=== PATIENT | male | born 1940 | race Caucasian/White ===

== ENCOUNTER 2020-10-05 08:20 | Outpatient (REF) | payer MEDICARE, SELFPAY ==
--- NOTE | 2020-10-05 | US_ITS ---
EXAMINATION: COLOR-FLOW DUPLEX IMAGING OF THE BILATERAL LOWER EXTREMITY ARTERIAL SYSTEM. VELOCITY MEASUREMENTS THROUGHOUT THE FEMORAL ARTERIES WITH ANKLE-BRACHIAL PERIPHERAL ARTERIAL TESTING. Interventional Radiologist: Matt Ferrell M.D., F.S.I.R., F.A.C.R. CLINICAL INFORMATION: This is an 79-year-old male with peripheral arterial disease. RIGHT FEMORAL RUNOFF VELOCITIES: The right common femoral artery measures 37 cm/s and monophasic. The right profunda femoral artery is 88 cm/s and is monophasic. Right proximal superficial femoral artery measures 11 cm/s and monophasic. Mid superficial femoral artery is occluded. Distal right superficial femoral artery is occluded. Right popliteal velocity is occluded. The posterior tibial artery velocity measures 23 cm/s and was monophasic. The right ankle-brachial index is 0.67. LEFT FEMORAL RUNOFF VELOCITIES: The left common femoral artery measures 90 cm/s and monophasic. The left profunda femoral artery is 34 cm/s and is monophasic. Left proximal superficial femoral artery measures 121 cm/s and monophasic. Mid superficial femoral artery is 42 cm/s and biphasic. Distal left superficial femoral artery is occluded. Left popliteal velocity is occluded. The posterior tibial artery velocity measures 16 cm/s and was monophasic. The left ankle-brachial index is 0.65 Atherosclerotic plaque is seen throughout the arteries bilaterally. US/US FAMILIA complete IMPRESSION: 1. Abnormal severe peripheral arterial testing with abnormal bilateral ankle-brachial index and velocity measurements. 2. There are likely bilateral superficial femoral artery occlusions.
--- NOTE | 2020-10-05 | US_ITS ---
EXAMINATION: COLOR-FLOW DUPLEX IMAGING OF THE BILATERAL LOWER EXTREMITY ARTERIAL SYSTEM. VELOCITY MEASUREMENTS THROUGHOUT THE FEMORAL ARTERIES WITH ANKLE-BRACHIAL PERIPHERAL ARTERIAL TESTING. Interventional Radiologist: Matt Ferrell M.D., F.S.I.R., F.A.C.R. CLINICAL INFORMATION: This is an 79-year-old male with peripheral arterial disease. RIGHT FEMORAL RUNOFF VELOCITIES: The right common femoral artery measures 37 cm/s and monophasic. The right profunda femoral artery is 88 cm/s and is monophasic. Right proximal superficial femoral artery measures 11 cm/s and monophasic. Mid superficial femoral artery is occluded. Distal right superficial femoral artery is occluded. Right popliteal velocity is occluded. The posterior tibial artery velocity measures 23 cm/s and was monophasic. The right ankle-brachial index is 0.67. LEFT FEMORAL RUNOFF VELOCITIES: The left common femoral artery measures 90 cm/s and monophasic. The left profunda femoral artery is 34 cm/s and is monophasic. Left proximal superficial femoral artery measures 121 cm/s and monophasic. Mid superficial femoral artery is 42 cm/s and biphasic. Distal left superficial femoral artery is occluded. Left popliteal velocity is occluded. The posterior tibial artery velocity measures 16 cm/s and was monophasic. The left ankle-brachial index is 0.65 Atherosclerotic plaque is seen throughout the arteries bilaterally. US/US arterial duplex LE BI IMPRESSION: 1. Abnormal severe peripheral arterial testing with abnormal bilateral ankle-brachial index and velocity measurements. 2. There are likely bilateral superficial femoral artery occlusions.
== END 2020-10-05 08:21 | disposition home or self-care (01) ==
LOC: HO.US 08:20
PROVIDERS: PCP Internal Medicine; Visit Provider Surgery Vascular Surgery
DX: I73.9 Peripheral vascular disease, unspecified (principal)
CPT/HCPCS: 93923; 93925

== ENCOUNTER → 2020-10-29 09:25 | Outpatient (REF) | payer MEDICARE, SELFPAY ==
--- NOTE | 2020-10-29 | CA_ITS ---
Transthoracic Echocardiogram Patient (Last, First, Middle): Javier Salguero P Gender: Male Date of : 1940 Age: 79 Procedure Date: 10/29/2020 Procedure Type: Transthoracic Echocardiogram Location: OP Height: 170.18 cm Weight: 77.11 kg BSA: 1.89 m2 Heart Rate: bpm BP: 146 / 78 mmHg Tail End Rider: BERNICE Referring MD: Silas Campos MD Pension Consultant: Silas Campos MD Symptoms: ATHEROSCLERTIC HEART DISEASE. Study Quality: Good ECG Rhythm: Sinus Conclusions: - 1. Normal LV systolic function with mild LVH with impaired relaxation filling pattern and elevated filling pressures 2. Moderately dilated left atrium 3. Moderate aortic stenosis 4. [id number] mitral regurgitation 5. Normal RV systolic pressure 6. No pericardial effusion Findings Left Ventricle Normal left ventricular size and systolic function. There is mildly increased left ventricular wall thickness. The visually estimated ejection fraction is between 60-65%. Spectral Doppler is indicative of an impaired relaxation filling pattern. Elevated filling pressures. Right Ventricle Normal right ventricular cavity size and systolic function. Atria The left atrium is moderately dilated. There is no evidence of interatrial shunt. The right atrium is likely dilated. Aortic Valve There is mild calcification of the aortic valve. There is moderate thickening of the aortic valve with reduced excursion. There is moderate aortic valve stenosis. The mean gradient is 24 mmHg. There is no aortic valve regurgitation. There is discrepancy between the calculated valve area and gradients. Dimensionless index is 0.3, this is more suggestive of moderate aortic valve stenosis. Mitral Valve There is mild anterior and posterior mitral leaflet thickening. There is mild mitral annular calcification. There is mild to moderate mitral valve regurgitation. There is no mitral valve stenosis. Pulmonic Valve The pulmonic valve was not well visualized. Tricuspid Valve Normal tricuspid valve structure. There is mild tricuspid valve regurgitation. The right ventricular systolic pressure is normal. The right ventricular systolic pressure is 27 mmHg. Normal right atrial pressure. There is no evidence of pulmonary hypertension. Great Vessels All visible segments of the aorta are normal in size. The pulmonary artery was not well visualized. Venous The inferior vena cava is normal in size and collapses greater than 50% with inspiration. Pericardium/Pleural There is no evidence of pericardial effusion. Prior Study Comparison Changes noted compared to prior study dated: 10/16/2019. aortic stenosis is worse Measurements 2D Linear Measurements IVSd: 1.50 0.6-0.9/0.6-1.0 cm LVIDd: 4.95 3.9-5.3/4.2-5.9 cm LVIDd Index: 2.62 2.4-3.2/2.2-3.1 cm/m2 LVIDs: 3.38 2.0-3.6 cm LVPWd: 1.09 0.7-1.1 cm Ao Root: 3.30 2.1-3.5 cm LA Diam: 4.30 2.7-3.8/3.0-4.0 cm LAIDs Index: 2.28 1.5-2.3 cm/m2 LV Mass: 319.67 67-162/88-224 g LV Mass Index: 169.14 43-95/49-115 g/m2 LVOT Diam: 2.10 3.0+(-)1.3 cm 2D Systolic Function EF 4C: 62.00 >55% EF 2C: 62.00 >55% Mitral Valve MV Pk E: 0.91 MV PK A: 1.05 MV Decel Time: 135.00 E/A: 0.90 E'Lateral: 6.38 E'Medial: 5.51 E/E' Med: 16.50 E/E' Lat: 14.20 PHT: 39.00 MVA PHT: 5.64 Decel [place]: 6.73 Aortic Valve AoV Pk Oscar: 3.33 AoV Mn Oscar: 2.23 AoV VTI: 91.20 AoV Pk Grad: 44.00 Aov Mn Grad: 24.00 IZZY Cont.VTI: 1.10 LVOT LVOT Pk Oscar: 0.99 LVOT Mn Oscar: 0.65 LVOT VTI: 0.23 LVOT Pk Grad: 4.00 LVOT Mn Grad: 2.00 LVOT Diam: 2.10 LVOT Area: 3.46 Diastolic Function MV Pk E: 0.91 MV Pk A: 1.05 E/A: 0.90 E'Medial: 5.51 E/E' Med: 16.50 E' Laterial: 6.38 E/E' Lat: 14.20 Tricuspid Valve TR Pk Oscar: 2.47 TR Pk Grad: 24.00 RA Press: 3.00 RVSP: 27.00 Great Vessels Aorta Ao Root-2D: 3.30 2.0-3.7 cm Ao Asc: 3.70 2.1-3.4 cm Updated in Other Vendor System with Status of Final Silas Campos MD electronically signed on 10/30/2020 2:59:57 PM with status of Final
== END ==
LOC: HO.CARD 09:25
PROVIDERS: PCP Internal Medicine; Visit Provider Internal Medicine Cardiovascular Disease
DX: I25.10 Atherosclerotic heart disease of native coronary artery without angina pectoris (principal); I35.0 Nonrheumatic aortic (valve) stenosis; Z95.1 Presence of aortocoronary bypass graft
CPT/HCPCS: 93306

== ENCOUNTER → 2020-11-05 09:06 | Outpatient (BNVA) | payer MEDICARE, SELFPAY | PROVIDERS: PCP Internal Medicine; Referring Provider Internal Medicine; Visit Provider Internal Medicine Cardiovascular Disease | DX: I73.9 Peripheral vascular disease, unspecified (principal); I65.23 Occlusion and stenosis of bilateral carotid arteries; I25.10 Atherosclerotic heart disease of native coronary artery without angina pectoris; I35.0 Nonrheumatic aortic (valve) stenosis; Z79.899 Other long term (current) drug therapy | CPT/HCPCS: 93005; 99212; Q3014 ==

== ENCOUNTER → 2021-05-10 09:41 | Outpatient (BNVA) | payer MEDICARE, SELFPAY | PROVIDERS: PCP Internal Medicine; Referring Provider Internal Medicine; Visit Provider Internal Medicine Cardiovascular Disease | DX: I25.10 Atherosclerotic heart disease of native coronary artery without angina pectoris (principal); I35.0 Nonrheumatic aortic (valve) stenosis | CPT/HCPCS: 99212 ==

== ENCOUNTER → 2021-10-29 08:10 | Outpatient (REF) | payer MEDICARE, SELFPAY ==
--- NOTE | 2021-10-29 08:13 | CA_ITS ---
Transthoracic Echocardiogram Patient (Last, First, Middle): Javier Salguero P Gender: Male Date of : 1940 Age: 80 Procedure Date: 10/29/2021 Procedure Type: Transthoracic Echocardiogram Location: OP Height: 170.18 cm Weight: 77.57 kg BSA: 1.89 m2 Heart Rate: bpm BP: 140 / 80 mmHg Cleater: DEMETRIO Referring MD: Silas Campos MD Symptoms: I35.0 - Nonrheumatic aortic (valve) stenosis Study Quality: Good ECG Rhythm: Sinus Conclusions: - The left ventricular systolic function is normal. The visually estimated ejection fraction is between 55-60%. - E/E prime ratio is >15, consistent with elevated filling pressures. - There is moderate aortic valve stenosis. - There is mild mitral annular calcification. There is mild mitral valve regurgitation. - Mild pulmonary hypertension is present. Findings Left Ventricle Normal left ventricular cavity size. The left ventricular systolic function is normal. The visually estimated ejection fraction is between 55-60%. There is no evidence of regional wall motion abnormalities. E/E prime ratio is >15, consistent with elevated filling pressures. Evidence suggests grade I (mild) diastolic dysfunction. There is moderate septal and moderate basal asymmetric hypertrophy. Right Ventricle Normal right ventricular cavity size and systolic function. Atria The left atrium is mildly dilated. The right atrium is normal in size. Aortic Valve There is severe calcification of the aortic valve. There is moderate aortic valve stenosis. The peak aortic velocity is 3.47 m/s with a calculated peak gradient of 48 mmHg. The mean gradient is 30 mmHg. The aortic valve area is 1.00 cm2. There is mild aortic valve regurgitation. Dimensionless index 0.3. Stroke volume index 46cc. Mitral Valve There is mild mitral annular calcification. There is mild mitral valve regurgitation. There is no mitral valve stenosis. Pulmonic Valve The pulmonic valve was not well visualized. Tricuspid Valve Normal tricuspid valve structure. There is mild tricuspid valve regurgitation. The right ventricular systolic pressure is 41 mmHg. Mild pulmonary hypertension is present. Great Vessels The aortic annulus, sinuses of valsalva, and asc aorta are normal in size. Venous The inferior vena cava is mildly dilated and collapses greater than 50% with inspiration. Pericardium/Pleural There is no evidence of pericardial effusion. Prior Study Comparison Changes noted compared to prior study dated: 10/29/2020. Slight increase in aortic gradients, pulmonary artery pressure. Measurements 2D Linear Measurements IVSd: 1.27 0.6-0.9/0.6-1.0 cm LVIDd: 4.28 3.9-5.3/4.2-5.9 cm LVIDd Index: 2.26 2.4-3.2/2.2-3.1 cm/m2 LVIDs: 3.08 2.0-3.6 cm LVPWd: 1.27 0.7-1.1 cm Ao Root: 3.60 2.1-3.5 cm LA Diam: 4.30 2.7-3.8/3.0-4.0 cm LAIDs Index: 2.28 1.5-2.3 cm/m2 LV Mass: 248.36 67-162/88-224 g LV Mass Index: 131.41 43-95/49-115 g/m2 LVOT Diam: 2.10 3.0+(-)1.3 cm 2D Systolic Function EF 4C: 55.80 >55% EF 2C: 55.20 >55% EF BiP: 54.80 >55% Mitral Valve MV Pk E: 0.93 MV PK A: 1.18 MV Decel Time: 218.00 E/A: 0.80 E'Lateral: 6.42 E'Medial: 5.00 E/E' Med: 18.50 E/E' Lat: 14.40 PHT: 64.00 MVA PHT: 3.44 Decel [place]: 4.26 Aortic Valve AoV Pk Oscar: 3.47 AoV Mn Oscar: 2.62 AoV VTI: 0.87 AoV Pk Grad: 48.00 Aov Mn Grad: 30.00 IZZY Cont.VTI: 1.00 LVOT LVOT Pk Oscar: 1.05 LVOT Mn Oscar: 0.65 LVOT VTI: 0.25 LVOT Pk Grad: 4.00 LVOT Mn Grad: 2.00 LVOT Diam: 2.10 LVOT Area: 3.46 Diastolic Function MV Pk E: 0.93 MV Pk A: 1.18 E/A: 0.80 E'Medial: 5.00 E/E' Med: 18.50 E' Laterial: 6.42 E/E' Lat: 14.40 Right Ventricle TAPSE (mm): 1.75 TVS' Oscar: 9.14 Tricuspid Valve TR Pk Oscar: 2.88 TR Pk Grad: 33.00 RA Press: 8.00 RVSP: 41.00 Great Vessels Aorta Ao Root-2D: 3.60 2.0-3.7 cm Ao Asc: 3.60 2.1-3.4 cm Ao Arch: 3.20 Updated in Other Vendor System with Status of Final Corby Crouch MD electronically signed on 10/30/2021 12:11:43 PM with status of Final
== END ==
LOC: HO.CARD 08:10
PROVIDERS: PCP Internal Medicine; Visit Provider Internal Medicine Cardiovascular Disease
DX: I35.0 Nonrheumatic aortic (valve) stenosis (principal)
CPT/HCPCS: 93306

== ENCOUNTER → 2021-11-03 08:27 | Outpatient (BNVA) | payer MEDICARE, SELFPAY | PROVIDERS: PCP Internal Medicine; Referring Provider Internal Medicine; Visit Provider Internal Medicine Cardiovascular Disease | DX: I25.10 Atherosclerotic heart disease of native coronary artery without angina pectoris (principal); I35.0 Nonrheumatic aortic (valve) stenosis | CPT/HCPCS: 93005; 99212 ==

== ENCOUNTER 2021-11-04 06:54 | Outpatient (REF) | payer MEDICARE, SELFPAY ==
[2021-11-04 07:30] LABS: Cholesterol 136 mg/dL; HDL Cholesterol 40 mg/dL; LDL Cholesterol Calculated 70 mg/dl; Triglycerides 131 mg/dL
== END 2021-11-04 06:55 | disposition home or self-care (01) ==
LOC: HO.LAB 06:54
PROVIDERS: Visit Provider Internal Medicine Cardiovascular Disease
DX: I25.10 Atherosclerotic heart disease of native coronary artery without angina pectoris (principal)
CPT/HCPCS: 36415; 80061

== ENCOUNTER 2021-11-29 13:11 | Outpatient (REF) | payer MEDICARE, SELFPAY ==
--- NOTE | ~2021-11-29 | US_ITS ---
EXAMINATION: US ARTERIAL DOPPLER LOWER EXTREMITY, BILATERAL US FAMILIA COMPLETE CLINICAL INFORMATION: Peripheral vascular disease. COMPARISON: 10/05/2020 and 03/19/2020. TECHNIQUE: Ankle pressure measurements, ankle-brachial indices and PVR tracings were obtained of the lower extremity arterial system bilaterally. In addition, duplex Doppler techniques with waveform analysis and measurement of velocities in the common femoral, profunda femoral, superficial femoral, popliteal and tibial arteries was performed. The study was performed only at rest. FINDINGS: NONINVASIVE ASSESSMENT OF THE ARTERIES OF BOTH LOWER EXTREMITIES WITH ABIs: Right Leg: Right ankle-brachial index: 0.63 PVR (ankle): Dampened Left Leg: Ankle-brachial index: 0.59 PVR (ankle): Dampened BILATERAL LOWER EXTREMITY DUPLEX ULTRASOUND: Right Leg: Common femoral artery: 22.9 cm/s. Diastolic flow reversal: No Profunda femoris artery: 86.4 cm/s. Diastolic flow reversal: No Superficial femoral artery (proximal): 10.2 cm/s. Diastolic flow reversal: No Superficial femoral artery (mid): Occluded Superficial femoral artery (distal): Occluded Popliteal artery (distal): 8.1 cm/s. Diastolic flow reversal: No (the proximal popliteal artery is occluded) Posterior tibial artery: 46.3 cm/s. Diastolic flow reversal: No Peroneal artery: 19.8 cm/s. Diastolic flow reversal: No Multiple arterial collaterals are present throughout the leg. Left Leg: Common femoral artery: 61.3 cm/s. Diastolic flow reversal: No Profunda femoris artery: 94.3 cm/s. Diastolic flow reversal: No Superficial femoral artery (proximal): 24.5 cm/s. Diastolic flow reversal: No Superficial femoral artery (mid): Occluded Superficial femoral artery (distal): 10.6 cm/s. Diastolic flow reversal: No Popliteal artery (distal): 27.6 cm/s. Diastolic flow reversal: No Posterior tibial artery: 26.4 cm/s. Diastolic flow reversal: No Multiple arterial collaterals are present throughout the leg. US/US arterial duplex LE BI IMPRESSION: RIGHT LEG: FAMILIA 0.63. There is persistent occlusion of the mid and distal SFA as well as occlusion of the proximal popliteal artery, similar to the comparison examination. Decreased velocity and monophasic waveform within the common femoral artery suggests inflow stenosis. LEFT LEG: FAMILIA 0.59. There is focal occlusion of the mid SFA. Mildly decreased velocity and monophasic waveform within the common femoral artery suggests inflow stenosis. FAMILIA Reference: - >0.97-1.25 = normal - no significant arterial disease - 0.75-0.96 = mild peripheral arterial disease - 0.5-0.74 = moderate peripheral arterial disease - <0.50 = severe peripheral arterial disease
--- NOTE | ~2021-11-29 | US_ITS ---
EXAMINATION: US EXTRACRANIAL CAROTID DUPLEX, BILATERAL CLINICAL INFORMATION: History of carotid artery stenosis. COMPARISON: March 19, 2020 and March 19, 2019 TECHNIQUE: Real-time ultrasound and Doppler techniques (integrating B-mode 2-D vascular images, Doppler spectral analysis and color-flow Doppler imaging) were utilized to interrogate the extracranial carotid arteries, the vertebral arteries and proximal subclavian arteries bilaterally. The degree of stenosis is determined by criteria similar to NASCET. FINDINGS: Right Side: 1. There is mild atherosclerotic plaque seen in the bifurcation/proximal ICA region. 2. The common carotid artery PSV proximally is 96.2 cm/s and distally 85.6 cm/s. 3. The proximal internal carotid artery velocities are 86.2 cm/s systolic and 25.2 cm/s diastolic. 4. The proximal external carotid artery PSV is 85 cm/s. 5. The vertebral artery shows antegrade flow. 6. The subclavian artery waveforms are normal. Left Side: 1. There is moderate atherosclerotic plaque seen in the bifurcation/proximal ICA region. 2. The common carotid artery PSV proximally is 83.8 cm/s and distally 56.2 cm/s. 3. The proximal internal carotid artery velocities are 183 cm/s systolic and 34 cm/s diastolic. 4. The proximal external carotid artery PSV is 142 cm/s. 5. The vertebral artery shows antegrade flow. 6. The subclavian artery waveforms are normal. US/US carotid duplex BI IMPRESSION: 1. RIGHT: Minimal, non-hemodynamically significant stenosis of the proximal right internal carotid artery corresponding to a 0-49% stenosis by velocity criteria. 2. LEFT: Moderate, hemodynamically significant stenosis of the proximal left internal carotid artery corresponding to a 50-79% stenosis by velocity criteria. 3. There is no change in the category severity of disease when compared to the previous study dated March 19, 2020..
== END 2021-11-29 13:12 | disposition home or self-care (01) ==
LOC: HO.US 13:11
PROVIDERS: Visit Provider Surgery Vascular Surgery
DX: I73.9 Peripheral vascular disease, unspecified (principal); I65.23 Occlusion and stenosis of bilateral carotid arteries
CPT/HCPCS: 93880; 93923; 93925

== ENCOUNTER → 2021-12-07 10:47 | Outpatient (BNVA) | payer MEDICARE, SELFPAY | PROVIDERS: PCP Internal Medicine; Visit Provider Surgery Vascular Surgery | DX: I73.9 Peripheral vascular disease, unspecified (principal); I65.23 Occlusion and stenosis of bilateral carotid arteries | CPT/HCPCS: 99212 ==

== ENCOUNTER → 2022-05-12 08:31 | Outpatient (BNVA) | payer MEDICARE, SELFPAY | PROVIDERS: PCP Internal Medicine; Referring Provider Internal Medicine; Visit Provider Internal Medicine Cardiovascular Disease | DX: I25.10 Atherosclerotic heart disease of native coronary artery without angina pectoris (principal); I35.0 Nonrheumatic aortic (valve) stenosis | CPT/HCPCS: 99212 ==

== ENCOUNTER 2022-12-13 09:48 | Outpatient (REF) | payer MEDICARE, SELFPAY ==
--- NOTE | ~2022-12-13 | US_ITS ---
EXAMINATION: US EXTRACRANIAL CAROTID DUPLEX, BILATERAL CLINICAL INFORMATION: Carotid stenosis COMPARISON: 11/29/2021 TECHNIQUE: Real-time ultrasound and Doppler techniques (integrating B-mode 2-D vascular images, Doppler spectral analysis and color-flow Doppler imaging) were utilized to interrogate the extracranial carotid arteries, the vertebral arteries and proximal subclavian arteries bilaterally. The degree of stenosis is determined by criteria similar to NASCET. FINDINGS: Right Side: 1. There is moderate atherosclerotic plaque seen in the bifurcation/proximal ICA region. 2. The common carotid artery PSV proximally is 84 cm/s and distally 79 cm/s. 3. The proximal internal carotid artery velocities are 36 cm/s systolic and 9 cm/s diastolic. 4. The proximal external carotid artery PSV is 80 cm/s. 5. The vertebral artery shows antegrade flow. 6. The subclavian artery waveforms are normal. Left Side: 1. There is moderate atherosclerotic plaque seen in the bifurcation/proximal ICA region. 2. The common carotid artery PSV proximally is 80 cm/s and distally 52 cm/s. 3. The proximal internal carotid artery velocities are 177 cm/s systolic and 56 cm/s diastolic. 4. The proximal external carotid artery PSV is 127 cm/s. 5. The vertebral artery shows antegrade flow. 6. The subclavian artery waveforms are normal. US/US carotid duplex BI IMPRESSION: 1. RIGHT: Minimal, non-hemodynamically significant stenosis of the proximal right internal carotid artery corresponding to a 0-49% stenosis by velocity criteria. 2. LEFT: Moderate, hemodynamically significant stenosis of the proximal left internal carotid artery corresponding to a 50-79% stenosis by velocity criteria. 3. There is no change in the category severity of disease when compared to the previous study dated 11/29/2021.
--- NOTE | ~2022-12-13 | US_ITS ---
EXAMINATION: NONINVASIVE ASSESSMENT OF THE ARTERIES OF BOTH LOWER EXTREMITIES INCLUDING PVR EXAM AND BILATERAL LOWER EXTREMITY DUPLEX CLINICAL INFORMATION: Peripheral vascular disease, unspecified COMPARISON: Ultrasound 11/29/2021 TECHNIQUE: Ankle pulse volume recordings, ankle pressure measurements and ankle brachial indices were obtained of the lower extremity arterial system bilaterally in addition to duplex Doppler techniques with wave form analysis and measurement of velocities in the common femoral, profunda femoral, superficial femoral, popliteal, tibial and peroneal arteries. The study was performed only at rest. FINDINGS: RIGHT LEG 1. Right Ankle-Brachial Index: 0.63 (higher of the DP/PT), unchanged from prior >0.97-1.25 = normal - no significant arterial disease 0.75-0.96 = mild peripheral arterial disease 0.5-0.74 = moderate peripheral arterial disease <0.50 = severe peripheral arterial disease <0.30 = critical arterial disease 2. Segmental Pressures (mmHg): Brachial: 140 Ankle: PT 93, DP 91 3. PVR Waveforms: Ankle: Abnormal, dampened 4. Direct Duplex: External iliac artery: 100 cm/s, monophasic Common femoral artery: 11 cm/s, monophasic Profunda femoris artery: 101 cm/s, monophasic Superficial femoral artery (proximal): 17.3 cm/s, monophasic Superficial femoral artery (mid): No demonstrable flow Superficial femoral artery (distal): 23.1 cm/s, monophasic There is a collateral vessel to the distal superficial femoral artery, peak systolic velocity 35.7 cm/s, monophasic Proximal Popliteal artery: 36.2 cm/s, monophasic Distal popliteal artery: 6.7 cm/s, monophasic Mid posterior tibial artery: 30.7 cm/s, monophasic Peroneal artery: 14.3 cm/s, monophasic LEFT LE. Left Ankle-Brachial Index: 0.58 (higher of the DP/PT), previously 0.59 >0.97-1.25 = normal - no significant arterial disease 0.75-0.96 = mild peripheral arterial disease 0.5-0.74 = moderate peripheral arterial disease <0.50 = severe peripheral arterial disease <0.30 = critical arterial disease 2. Segmental Pressures: Brachial: 147 Ankle: PT 85, DP 74 3. PVR Waveforms: Ankle: Abnormal, dampened 4. Direct Duplex: Common femoral artery: 80.9 cm/s, monophasic Profunda femoris artery: 511 cm/s, monophasic Superficial femoral artery (proximal): 53.4 cm/s, monophasic Superficial femoral artery (mid): No demonstrable flow Superficial femoral artery (distal): 12.6 cm/s, monophasic Proximal Popliteal artery: 35.8 cm/s, monophasic Mid posterior tibial artery: 34.6 cm/s, monophasic Peroneal artery: 12.9 cm/s, monophasic US/US arterial duplex LE BI IMPRESSION: 1. Right FAMILIA 0.63, unchanged from prior. There is monophasic flow throughout the right lower extremity. There is decreased velocity within the common femoral artery compared with the external iliac artery suggestive of inflow disease. There is probable segmental occlusion of the superficial femoral artery at its midportion 2. Left FAMILIA 0.58, previously 0.59. There is monophasic flow throughout the left lower extremity. There is elevated velocity at the profunda femoris origin suggesting a focal stenosis. There is occlusion at the midportion of the superficial femoral artery with reformation of flow distally.
== END 2022-12-13 09:49 | disposition home or self-care (01) ==
LOC: HO.US 09:48
PROVIDERS: PCP Internal Medicine; Visit Provider Surgery Vascular Surgery
DX: I65.23 Occlusion and stenosis of bilateral carotid arteries (principal); I73.9 Peripheral vascular disease, unspecified
CPT/HCPCS: 93880; 93923; 93925

== ENCOUNTER → 2022-12-22 13:17 | Outpatient (BNVA) | payer MEDICARE, SELFPAY | PROVIDERS: PCP Internal Medicine; Visit Provider Surgery Vascular Surgery | DX: I65.23 Occlusion and stenosis of bilateral carotid arteries (principal); I73.9 Peripheral vascular disease, unspecified | CPT/HCPCS: 99212 ==

== ENCOUNTER → 2023-04-28 08:50 | Outpatient (REF) | payer MEDICARE, SELFPAY ==
--- NOTE | 2023-04-28 08:52 | CA_ITS ---
Transthoracic Echocardiogram Patient (Last, First, Middle): Javier Salguero P Gender: Male Date of : 1940 Age: 82 Procedure Date: 04/28/2023 Procedure Type: Transthoracic Echocardiogram Location: OP Height: 170.18 cm Weight: 77.11 kg BSA: 1.89 m2 Heart Rate: 79 bpm BP: 130 / 70 mmHg Russian Language Instructor: TO Referring MD: Silas Campos MD Local Operator: Silas Campos MD Symptoms: I35.0 - Nonrheumatic aortic (valve) stenosis Study Quality: Adequate ECG Rhythm: Sinus Conclusions: - 1. Normal LV systolic function with impaired relaxation filling pattern 2. Mildly dilated left atrium 3. Severe aortic stenosis with mean gradient of 40 mmHg 4. Rbzf-ah-xfhuwnhe mitral regurgitation 5. Mildly dilated ascending aorta at 3.9 cm 6. Normal RV systolic pressure 7. No pericardial effusion Findings Left Ventricle Normal left ventricular size, thickness, and systolic function. The visually estimated ejection fraction is between 60-65%. Spectral Doppler is indicative of an impaired relaxation filling pattern. E/E prime ratio is between 8 and 15 consistent with indeterminate filling pressures. There is mild septal asymmetric hypertrophy. Right Ventricle Normal right ventricular cavity size and systolic function. Atria The left atrium is mildly dilated. There is no evidence of interatrial shunt. The right atrium is likely dilated. Aortic Valve There is mild calcification of the aortic valve. There is mild thickening of the aortic valve. There is severe aortic valve stenosis. The peak aortic gradient is 69 mmHg.The mean gradient is 40 mmHg. The aortic valve area is 0.89 cm2. There is no aortic valve regurgitation. Mitral Valve There is mild anterior and moderate posterior mitral leaflet thickening. There is moderate mitral annular calcification. There is mild to moderate mitral valve regurgitation. There is no mitral valve stenosis. Pulmonic Valve The pulmonic valve is likely normal. There is trace to mild pulmonic valve regurgitation. Tricuspid Valve Normal tricuspid valve structure. There is trace tricuspid valve regurgitation. The right ventricular systolic pressure is normal. The right ventricular systolic pressure is 24 mmHg. Normal right atrial pressure. There is no evidence of pulmonary hypertension. Great Vessels The pulmonary artery was not well visualized. There is mild dilatation of the ascending aorta measuring 3.90 cm. Venous The inferior vena cava is normal in size and collapses greater than 50% with inspiration. Pericardium/Pleural There is no evidence of pericardial effusion. Prior Study Comparison Changes noted compared to prior study dated: 10/29/2021. Aortic stenosis is severe Measurements 2D Linear Measurements IVSd: 1.43 0.6-0.9/0.6-1.0 cm LVIDd: 4.47 3.9-5.3/4.2-5.9 cm LVIDd Index: 2.37 2.4-3.2/2.2-3.1 cm/m2 LVIDs: 2.65 2.0-3.6 cm LVPWd: 1.02 0.7-1.1 cm LA Diam: 4.10 2.7-3.8/3.0-4.0 cm LAIDs Index: 2.17 1.5-2.3 cm/m2 LV Mass: 298.53 67-162/88-224 g LV Mass Index: 157.95 43-95/49-115 g/m2 LVOT Diam: 2.20 3.0+(-)1.3 cm 2D Systolic Function EF 4C: 60.10 >55% Mitral Valve MV VTI: 0.34 MV Pk Oscar: 1.39 MV Mn Oscar: 0.82 MV Pk Grad: 8.00 MV Mn Grad: 3.00 MVA Continuity: 2.44 MR Vol - PW Dopp: 19.80 MR VTI: 2.20 MR ERO: 9.00 MR Alias Oscar: 0.39 MR RAD: 0.50 Aortic Valve AoV Pk Oscar: 4.15 AoV Mn Oscar: 2.97 AoV VTI: 0.94 AoV Pk Grad: 69.00 Aov Mn Grad: 40.00 IZZY Cont.VTI: 0.89 LVOT LVOT Pk Oscar: 0.95 LVOT Mn Oscar: 0.66 LVOT VTI: 0.22 LVOT Pk Grad: 4.00 LVOT Mn Grad: 2.00 LVOT Diam: 2.20 LVOT Area: 3.80 Right Ventricle TAPSE (mm): 18.70 TVS' Oscar: 10.00 Tricuspid Valve TR Pk Oscar: 2.29 TR Pk Grad: 21.00 RA Press: 3.00 RVSP: 24.00 Great Vessels Aorta Sinus of Valsalva: 3.61 2.0-3.5 cm Ao Asc: 3.90 2.1-3.4 cm Updated in Other Vendor System with Status of Final Silas Campos MD electronically signed on 05/01/2023 9:40:21 AM with status of Final
== END ==
LOC: HO.CARD 08:50
PROVIDERS: PCP Internal Medicine; Visit Provider Internal Medicine Cardiovascular Disease
DX: I35.0 Nonrheumatic aortic (valve) stenosis (principal)
CPT/HCPCS: 93306

== ENCOUNTER → 2023-05-16 08:41 | Outpatient (BNVA) | payer MEDICARE, SELFPAY | PROVIDERS: PCP Internal Medicine; Referring Provider Internal Medicine; Visit Provider Internal Medicine Cardiovascular Disease | DX: I35.0 Nonrheumatic aortic (valve) stenosis (principal); I25.10 Atherosclerotic heart disease of native coronary artery without angina pectoris | CPT/HCPCS: 93005; 99212 ==

== ENCOUNTER 2023-08-29 16:02 | Observation (INO) | payer MEDICARE, SELFPAY ==
--- NOTE | ~2023-08-29 | US_ITS ---
EXAMINATION: US EXTRACRANIAL CAROTID DUPLEX, BILATERAL CLINICAL INFORMATION: Syncope and history of left carotid stenosis COMPARISON: 12/13/2022 TECHNIQUE: Real-time ultrasound and Doppler techniques (integrating B-mode 2-D vascular images, Doppler spectral analysis and color-flow Doppler imaging) were utilized to interrogate the extracranial carotid arteries, the vertebral arteries and proximal subclavian arteries bilaterally. The degree of stenosis is determined by criteria similar to NASCET. FINDINGS: Right Side: 1. There is mild atherosclerotic plaque seen in the bifurcation/proximal ICA region. 2. The common carotid artery PSV proximally is 83.8 cm/s and distally 114 cm/s. 3. The proximal internal carotid artery velocities are 102 cm/s systolic and 36.4 cm/s diastolic. 4. The proximal external carotid artery PSV is 82.9 cm/s. 5. The vertebral artery shows antegrade flow. 6. The subclavian artery waveforms are normal. Left Side: 1. There is moderate atherosclerotic plaque seen in the bifurcation/proximal ICA region. 2. The common carotid artery PSV proximally is 123 cm/s and distally 89.7 cm/s. 3. The proximal internal carotid artery velocities are 176 cm/s systolic and 48.4 cm/s diastolic. 4. The proximal external carotid artery PSV is 204 cm/s. 5. The vertebral artery shows antegrade flow. 6. The subclavian artery waveforms are normal. US/US carotid duplex BI IMPRESSION: 1. RIGHT: Minimal, non-hemodynamically significant stenosis of the proximal right internal carotid artery corresponding to a 0-49% stenosis by velocity criteria. 2. LEFT: Moderate, hemodynamically significant stenosis of the proximal left internal carotid artery corresponding to a 50-79% stenosis by velocity criteria. 3. There is no change in the category severity of disease when compared to the previous study dated 12/13/2022.
--- NOTE | ~2023-08-29 | XR_ITS ---
EXAMINATION: XR CHEST CLINICAL INFORMATION: TIA COMPARISON: None available. TECHNIQUE: Frontal view of the chest was obtained. FINDINGS: Median sternotomy wires. Heart size within normal limits. Aortic calcifications. No vascular congestion. Left base atelectasis. No consolidations or effusions. Bony structures are intact.. XR/XR chest 1V IMPRESSION: Left base atelectasis.
--- NOTE | ~2023-08-29 | CT_ITS ---
EXAMINATION: CT HEAD WITHOUT CONTRAST CLINICAL INFORMATION: Fall. Pain COMPARISON: Portions of previous 05/18/20 TECHNIQUE: Multidetector CT examination of the head is performed without contrast. This CT examination was performed using dose optimization techniques as appropriate, variously including the following: *Automated exposure control *Adjustment of mA and/or kV according to patient size (this includes techniques or standardized protocols for targeted exams where dose is matched to indication/reason for exam; i.e. extremities or head) *Use of iterative reconstruction technique DLP: 642 mGy-cm FINDINGS: There is no evidence of a recent intracranial hemorrhage or extra-axial collection. The midline structures are nondisplaced. The ventricles, cisterns, and sulci are within normal limits. There is no evidence of an intra-axial mass. There are no suspicious focal areas of abnormal brain attenuation. The mckeon-white interface is within normal limits. There is no evidence of acute territorial infarct. There is mild to moderate nonspecific white matter low attenuation similar to previous. This could be related to microangiopathy The paranasal sinuses and mastoids are within normal limits. I suspect a scalp hematoma. CT/CT head/brain wo IV con IMPRESSION: 1. There is no evidence of a recent intracranial hemorrhage. 2. No acute infarct. 3. Nonspecific unchanged white matter disease
[2023-08-29 16:12] VITALS: BP 166/120; PULSE 88; O2SAT 98
--- NOTE | 2023-08-29 16:19 | ECG_ITS ---
Test Reason : fall Blood Pressure : / mmHG Vent. Rate : 086 BPM Atrial Rate : 086 BPM P-R Int : 154 ms QRS Dur : 120 ms QT Int : 368 ms P-R-T Axes : 022 -02 066 degrees QTc Int : 440 ms Normal sinus rhythm Left ventricular hypertrophy with QRS widening ( [employer] , [employer] product ) Nonspecific ST and T wave abnormality Abnormal ECG When compared with ECG of 23-NOV-2011 07:10, No significant change was found Referred By: Adrianna Hanks Electronically Signed By:ADELA BURGESS
--- NOTE | 2023-08-29 16:20 | ED_ITS ---
HPI - General Adult General Chief complaint: Altered Mental Status Stated complaint: STROKE ALERT Time Seen by Provider: 08/29/23 16:18 Source: patient, family (Daughter) and EMS Mode of arrival: EMS Limitations: no limitations History of Present Illness HPI narrative: 82-year-old male history of hypertension brought in by ambulance for evaluation of possible TIA versus stroke. Started with a mechanical fall the patient sustained this morning patient was going upstairs missed a step fell backward hitting the back of his head no LOC, patient landed on the back of his head and the left elbow causing skin tear and low back pain. Then the patient after that witnessed by his daughter for about few minutes period staring at her with no respond patient was not able to express himself or move, patient was not able to remember the event or recall any loss of consciousness. On arrival patient is awake, moving 4 extremities, was able to give history of the fall but not unresponsiveness. Patient complains of no headache or blurry vision no CP no SOB no abdominal pain. Grand daughter is at the bedside requesting to transfer the patient to [facility], attempts to transfer the patient to [facility] was declined by [facility] since they close for transfer. Related Data Home Medications Medication Instructions Recorded Confirmed atorvastatin 80 mg tablet 80 mg PO DAILY 11/05/20 05/16/23 cilostazol 100 mg tablet 100 mg PO BID 11/05/20 05/16/23 famotidine 20 mg tablet 20 mg PO BID PRN gi upset 11/05/20 05/16/23 ibuprofen 800 mg tablet 800 mg PO BID PRN Pain 11/05/20 05/16/23 lisinopril 20 mg tablet 20 mg PO DAILY 11/05/20 05/16/23 metoprolol tartrate 50 mg tablet 50 mg PO BID 11/05/20 05/16/23 ascorbate calcium (vitamin C) 500 500 mg PO DAILY 05/10/21 05/16/23 mg tablet aspirin 81 mg tablet,delayed 81 mg PO .everyother day 11/03/21 05/16/23 release (Adult Low Dose Aspirin) betamethasone dipropionate 0.05 % 1 appl topical BID 08/29/23 lotion Previous Rx's Medication Instructions Recorded ezetimibe 10 mg tablet 10 mg PO DAILY #90 tabs 10/17/22 Allergies Allergy/AdvReac Type Severity Reaction Status Date / Time pollen extracts [POLLEN] Allergy Mild RUNNY NOSE Verified 08/29/23 16:30 Review of Systems 2 Review of Systems: All other systems are reviewed and are negative Constitutional: Reports as per HPI and Reports no additional constitutional complaints Eyes: Reports as per HPI and Reports no additional eye complaints Reports system reviewed and no additional complaints, except as documented Cardiovascular: Reports as per HPI and Reports no additional cardiovascular complaints Respiratory: Reports as per HPI and Reports no additional respiratory complaints Gastrointestinal: Reports as per HPI and Reports no additional gastrointestinal complaints Genitourinary: Reports no additional female genitourinary complaints Musculoskeletal: Reports no additional musculoskeletal complaints Skin/Breast: Reports system reviewed and no additional complaints, except as docu Psychiatric: Reports no additional psychiatric complaints Endocrine: Reports no additional endocrine complaints Hematologic/Lymphatic: Reports no additional hematologic/lymphatic complaints Allergic/Immunologic: Reports no additional allergic/immunologic complaints Reports system reviewed and no additional complaints, except as documented and Reports Abnormal speech present [facility] Past Medical History Medical History Aortic stenosis CAD (coronary artery disease) Hyperlipidemia HTN (hypertension) Aortic stenosis Peripheral vascular disease Bilateral carotid artery disease Postoperative atrial fibrillation Surgical History Hx of coronary artery bypass graft Family History Family History Father CVD (cardiovascular disease) Mother No problems noted. Social History Social History Advance Directives: No Advance Directives Information Provided: No Physical Exam ED Vital Signs: Vital Signs - 24 hr 08/29/23 16:26 08/29/23 16:52 Temperature 98.4 F 98.8 F Pulse Rate 88 88 Respiratory Rate 18 17 Blood Pressure 141/79 H 141/79 H Pulse Oximetry 96 Oxygen Delivery Method Room Air Room Air BMI result Body Mass Index 26.6 Vital signs have been reviewed and appear to be correct. Blood pressure elevated. Heart rate normal. Respiratory rate normal. Temperature normal. Oxygen saturation normal. Appearance: Alert. Oriented X3. No acute distress. Head: Normal external exam. Normocephalic. Atraumatic. No Mojica signs noted. No raccoon eyes noted Eyes: PERRLA. EOMI. Conjunctiva and sclera normal. Eyelids normal. ENT: TM's Normal. Pharynx normal. Uvula midline. Moist mucous membranes. No trismus noted. No drooling noted. No muffled voice noted. Neck: Normal inspection. Neck supple. FROM. No adenopathy. Thyroid Normal. No meningeal signs. No neck mass noted. CVS: Normal heart rate and rhythm. Heart sound normal. No murmurs noted. Pulses normal throughout. Respiratory: No respiratory distress. Painless inspiration. Breath sounds normal. No wheezes/rales/rhonchi noted. Chest nontender. No accessory muscle usage noted or decreased air movement noted. Abdomen: Soft and nontender. Bowel sounds normal in all 4 quadrants. No distention noted. No organomegaly noted. No visible injury noted. Back: No CVA tenderness. Full range of motion noted. Skin: Skin warm and dry. Normal skin color. Normal skin turgor. No rashes/lesions/lacerations noted. Extremities: No lower extremity edema. Extremities exhibit normal range of motion. Extremities nontender. Neuro: Oriented X 3. Cranial nerve exam: II-XII are grossly intact No motor deficit. No sensory deficit. Reflexes normal. NIH Stroke Scale Internal: Initial- Upon Arrival Level of Consciousness: Alert Level of Consciousness Questions: Answers both questions correctly Level of Consciousness Commands: Performs both tasks correctly Best Gaze: Normal Visual: No visual loss Facial Palsy: Normal Motor Arm (Right): No drift Motor Arm (Left): No drift Motor Leg (Right): No drift Motor Leg (Left): No drift Limb Ataxia: Absent Sensory: Normal Best Language: No aphasia Dysarthia: Normal Extinction and Inattention: No abnormality Score: 0 Course Course Course Narrative: 18;30 82-year-old male came in after having a short period of unresponsiveness and staring. Which could be TIA versus absence seizure. Repeat neuro exam is intact with no deficit. Medical Decision Making Differential Diagnosis Differential Diagnoses: The differential diagnosis associated with the presentation includes (TIA, seizure, intracranial bleed. Electrolyte abnormality, severe anemia.) Admission/Observation Consideration of admission/observation: Escalation of care including admission/observation considered Consult Healthcare Provider Management of the patient was discussed with: Hospitalist (Dr. Ruiz) Lab Data MDM Lab Attestation statement: I reviewed the patient's lab results. 08/29/23 17:13 08/29/23 17:13 Labs: Lab Results 08/29/23 Range/Units 17:13 WBC 9.1 (4.8-10.8) X10*3/uL RBC 3.71 L (4.60-5.80) X10*6/uL Hgb 11.8 L (14.0-18.0) g/dl Hct 33.4 L (42.0-52.0) % MCV 90.0 (80.0-98.0) fL MCH 31.8 (27.0-33.0) pg MCHC 35.3 (31.0-36.0) g/dl RDW 13.0 (11.0-16.0) % Plt Count 116 L (160-400) X10*3/uL MPV 8.7 L (9.4-12.4) fL Immature Gran % (Auto) 0.4 (0.0-0.4) % Neut % (Auto) 82.6 H (45-73) % Lymph % (Auto) 8.0 L (20-40) % Lassen % (Auto) 8.3 (2-11) % Eos % (Auto) 0.4 (0-4) % Baso % (Auto) 0.3 (0-2) % Lymph # (Auto) 0.7 L (1.2-4.9) X10*3/uL Lassen # (Auto) 0.8 (0.1-1.2) X10*3/uL Eos # (Auto) 0.0 (0.0-0.4) X10*3/uL Baso # (Auto) 0.0 (0.0-0.2) X10*3/uL Abs Immat Gran (auto) 0.04 H (0.00-0.03) X10*3/uL Absolute Neuts (auto) 7.5 (2.0-8.3) x10*3/uL Absolute Nucleated RBC 0.000 (0.0-0.012) X10*3/uL Nucleated RBC % (auto) 0.0 (0.0-0.2) /100WBC PT 11.6 (11.1-13.3) SEC INR 1.0 (0.9-1.1) APTT 31.0 (26.0-36.4) SEC Sodium 131 L (135-145) mmol/L Potassium 4.1 (3.3-5.1) mmol/L Chloride 99 (96-108) mmol/L Carbon Dioxide 25 (22-29) mmol/L Anion Gap 11 L (12-20) BUN 20 H (9-16) mg/dL Creatinine 1.33 (0.5-1.4) mg/dL Estim Creat Clear Calc 39.3 Estimated GFR 51 Random Glucose 114 (60-115) mg/dL Calcium 10.2 (8.4-10.2) mg/dL Total Bilirubin 0.8 (0.0-1.0) mg/dL Direct Bilirubin 0.3 (0.0-0.5) mg/dL AST 21 (5-37) U/L ALT 16 (0-40) U/L Alkaline Phosphatase 87 (39-117) U/L Troponin I High Sens 3.9 (<3.5-35.0) ng/L B-Natriuretic Peptide 60 (<100) pg/mL Total Protein 6.9 (6.5-8.0) g/dL Albumin 4.0 (3.5-5.0) g/dL Lipase 23 (8-78) U/L COVID-19 ([facility]) Negative (Negative) COVID-19 Clin Com See Note Independent Interpretation I performed an independent interpretation of an: EKG (Normal sinus rhythm at 86 beats per minutes, LVH, widening of QRS otherwise intervals within normal, no ST-T changes.), Plain X-Ray (Chest: No acute intrathoracic pathology.) and CT Scan (Head: No acute intracranial pathology.) Radiology Impression Discussion of test interpretation with radiology: I have reviewed the radiologist's reading. Discharge Plan Discharge Clinical Impression: Brain TIA Patient Disposition: Admitted As Inpatient
[2023-08-29 16:26] VITALS: BP 141/79; PULSE 88; RESP 18; TEMP 36.9; O2SAT 96; BMI 26.6
--- NOTE | 2023-08-29 16:30 | PC.NURSE ---
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
[2023-08-29 16:52] VITALS: BP 141/79; PULSE 88; RESP 17; TEMP 37.1
[2023-08-29 17:20] LABS: MANUAL DIFF FLAG NO
[2023-08-29 17:23] LABS: Basophils Percent Auto 0.3 % (0-2); Eosinophils Percent Auto 0.4 % (0-4); Hematocrit 33.4 % (42.0-52.0); Hemoglobin 11.8 g/dl (14.0-18.0); Imm Gran Abs Auto 0.04 X10*3/uL (0.00-0.03); Imm Gran Pct Auto 0.4 % (0.0-0.4); Lymphocytes Absolute Auto 0.7 X10*3/uL (1.2-4.9); Mean Corpuscular HGB Conc 35.3 g/dl (31.0-36.0); Mean Corpuscular Hemoglobin 31.8 pg (27.0-33.0); Mean Platelet Volume 8.7 fL (9.4-12.4); Monocytes Absolute Auto 0.8 X10*3/uL (0.1-1.2); Monocytes Percent Auto 8.3 % (2-11); Neutrophils Absolute Auto 7.5 x10*3/uL (2.0-8.3); Neutrophils Percent Auto 82.6 % (45-73); Platelet Count 116 X10*3/uL (160-400); Red Blood Count 3.71 X10*6/uL (4.60-5.80); White Blood Count 9.1 X10*3/uL (4.8-10.8)
[2023-08-29 17:33] LABS: Prothrombin Time 11.6 SEC (11.1-13.3)
[2023-08-29 17:39] LABS: Alanine Aminotransferase 16 U/L (0-40); Alkaline Phosphatase 87 U/L (39-117); Anion Gap 11 (12-20); Aspartate Amino Transferase 21 U/L (5-37); Bilirubin Direct 0.3 mg/dL (0.0-0.5); Bilirubin Total 0.8 mg/dL (0.0-1.0); Blood Urea Nitrogen 20 mg/dL (9-16); Calcium 10.2 mg/dL (8.4-10.2); Carbon Dioxide 25 mmol/L (22-29); Chloride 99 mmol/L (96-108); Creatinine Clr Calc Pharmacy 39.3; Estimated Glomerular Filt Rate 51; Glucose Random 114 mg/dL (60-115); Lipase 23 U/L (8-78); Potassium 4.1 mmol/L (3.3-5.1); Sodium 131 mmol/L (135-145); Total Protein 6.9 g/dL (6.5-8.0)
[2023-08-29 17:44] LABS: B Type Natriuretic Peptide 60 pg/mL (<100); COVID-19 Test Negative (Negative); IDNOW Serial# 08D9AD1C
[2023-08-29 17:46] LABS: Troponin-I High Sensitivity 3.9 ng/L (<3.5-35.0)
--- NOTE | 2023-08-29 18:55 | P.HPHOSP_ITS ---
History of Present Illness Date of Service: 08/29/23 Attending physician on admission: [facility] Chief Complaint: Fall, unresponsiveness Pt is an 82-year-old male with a PMH significant for?CAD s/p CABG, severe aortic stenosis, PAD, HTN, and HLD who presents to the ED for evaluation of a mechanical fall with head strike with subsequent episode of unresponsiveness several hours later. Patient states that earlier today was walking up his outside steps to enter his house when he ?was not pain paying attention? and missed the top step, falling backwards onto the sidewalk. Patient hit the back of his head, his lower back, and his elbow on the concrete denies LOC. Did experience slight headache and a ?bump? on the back of his head and his back which he said soon went away. Had some lower back pain and left elbow pain. Denies lightheadedness or dizziness preceding fall. Pt did not seek medical evaluation and reports the next few hours were uneventful. At 14:00 patient and visited his granddaughter who is a nurse at [facility] [employer]. She bandaged and wrapped his left elbow and took his vitals. She reports BP was initially elevated but subsequently came back to baseline the patient sat and talked. Patient's daughter also stopped by to visit, and patient's family reports he was communicative and seemed at his baseline for 1 hour until around 15:00 when he suddenly became unresponsive, not talking or responding to questions. He could not hold up his head or handle his secretions appear. Family reports he could track them with his eyes but did not blink. They also report a few seconds of twitching/minor convulsions, but no tonic-clonic type activity. Episode lasted approximately 10 minutes and then patient slowly came to and returned to baseline within a few minutes and he was able to walk himself without assistance to the ambulance. Patient states the only prodrome was that his vision became quite ?foggy?. Patient does not have any sense of lost time. Denies numbness or tingling in extremities. No extremity weakness. Denies chest pain/pressure, palpitations. Shortness of breath. Denies fever, chills, nausea, vomiting, abdominal pain. No loss of bladder or bowel function. Patient denies any recent history of illness/infection. In the ED patient was afebrile but slightly hypertensive up to 141/79. Labs were significant for stable H&H of 11.8/33.4, sodium 131, otherwise unremarkable. CXR showed left base atelectasis. CT?of head showed no evidence of recent intracranial hemorrhage or acute infarct. Did show nonspecific unchanged white matter disease. EKG demonstrated normal sinus rhythm with nonspecific ST and T- wave abnormalities, similar to previous. Pt will be admitted to the hospital under observation on telemetry for monitoring and further management of possible seizure in the setting of mechanical fall with head strike. Review of Systems 2 Review of Systems: Mechanical fall at home head strike 10 minutes episode of unresponsiveness Headache No LOC Denies lightheadedness, dizziness No chest pain/pressure, palpitations Denies shortness of breath Yes all other systems are reviewed and are negative [facility] Medical History Aortic stenosis CAD (coronary artery disease) Hyperlipidemia HTN (hypertension) Aortic stenosis Peripheral vascular disease Bilateral carotid artery disease Postoperative atrial fibrillation Family History Father CVD (cardiovascular disease) Mother No problems noted. Surgical History Hx of coronary artery bypass graft Social History Advance Directives: No Advance Directives Information Provided: No Meds Allergies Allergy/AdvReac Type Severity Reaction Status Date / Time pollen extracts [POLLEN] Allergy Mild RUNNY NOSE Verified 08/29/23 16:30 Home Medications Medication Instructions Recorded Confirmed Last Taken Type atorvastatin 80 mg tablet 80 mg PO DAILY 11/05/20 08/29/23 08/29/23 History cilostazol 100 mg tablet 100 mg PO BID@0900,1400 11/05/20 08/29/23 08/29/23 History famotidine 20 mg tablet 20 mg PO BID@0900,1400 gi upset 11/05/20 08/29/23 08/29/23 History ibuprofen 800 mg tablet 800 mg PO BID PRN Pain 11/05/20 08/29/23 08/29/23 History lisinopril 20 mg tablet 20 mg PO DAILY 11/05/20 08/29/23 08/29/23 History metoprolol tartrate 50 mg tablet 50 mg PO BID@0900,1400 11/05/20 08/29/23 08/29/23 History ascorbate calcium (vitamin C) 500 500 mg PO DAILY 05/10/21 08/29/23 08/29/23 History mg tablet aspirin 81 mg tablet,delayed 81 mg PO WESA@0900 11/03/21 08/29/23 08/29/23 History release (Adult Low Dose Aspirin) Physical Exam 2 Vital Signs and Narrative: Vital Signs: Last Vital Signs Temp 98.8 F 08/29/23 16:52 Pulse 88 08/29/23 16:52 Resp 17 08/29/23 16:52 BP 141/79 H 08/29/23 16:52 Pulse Ox 96 08/29/23 16:26 O2 Del Method Room Air 08/29/23 16:52 BMI result Body Mass Index 26.6 Constitutional: Alert, in no acute distress. Mental Status: Oriented to person, place and time. Eyes: Pupils are equal, round, and reactive to light. Head: Possible small hematoma on posterior occipital skull. No sign of trauma, ecchymosis. Ear, Nose, and Throat: Oropharynx clear, mucous membranes moist. Ears and nose without deformities. Trachea midline. Respiratory: Clear to auscultation bilaterally. No wheezing, rales, or rhonchi. Cardiovascular: S1, S2 regular. 3/6 murmur best in aortic position, radiating to left carotid. Gastrointestinal: Abdomen soft, non-tender, non-distended. Normal bowel sounds. Neurologic: Cranial nerves II-XII are grossly intact bilaterally. No focal neurological deficits. Moves all extremities spontaneously. Intact strength, ROM, and sensation to light touch of upper and lower extremities bilaterally. Skin: Diffuse areas of ecchymosis on upper forearms bilaterally. Musculoskeletal: No cyanosis or clubbing. Extremities: No edema. Psychiatric: Normal mood and affect. Results Labs 08/29/23 17:13 08/29/23 17:13 Labs: Laboratory Results - last 24 hr 08/29/23 17:13 MCV 90.0 MCH 31.8 MCHC 35.3 RDW 13.0 Plt Count 116 L MPV 8.7 L Immature Gran % (Auto) 0.4 Neut % (Auto) 82.6 H Lymph % (Auto) 8.0 L Jack % (Auto) 8.3 Eos % (Auto) 0.4 Baso % (Auto) 0.3 Lymph # (Auto) 0.7 L Jack # (Auto) 0.8 Eos # (Auto) 0.0 Baso # (Auto) 0.0 Abs Immat Gran (auto) 0.04 H Absolute Neuts (auto) 7.5 Absolute Nucleated RBC 0.000 Nucleated RBC % (auto) 0.0 PT 11.6 INR 1.0 APTT 31.0 Anion Gap 11 L Estim Creat Clear Calc 39.3 Estimated GFR 51 Random Glucose 114 Calcium 10.2 Total Bilirubin 0.8 Direct Bilirubin 0.3 AST 21 ALT 16 Alkaline Phosphatase 87 B-Natriuretic Peptide 60 Total Protein 6.9 Albumin 4.0 Lipase 23 COVID-19 ([facility]) Negative COVID-19 Clin Com See Note Imaging Radiologist's Impressions: Impressions Chest X-Ray 08/29/23 16:45 IMPRESSION: Left base atelectasis. Head CT 08/29/23 17:05 IMPRESSION: 1. There is no evidence of a recent intracranial hemorrhage. 2. No acute infarct. 3. Nonspecific unchanged white matter disease Assessment and Plan (1) Fall at home: Qualifiers: Encounter type: initial encounter Qualified Code(s): W19.XXXA - Unspecified fall, initial encounter; Y92.009 - Unspecified place in unspecified non-institutional (private) residence as the place of occurrence of the external cause Status: Acute (2) Unresponsive episode: Status: Acute Plan Pt is an 82-year-old male with a PMH significant for?CAD s/p CABG, severe aortic stenosis, PAD, HTN, and HLD who presents to the ED for evaluation of a mechanical fall with head strike with subsequent episode of unresponsiveness several hours later. Pt will be admitted to the hospital under observation on telemetry for monitoring and further management of possible seizure in the setting of mechanical fall with head strike. Episode of unresponsiveness in the setting of mechanical fall with headstrike Pt with mechanical fall at home with headstrike at 08:00, subsequently had a witnessed 10-minute episode of unresponsiveness at 15:00 CT negative for acute intracranial pathology; no significant electrolyte abnormality, EKG similar to previous, H&H stable Seizure versus TIA Will get EEG Neurology consult Monitor on telemetry HLD/CAD s/p CABG Continue statin, aspirin, ezetimibe Aortic stenosis Outpatient follow-up to schedule TAVR HTN Continue lisinopril, metoprolol GERD Continue famotidine Full Code Attending:?Dr. Wolf DVT Prophylaxis: Lovenox Patient will be admitted to the hospital under observation on telemetry for monitoring and further workup for possible seizure in the setting of mechanical fall at home with head strike. Time Spent With Patient Time: Total time managing care of this patient today ____ minutes. Quality Stroke Does the patient have a stroke diagnosis?: No VTE Prior VTE?: No VTE Risk Level:: Medical - moderate - high VTE Device Contraindication: Treatment Not Indicated VTE Drug Contraindication: N/A - Med Ordered
--- NOTE | 2023-08-29 18:57 | PHA.MEDREC ---
Pharmacy Consult ? Medication Reconciliation Pharmacy has completed the medication reconciliation. Patient confirmed medcations reports he takes all medications in the morning and afternoon, not medications at night. Norma Ring, YuanD
[2023-08-29] MEDS: Lactated Ringers 1,000 ML 100 ML IVCONT (19:48)
[2023-08-29] MEDS: Enoxaparin Sodium 40 MG/0.4 ML SYRINGE SUBCUT (19:49)
[2023-08-29 19:52] VITALS: BP 131/65; PULSE 98; RESP 16; TEMP 36.8; O2SAT 97
--- NOTE | 2023-08-29 19:55 | PC.NURSE ---
I assumed care of the pt at 1900. Pt is resting quietly in bed at this time, A&Ox4, GCS 15. Pt reports no pain or discomfort at this time. I placed a 20g IV in the right AC, fluids are running per JAN. Pt is on the potline monitor and pulse ox monitoring. Vital Signs Stable at this time. Pt is currently waiting for room assignment.
[2023-08-29 20:00] VITALS: BP 131/63; PULSE 109; RESP 18; TEMP 36.4; O2SAT 96
--- NOTE | 2023-08-29 20:08 | PC.NURSE ---
Attempted to call report at 20:08. US stated nurse is with a pt, I jacques texted Rachael RN to let me know when she is available.
[2023-08-29 23:53] VITALS: BP 92/62; PULSE 114; RESP 18; TEMP 37.1; O2SAT 96
[2023-08-30] VITALS (7 sets, daily range): BP systolic 98–158; BP diastolic 52–80; PULSE 78–110; RESP 14–20; TEMP 36.1–36.8; O2SAT 95–97; BMI 27.9
[2023-08-30 06:26] LABS: Anion Gap 11 (12-20); Blood Urea Nitrogen 23 mg/dL (9-16); Calcium 9.4 mg/dL (8.4-10.2); Carbon Dioxide 20 mmol/L (22-29); Chloride 103 mmol/L (96-108); Creatinine Clr Calc Pharmacy 45.9; Estimated Glomerular Filt Rate 56; Glucose Random 102 mg/dL (60-115); Potassium 4.2 mmol/L (3.3-5.1); Sodium 130 mmol/L (135-145)
[2023-08-30 06:52] LABS: Hematocrit 29.7 % (42.0-52.0); Hemoglobin 10.5 g/dl (14.0-18.0); Mean Corpuscular HGB Conc 35.4 g/dl (31.0-36.0); Mean Corpuscular Hemoglobin 31.9 pg (27.0-33.0); Mean Corpuscular Volume 90.3 fL (80.0-98.0); Mean Platelet Volume 10.6 fL (9.4-12.4); Platelet Count 134 X10*3/uL (160-400); Red Blood Count 3.29 X10*6/uL (4.60-5.80); Red Cell Distribution Width 12.9 % (11.0-16.0); White Blood Count 6.6 X10*3/uL (4.8-10.8)
[2023-08-30] MEDS: Famotidine 20 MG TABLET PO ×2 (09:13→13:52)
[2023-08-30] MEDS: Ascorbic Acid 500 MG TABLET PO (09:13)
[2023-08-30] MEDS: Aspirin Enteric Coated 81 MG TABLET.DR PO (09:13)
[2023-08-30] MEDS: Ezetimibe 10 MG TABLET PO (09:13)
[2023-08-30] MEDS: lisinopriL 20 MG TABLET PO (09:13)
[2023-08-30] MEDS: cilostazoL 100 MG TABLET PO ×2 (09:14→13:52)
[2023-08-30] MEDS: 0.9 % Sodium Chloride Flush 3 ML SYRINGE IVFLUSH ×3 (09:14→19:47)
[2023-08-30] MEDS: Atorvastatin Calcium 80 MG TABLET PO (09:14)
[2023-08-30] MEDS: Metoprolol Tartrate 50 MG TABLET PO ×2 (09:14→13:52)
--- NOTE | 2023-08-30 10:27 | P.CONCA_ITS ---
History of Present Illness History of Present Illness Date of Service: 08/30/23 Chief complaint: Mechanical fall w/headstrike, ?Absence seizure Narrative: This cardiology consultation regarding aortic stenosis and question of syncope. Discussed with daughter at the bedside. Patient follows up with Dr. Campos in the clinic. Last appointment was few months back. Per that note, he had not had any symptoms like exertional chest pain or shortness of breath or lightheadedness. Any case, because of echocardiographic findings, he was referred to Dr. Griggs at [facility] for TAVR consultation. The appointment was supposed to be later part of this month according to family. The current admission is because of a fall. Apparently, he was trying to walk up steps to enter his house and at that time, he missed a step and fell backwards. Apparently hit his head. He did not seek any medical attention at that time. However, few hours later he was with his family. He was actually doing anything but it seems that patient could not communicate for few minutes and was almost unresponsive. He could not handle his secretions extra. He could not blink. Report of few seconds of twitching/manic convulsions but no tonic-clonic type activity. Patient denies any complaints like chest pain or shortness of breath. Following all of this, he was been admitted for further care. Currently, he states he feels absolutely fine. No cardiac symptoms whatsoever. Review of Systems 2 Review of Systems: Yes all other systems are reviewed and are negative Constitutional: Constitutional: Reports as per HPI and Reports no additional constitutional complaints Eyes: Eyes: Reports as per HPI and Denies no additional eye complaints ENT: Denies system reviewed and no additional complaints, except as documented and Reports as per HPI Cardiovascular: Cardiovascular: Reports as per HPI, Reports no additional cardiovascular complaints, Denies acrocyanosis, Denies cool extremities, Denies chest pain, Denies leg edema, Denies lightheadedness, Denies palpitations and Denies dyspnea Respiratory: Respiratory: Reports as per HPI, Denies no additional respiratory complaints and Denies dyspnea Gastrointestinal: Gastrointestinal: Reports as per HPI and Denies no additional gastrointestinal complaints Genitourinary: Genitourinary: Reports no additional male genitourinary complaints and Reports as per HPI Musculoskeletal: Musculoskeletal: Reports no additional musculoskeletal complaints and Reports as per HPI Integumentary/Breasts: Skin/Breast: Reports system reviewed and no additional complaints, except as docu Neurologic: Reports system reviewed and no additional complaints, except as documented and Reports as per HPI Psychiatric: Psychiatric: Reports no additional psychiatric complaints and Reports as per HPI Endocrine: Endocrine: Reports no additional endocrine complaints, Reports as per HPI and Denies palpitations Hematologic/Lymphatic: Hematologic/Lymphatic: Reports no additional hematologic/lymphatic complaints and Reports as per HPI Allergic/Immunologic: Allergic/Immunologic: Reports no additional allergic/immunologic complaints and Reports as per HPI COUNTS INCLUDE 234 BEDS AT THE [facility] Past Medical History Medical History Aortic stenosis CAD (coronary artery disease) Hyperlipidemia HTN (hypertension) Aortic stenosis Peripheral vascular disease Bilateral carotid artery disease Postoperative atrial fibrillation Family History Family History Father CVD (cardiovascular disease) Mother No problems noted. Surgical History Surgical History Hx of coronary artery bypass graft Social History Social History Household Members: None Housing: Condominium Do you presently have visiting nurse or other home services: No Patient Tobacco Use Status: Never used Tobacco Smoked in Last 30 Days: No Use of substances other than those prescribed or required for medical reasons: No Currently Displaying Signs/Symptoms of Drug Intoxication Withdrawal: No Have you been hit, kicked, punched, or otherwise hurt by someone within the past year? If so, by whom?: No Do you feel safe in your current relationship?: No Current Relationship Is there a partner from a previous relationship who is making you feel unsafe now?: No Are you made to feel afraid or neglected: No Spiritual Healthcare Practices: [facility] Practices: none specified Advance Directives: No Advance Directives Information Provided: No Do you have thoughts of harming others: None Do you have a plan to hurt others: No Plan Recently lost weight without trying: No Eating poorly because of decreased appetite: No Nutrition Risks: No Nutritional Risk Poor oral hygiene: No Meds Allergies Allergy/AdvReac Type Severity Reaction Status Date / Time pollen extracts [POLLEN] Allergy Mild RUNNY NOSE Verified 08/29/23 16:30 Active Medications: Current Medications Acetaminophen (Acetaminophen 325 Mg Tablet) 650 mg PO Q6H PRN PRN Reason: Pain, Mild (Pain Scale 1-3) Ascorbic Acid (Ascorbic Acid 500 Mg Tablet) 500 mg PO DAILY [facility] Last Admin: 08/30/23 09:13 Dose: 500 mg Aspirin (Aspirin Enteric Coated 81 Mg Tablet.Dr) 81 mg PO WESA@0900 [facility] Last Admin: 08/30/23 09:13 Dose: 81 mg Atorvastatin Calcium (Atorvastatin Calcium 80 Mg Tablet) 80 mg PO DAILY [facility] Last Admin: 08/30/23 09:14 Dose: 80 mg Cilostazol (Cilostazol 100 Mg Tablet) 100 mg PO BID@0900,1400 [facility] Last Admin: 08/30/23 09:14 Dose: 100 mg Docusate Sodium (Docusate Sodium 100 Mg Capsule) 100 mg PO DAILY PRN PRN Reason: Constipation Ezetimibe (Ezetimibe 10 Mg Tablet) 10 mg PO DAILY [facility] Last Admin: 08/30/23 09:13 Dose: 10 mg Enoxaparin Sodium (Enoxaparin Sodium 40 Mg/0.4 Ml Syringe) 40 mg SUBCUT Q24H [facility] Last Admin: 08/29/23 19:49 Dose: 40 mg Famotidine (Famotidine 20 Mg Tablet) 20 mg PO BID@0900,1400 [facility] Last Admin: 08/30/23 09:13 Dose: 20 mg Ibuprofen (Ibuprofen 800 Mg Tablet) 800 mg PO BID PRN PRN Reason: Pain, Mild (Pain Scale 1-3) Lisinopril (Lisinopril 20 Mg Tablet) 20 mg PO DAILY [facility]; Protocol Last Admin: 08/30/23 09:13 Dose: 20 mg Metoprolol Tartrate (Metoprolol Tartrate 50 Mg Tablet) 50 mg PO BID@0900,1400 [facility]; Protocol Last Admin: 08/30/23 09:14 Dose: 50 mg Ondansetron HCl (Ondansetron Hcl 4 Mg/2 Ml Vial) 4 mg IVPUSH Q8H PRN PRN Reason: Nausea and Vomiting Sodium Chloride (0.9 % Sodium Chloride Flush 3 Ml Syringe) 3 ml IVFLUSH QSHIFT [facility] Last Admin: 08/30/23 09:14 Dose: 3 ml Home Medications Medication Instructions Recorded Confirmed Last Taken Type atorvastatin 80 mg tablet 80 mg PO DAILY 11/05/20 08/29/23 08/29/23 History cilostazol 100 mg tablet 100 mg PO BID@0900,1400 11/05/20 08/29/23 08/29/23 History famotidine 20 mg tablet 20 mg PO BID@0900,1400 gi upset 11/05/20 08/29/23 08/29/23 History ibuprofen 800 mg tablet 800 mg PO BID PRN Pain 11/05/20 08/29/23 08/29/23 History lisinopril 20 mg tablet 20 mg PO DAILY 11/05/20 08/29/23 08/29/23 History metoprolol tartrate 50 mg tablet 50 mg PO BID@0900,1400 11/05/20 08/29/23 08/29/23 History ascorbate calcium (vitamin C) 500 500 mg PO DAILY 05/10/21 08/29/23 08/29/23 History mg tablet aspirin 81 mg tablet,delayed 81 mg PO WESA@0900 11/03/21 08/29/23 08/29/23 History release (Adult Low Dose Aspirin) Physical Exam 2 Vital Signs: Vital Signs: Last Vital Signs Temp 98.0 F 08/30/23 08:00 Pulse 110 H 08/30/23 08:00 Resp 20 08/30/23 08:00 BP 158/80 H 08/30/23 08:00 Pulse Ox 96 08/30/23 08:00 O2 Del Method Room Air 08/30/23 08:00 BMI result Body Mass Index 27.9 Const: General: comfortable and no acute distress O rientation/consciousness: patient oriented x3 HEENT: Other: Unremarkable Head: Yes normal to inspection Neck: Neck: Yes normal visual inspection Chest: Chest palpation & inspection: normal inspection of the chest Resp: Auscultation: clear to auscultation bilaterally Cardio: Palpation: normal PMI Heart sounds: S1 normal heart sound present, S2 normal heart sound present, no gallops, Murmur heart sound present systolic III/ and at the right sternal border and no rubs GI: Palpation (GI): Soft to palpation Back/Spine/Pelvis: Other: unremarkable Skin: General skin exam: no rashes or lesions noted Neuro: General: patient oriented x3 Extrem: General: Yes normal to inspection Psych: Mental Status: mental status grossly normal Objective Labs and Meds 08/30/23 05:48 08/30/23 05:48 Lab results: Laboratory Results - last 24 hr 08/29/23 08/30/23 17:13 05:48 WBC 9.1 6.6 RBC 3.71 L 3.29 L Hgb 11.8 L 10.5 L Hct 33.4 L 29.7 L MCV 90.0 90.3 MCH 31.8 31.9 MCHC 35.3 35.4 RDW 13.0 12.9 Plt Count 116 L 134 L MPV 8.7 L 10.6 Immature Gran % (Auto) 0.4 Neut % (Auto) 82.6 H Lymph % (Auto) 8.0 L [place] % (Auto) 8.3 Eos % (Auto) 0.4 Baso % (Auto) 0.3 Lymph # (Auto) 0.7 L [place] # (Auto) 0.8 Eos # (Auto) 0.0 Baso # (Auto) 0.0 Abs Immat Gran (auto) 0.04 H Absolute Neuts (auto) 7.5 Absolute Nucleated RBC 0.000 0.000 Nucleated RBC % (auto) 0.0 0.0 PT 11.6 INR 1.0 APTT 31.0 Sodium 131 L 130 L Potassium 4.1 4.2 Chloride 99 103 Carbon Dioxide 25 20 L Anion Gap 11 L 11 L BUN 20 H 23 H Creatinine 1.33 1.24 Estim Creat Clear Calc 39.3 45.9 Estimated GFR 51 56 Random Glucose 114 102 Calcium 10.2 9.4 D Total Bilirubin 0.8 Direct Bilirubin 0.3 AST 21 ALT 16 Alkaline Phosphatase 87 Troponin I High Sens 3.9 B-Natriuretic Peptide 60 Total Protein 6.9 Albumin 4.0 Lipase 23 COVID-19 ([facility]) Negative COVID-19 Clin Com See Note ECG Interpretation: EKG with sinus rhythm at 86/Min; left ventricular hypertrophy type pattern and nonspecific ST-T changes. Normal GA and corrected QT. Imaging Radiologist's impression: Impressions Chest X-Ray 08/29/23 16:45 IMPRESSION: Left base atelectasis. Head CT 08/29/23 17:05 IMPRESSION: 1. There is no evidence of a recent intracranial hemorrhage. 2. No acute infarct. 3. Nonspecific unchanged white matter disease Assessment and Plan (1) Unresponsive episode: Status: Acute (2) Aortic stenosis: Qualifiers: Cardiac valve disease etiology: nonrheumatic Qualified Code(s): I35.0 - Nonrheumatic aortic (valve) stenosis Status: Acute Plan EKG shows normal sinus rhythm. On telemetry, he has sinus tachycardia. Troponin within normal limits. Cardiac BNP is within normal limits. Echocardiogram with LVEF of 60-65%. Mean gradient across aortic valve of 40 mm Hg with a peak of 69 mm Hg. Aortic valve area of 0.89 sq cm. No aortic valve regurgitation. The unresponsive event itself is nonexertional and hence likely not from the aortic stenosis. Also the initial fall was mechanical in nature by losing balance and again not exertional syncope type presentation. Overall, doubt aortic valve stenosis to be the primary etiology for the current presentation. Discussed with daughter at the bedside. Await neuro input as well. Then we can decide further care. Discussed with , hospitalist service. Time Spent With Patient Time: Total time managing care of this patient today ____ minutes. Procedures Date of Service Date of Service: 08/30/23
--- NOTE | 2023-08-30 11:26 | MHC.CM.PN ---
[facility]ABETH DELIVERED PT LIVES ALONE. INDEPENDENT AT BASELINE. +COVID [facility] NO HCP BUT WILLING TO COMPLETE ONE. PCP DR. IRIZARRY. DP: HOME, NO SERVICES ANTICIPATED. FAMILY WILL TRANSPORT HOME. CM WILL CONTINUE TO FOLLOW FOR ANY CHANGE IN DC NEEDS/PLAN.
--- NOTE | 2023-08-30 11:45 | HO.PM.IMPN ---
Subjective Subjective Date of Service: 08/30/23 Interval History: Sitting comfortably eating breakfast denies headache, no dizziness, denies chest pain, no palpitations, no nausea, no vomiting, no recent bout diarrhea, denies urinary symptoms of urgency, no frequency No recent weight loss. Review of Systems All other system reviewed and negative Physical Exam Vital Signs: Vital Signs: Last Vital Signs Temp 97.5 F 08/30/23 11:02 Pulse 91 08/30/23 11:02 Resp 20 08/30/23 11:02 BP 122/71 08/30/23 11:02 Pulse Ox 97 08/30/23 11:02 O2 Del Method Room Air 08/30/23 11:02 BMI result Body Mass Index 27.9 Const: Other: General awake alert x3, sitting comfortably, in no acute distress. Neck no JVD. CVS regular rate rhythm, Respiratory lungs clear to auscultation, no respiratory distress, no wheeze, no rhonchi. Gastrointestinal abdomen soft, non tender, bowel sounds audible Extremities no edema. Neuro nonfocal ,moving all 4 extremity speech clear. Skin ecchymosis right upper extremity, no scalp hematoma noted. Left elbow dressing in place no drainage noted Objective Data Active Medications Acetaminophen (Acetaminophen 325 Mg Tablet) 650 mg PO Q6H PRN PRN Reason: Pain, Mild (Pain Scale 1-3) Ascorbic Acid (Ascorbic Acid 500 Mg Tablet) 500 mg PO DAILY [facility] Last Admin: 08/30/23 09:13 Dose: 500 mg Documented By: ASHOK Aspirin (Aspirin Enteric Coated 81 Mg Tablet.) 81 mg PO WESA@0900 [facility] Last Admin: 08/30/23 09:13 Dose: 81 mg Documented By: ASHOK Atorvastatin Calcium (Atorvastatin Calcium 80 Mg Tablet) 80 mg PO DAILY [facility] Last Admin: 08/30/23 09:14 Dose: 80 mg Documented By: ASHOK Cilostazol (Cilostazol 100 Mg Tablet) 100 mg PO BID@0900,1400 [facility] Last Admin: 08/30/23 09:14 Dose: 100 mg Documented By: ASHOK Docusate Sodium (Docusate Sodium 100 Mg Capsule) 100 mg PO DAILY PRN PRN Reason: Constipation Ezetimibe (Ezetimibe 10 Mg Tablet) 10 mg PO DAILY [facility] Last Admin: 08/30/23 09:13 Dose: 10 mg Documented By: ASHOK Enoxaparin Sodium (Enoxaparin Sodium 40 Mg/0.4 Ml Syringe) 40 mg SUBCUT Q24H [facility] Last Admin: 08/29/23 19:49 Dose: 40 mg Documented By: AYO Famotidine (Famotidine 20 Mg Tablet) 20 mg PO BID@0900,1400 [facility] Last Admin: 08/30/23 09:13 Dose: 20 mg Documented By: ASHOK Ibuprofen (Ibuprofen 800 Mg Tablet) 800 mg PO BID PRN PRN Reason: Pain, Mild (Pain Scale 1-3) Lisinopril (Lisinopril 20 Mg Tablet) 20 mg PO DAILY [facility]; Protocol Last Admin: 08/30/23 09:13 Dose: 20 mg Documented By: ASHOK Metoprolol Tartrate (Metoprolol Tartrate 50 Mg Tablet) 50 mg PO BID@0900,1400 [facility]; Protocol Last Admin: 08/30/23 09:14 Dose: 50 mg Documented By: ASHOK Ondansetron HCl (Ondansetron Hcl 4 Mg/2 Ml Vial) 4 mg IVPUSH Q8H PRN PRN Reason: Nausea and Vomiting Sodium Chloride (0.9 % Sodium Chloride Flush 3 Ml Syringe) 3 ml IVFLUSH QSHIFT [facility] Last Admin: 08/30/23 09:14 Dose: 3 ml Documented By: ASHOK Labs 08/30/23 05:48 08/30/23 05:48 Labs: Laboratory Results - last 24 hr 08/29/23 08/30/23 17:13 05:48 MCV 90.0 90.3 MCH 31.8 31.9 MCHC 35.3 35.4 RDW 13.0 12.9 Plt Count 116 L 134 L MPV 8.7 L 10.6 Immature Gran % (Auto) 0.4 Neut % (Auto) 82.6 H Lymph % (Auto) 8.0 L [place] % (Auto) 8.3 Eos % (Auto) 0.4 Baso % (Auto) 0.3 Lymph # (Auto) 0.7 L [place] # (Auto) 0.8 Eos # (Auto) 0.0 Baso # (Auto) 0.0 Abs Immat Gran (auto) 0.04 H Absolute Neuts (auto) 7.5 Absolute Nucleated RBC 0.000 0.000 Nucleated RBC % (auto) 0.0 0.0 PT 11.6 INR 1.0 APTT 31.0 Anion Gap 11 L 11 L Estim Creat Clear Calc 39.3 45.9 Estimated GFR 51 56 Random Glucose 114 102 Calcium 10.2 9.4 D Total Bilirubin 0.8 Direct Bilirubin 0.3 AST 21 ALT 16 Alkaline Phosphatase 87 B-Natriuretic Peptide 60 Total Protein 6.9 Albumin 4.0 Lipase 23 COVID-19 ([facility]) Negative COVID-19 Clin Com See Note Assessment and Plan (1) Carotid stenosis, bilateral: Status: Acute (2) Aortic stenosis: Status: Acute (3) Hyperlipidemia: Status: Acute (4) HTN (hypertension): Status: Acute (5) Unresponsive episode: Status: Acute Plan 82-year-old male with a PMH significant for?CAD s/p CABG, severe aortic stenosis, PAD, HTN, and HLD who presents to the ED for evaluation of a mechanical fall with head strike with subsequent episode of unresponsiveness several hours later. Pt will be admitted to the hospital under observation on telemetry for monitoring and further management of possible seizure in the setting of mechanical fall with head strike. Syncope: Episode of unresponsiveness in the setting of mechanical fall with headstrike Pt .with mechanical fall at home with headstrike at 08:00, subsequently had a witnessed 10-minute episode of unresponsiveness at 15:00 CT negative for acute intracranial pathology, showed possible scalp hematoma, no significant electrolyte abnormality, EKG similar to previous, H&H stable Normal blood sugars, no leukocytosis, stable chest x-ray, and blood pressure, ddx Seizure versus severe aortic stenosis/hx of left carotid artery stenosis Consult cardiology, case discussed with Dr. Crouch since event happened while sitting, he feels less likely aortic stenosis causing syncope Check orthostatic blood pressures, Check EEG, obtain carotid ultrasound Await Neurology input, rule out arrhythmia currently sinus tachycardia continue metoprolol. Monitor on telemetry HLD/CAD s/p CABG Continue statin, aspirin, ezetimibe Aortic stenosis Seen by Cardiology as scheduled Outpatient follow-up to schedule TAVR HTN stable blood pressure, Continue lisinopril, metoprolol GERD Continue famotidine Full Code , DVT Prophylaxis: Lovenox Patient need continued inpatient hospitalization for episode of syncope requiring tele monitoring and further workup to rule out seizure disorder and expert opinion Time Spent With Patient Time: Total time managing care of this patient today ____ minutes. Quality Stroke Does the patient have a stroke diagnosis?: No VTE Prior VTE?: No VTE Risk Level:: Medical - moderate - high VTE Device Contraindication: Treatment Not Indicated VTE Drug Contraindication: N/A - Med Ordered
--- NOTE | 2023-08-30 12:01 | P.CNNE_ITS ---
History of Present Illness Data of Consult Service Date: 08/30/23 Primary Care Provider: Unknown Physician HPI Reason for consult: Seizure 82-year-old male with a PMH significant for?CAD s/p CABG, severe aortic stenosis, PAD, HTN, and HLD who presents to the ED for evaluation of a mechanical fall followed few hours after by a seizure. Apparently he stumbled upon something or missed a step and fell down. He said that he did not pass out but did hit his head. There was no seizure at that time. Few hours later he was at his granddaughter's place and she was attending him and checked his blood pressure is. His blood pressure at 1 point was 140 systolic and other time 01:06 over 60. At 1 point he became unresponsive stared in space and had some minor seizure-like or convulsion type activity. She was unable to wake him up or talk to him for at least few minutes, she stated maybe 10 minutes. After that he slowly recovered. He had no recollection of what had happened. Something like this has never happened before. Review of Systems 2 Review of Systems: No recent cold or flu-like illness or exposure to any new medicine [facility] Past Medical History Medical History Aortic stenosis CAD (coronary artery disease) Hyperlipidemia HTN (hypertension) Aortic stenosis Peripheral vascular disease Bilateral carotid artery disease Postoperative atrial fibrillation Family History Family History Father CVD (cardiovascular disease) Mother No problems noted. Surgical History Surgical History Hx of coronary artery bypass graft Social History Social History Household Members: None Housing: Condominium Do you presently have visiting nurse or other home services: No Patient Tobacco Use Status: Never used Tobacco Smoked in Last 30 Days: No Use of substances other than those prescribed or required for medical reasons: No Currently Displaying Signs/Symptoms of Drug Intoxication Withdrawal: No Have you been hit, kicked, punched, or otherwise hurt by someone within the past year? If so, by whom?: No Do you feel safe in your current relationship?: No Current Relationship Is there a partner from a previous relationship who is making you feel unsafe now?: No Are you made to feel afraid or neglected: No Spiritual Healthcare Practices: hindu [facility] Healthcare Practices: none specified Advance Directives: No Advance Directives Information Provided: No Do you have thoughts of harming others: None Do you have a plan to hurt others: No Plan Recently lost weight without trying: No Eating poorly because of decreased appetite: No Nutrition Risks: No Nutritional Risk Poor oral hygiene: No service: No Meds Allergies Allergy/AdvReac Type Severity Reaction Status Date / Time pollen extracts [POLLEN] Allergy Mild RUNNY NOSE Verified 08/29/23 16:30 Active Medications: Current Medications Acetaminophen (Acetaminophen 325 Mg Tablet) 650 mg PO Q6H PRN PRN Reason: Pain, Mild (Pain Scale 1-3) Ascorbic Acid (Ascorbic Acid 500 Mg Tablet) 500 mg PO DAILY [facility] Last Admin: 08/30/23 09:13 Dose: 500 mg Aspirin (Aspirin Enteric Coated 81 Mg Tablet.Dr) 81 mg PO WESA@0900 [facility] Last Admin: 08/30/23 09:13 Dose: 81 mg Atorvastatin Calcium (Atorvastatin Calcium 80 Mg Tablet) 80 mg PO DAILY [facility] Last Admin: 08/30/23 09:14 Dose: 80 mg Cilostazol (Cilostazol 100 Mg Tablet) 100 mg PO BID@0900,1400 [facility] Last Admin: 08/30/23 09:14 Dose: 100 mg Docusate Sodium (Docusate Sodium 100 Mg Capsule) 100 mg PO DAILY PRN PRN Reason: Constipation Ezetimibe (Ezetimibe 10 Mg Tablet) 10 mg PO DAILY [facility] Last Admin: 08/30/23 09:13 Dose: 10 mg Enoxaparin Sodium (Enoxaparin Sodium 40 Mg/0.4 Ml Syringe) 40 mg SUBCUT Q24H [facility] Last Admin: 08/29/23 19:49 Dose: 40 mg Famotidine (Famotidine 20 Mg Tablet) 20 mg PO BID@0900,1400 [facility] Last Admin: 08/30/23 09:13 Dose: 20 mg Ibuprofen (Ibuprofen 800 Mg Tablet) 800 mg PO BID PRN PRN Reason: Pain, Mild (Pain Scale 1-3) Lisinopril (Lisinopril 20 Mg Tablet) 20 mg PO DAILY [facility]; Protocol Last Admin: 08/30/23 09:13 Dose: 20 mg Metoprolol Tartrate (Metoprolol Tartrate 50 Mg Tablet) 50 mg PO BID@0900,1400 [facility]; Protocol Last Admin: 08/30/23 09:14 Dose: 50 mg Ondansetron HCl (Ondansetron Hcl 4 Mg/2 Ml Vial) 4 mg IVPUSH Q8H PRN PRN Reason: Nausea and Vomiting Sodium Chloride (0.9 % Sodium Chloride Flush 3 Ml Syringe) 3 ml IVFLUSH QSHIFT [facility] Last Admin: 08/30/23 09:14 Dose: 3 ml Home Medications Medication Instructions Recorded Confirmed Last Taken Type atorvastatin 80 mg tablet 80 mg PO DAILY 11/05/20 08/29/23 08/29/23 History cilostazol 100 mg tablet 100 mg PO BID@0900,1400 11/05/20 08/29/23 08/29/23 History famotidine 20 mg tablet 20 mg PO BID@0900,1400 gi upset 11/05/20 08/29/23 08/29/23 History ibuprofen 800 mg tablet 800 mg PO BID PRN Pain 11/05/20 08/29/23 08/29/23 History lisinopril 20 mg tablet 20 mg PO DAILY 11/05/20 08/29/23 08/29/23 History metoprolol tartrate 50 mg tablet 50 mg PO BID@0900,1400 11/05/20 08/29/23 08/29/23 History ascorbate calcium (vitamin C) 500 500 mg PO DAILY 05/10/21 08/29/23 08/29/23 History mg tablet aspirin 81 mg tablet,delayed 81 mg PO WESA@0900 11/03/21 08/29/23 08/29/23 History release (Adult Low Dose Aspirin) Physical Exam 2 Vital Signs: Vital Signs: Last Vital Signs Temp 97.5 F 08/30/23 11:02 Pulse 91 08/30/23 11:02 Resp 20 08/30/23 11:02 BP 122/71 08/30/23 11:02 Pulse Ox 97 08/30/23 11:02 O2 Del Method Room Air 08/30/23 11:02 BMI result Body Mass Index 27.9 Neuro: Other: He is alert and awake with normal spontaneity of speech fluency comprehension and affect. He has not in any distress. Face is symmetrical. There is no obvious focal weakness. Visual tejeda are intact. Results Labs 08/30/23 05:48 08/30/23 05:48 Labs: Short CBC 08/29/23 08/30/23 Range/Units 17:13 05:48 WBC 9.1 6.6 (4.8-10.8) X10*3/uL Hgb 11.8 L 10.5 L (14.0-18.0) g/dl Hct 33.4 L 29.7 L (42.0-52.0) % Plt Count 116 L 134 L (160-400) X10*3/uL BMP 08/29/23 08/30/23 17:13 05:48 Sodium 131 L 130 L Potassium 4.1 4.2 Chloride 99 103 Carbon Dioxide 25 20 L BUN 20 H 23 H Creatinine 1.33 1.24 Calcium 10.2 9.4 D Liver Function 08/29/23 Range/Units 17:13 Total Bilirubin 0.8 (0.0-1.0) mg/dL Direct Bilirubin 0.3 (0.0-0.5) mg/dL AST 21 (5-37) U/L ALT 16 (0-40) U/L Alkaline Phosphatase 87 (39-117) U/L Albumin 4.0 (3.5-5.0) g/dL 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 Assessment and Plan (1) Seizure: Status: Acute 82 years old man who sustained a relatively benign head injury followed after few hours by an episode suggestive of complex partial seizure. He is advised to be careful and not drive at this time. I recommend obtaining an EEG and starting him on levetiracetam 250 mg twice a day per Time Spent With Patient Time: Total time managing care of this patient today ____ minutes. Procedures Date of Service Date of Service: 08/30/23
[2023-08-30] MEDS: Enoxaparin Sodium 40 MG/0.4 ML SYRINGE SUBCUT (19:46)
[2023-08-30] MEDS: levETIRAcetam 250 MG TABLET PO (20:27)
[2023-08-31] VITALS (7 sets, daily range): BP systolic 90–126; BP diastolic 53–69; PULSE 82–123; RESP 18–20; TEMP 36.2–37.1; O2SAT 95–98
[2023-08-31] MEDS: Ezetimibe 10 MG TABLET PO (07:29)
[2023-08-31] MEDS: Ascorbic Acid 500 MG TABLET PO (07:31)
[2023-08-31] MEDS: Famotidine 20 MG TABLET PO ×2 (07:31→13:57)
[2023-08-31] MEDS: levETIRAcetam 250 MG TABLET PO (07:32)
[2023-08-31] MEDS: Metoprolol Tartrate 50 MG TABLET PO ×2 (07:32→13:57)
[2023-08-31] MEDS: lisinopriL 20 MG TABLET PO (07:34)
[2023-08-31] MEDS: Atorvastatin Calcium 80 MG TABLET PO (07:34)
[2023-08-31] MEDS: cilostazoL 100 MG TABLET PO ×2 (07:34→14:02)
[2023-08-31] MEDS: 0.9 % Sodium Chloride Flush 3 ML SYRINGE IVFLUSH (07:36)
--- NOTE | 2023-08-31 10:20 | PM.PNCARD ---
Subjective Subjective Date of Service: 08/31/23 Interval history: He states he is doing fine. Absolutely no cardiac complaints. Review of Systems Review of Systems Yes all other systems are reviewed and are negative Constitutional: Reports as per HPI and Reports no additional constitutional complaints Eyes: Reports as per HPI and Denies no additional eye complaints Denies system reviewed and no additional complaints, except as documented and Reports as per HPI Cardiovascular: Reports as per HPI, Reports no additional cardiovascular complaints, Denies acrocyanosis, Denies cool extremities, Denies chest pain, Denies leg edema, Denies lightheadedness, Denies palpitations and Denies dyspnea Respiratory: Reports as per HPI, Denies no additional respiratory complaints and Denies dyspnea Gastrointestinal: Reports as per HPI and Denies no additional gastrointestinal complaints Genitourinary: Reports no additional male genitourinary complaints and Reports as per HPI Musculoskeletal: Reports no additional musculoskeletal complaints and Reports as per HPI Skin/Breast: Reports system reviewed and no additional complaints, except as docu Reports system reviewed and no additional complaints, except as documented and Reports as per HPI Psychiatric: Reports no additional psychiatric complaints and Reports as per HPI Endocrine: Reports no additional endocrine complaints, Reports as per HPI and Denies palpitations Hematologic/Lymphatic: Reports no additional hematologic/lymphatic complaints and Reports as per HPI Allergic/Immunologic: Reports no additional allergic/immunologic complaints and Reports as per HPI Physical Exam Vital Signs: Last Vital Signs Temp 98.8 F 08/31/23 07:15 Pulse 123 H 08/31/23 07:46 Resp 20 08/31/23 07:15 BP 114/58 L 08/31/23 07:46 Pulse Ox 97 08/31/23 07:15 O2 Del Method Room Air 08/31/23 07:15 BMI result Body Mass Index 27.9 Const General: comfortable and no acute distress Orientation/consciousness: patient oriented x3 HEENT Other: Unremarkable Head: Yes normal to inspection Neck Neck: Yes normal visual inspection Chest Chest palpation & inspection: normal inspection of the chest Resp Auscultation: clear to auscultation bilaterally Cardio Palpation: normal PMI Heart sounds: S1 normal heart sound present, S2 normal heart sound present, no gallops, Murmur heart sound present systolic III/ and at the right sternal border and no rubs GI Palpation (GI): Soft to palpation Back/Spine/Pelvis Other: unremarkable Skin General skin exam: no rashes or lesions noted Neuro General: patient oriented x3 Extrem General: Yes normal to inspection Psych Mental Status: mental status grossly normal Objective Labs and Meds 08/30/23 05:48 08/30/23 05:48 Imaging Radiologist's impression: Impressions Carotid Doppler Study 08/30/23 13:30 IMPRESSION: 1. RIGHT: Minimal, non-hemodynamically significant stenosis of the proximal right internal carotid artery corresponding to a 0-49% stenosis by velocity criteria. 2. LEFT: Moderate, hemodynamically significant stenosis of the proximal left internal carotid artery corresponding to a 50-79% stenosis by velocity criteria. 3. There is no change in the category severity of disease when compared to the previous study dated 12/13/2022. Progress Note: A&P Assessment and plan (1) Unresponsive episode: Status: Acute (2) Aortic stenosis: Status: Acute Plan EKG shows normal sinus rhythm. Telemetry also shows normal sinus rhythm. Troponin within normal limits. Cardiac BNP is within normal limits. Echocardiogram with LVEF of 60-65%. Mean gradient across aortic valve of 40 mm Hg with a peak of 69 mm Hg. Aortic valve area of 0.89 sq cm. No aortic valve regurgitation. Based on presentation, highly unlikely that the events are related to aortic stenosis. Initial fall is mechanical and the 2nd unresponsive went is likely related to the initial fall/concussion. Neurology notes reviewed. He does not need any acute cardiac care. He already has an appointment to discussed TAVR and that is coming up in a couple of weeks. May keep that appointment. Discharge planning. Discussed with , hospitalist service. Time Spent With Patient Time: Total time managing care of this patient today 45 minutes. This includes time spent in review of chart, laboratory data, imaging studies, review of telemetry, counseling patient, discussion with hospitalist, RN, documentation, coordination of care. Progress Note: Quality Stroke Does the patient have a stroke diagnosis?: No Procedures Date of Service Date of Service: 08/31/23
--- NOTE | 2023-08-31 14:57 | PM.DS ---
DS: Providers Provider Date of Service: 08/31/23 Date of admission: 08/29/23 19:10 Primary care physician: Unknown Physician Consults: 08/29/23 19:22 Consult to Neurology Routine Consulting Provider: [facility] Reason for consultation: [facility] fall w/headstrike, then 10-minute seizure-like episode hours later 08/30/23 07:41 Consult to Cardiology Routine Consulting Provider: Corby Crouch Reason for consultation: syncope / severe Has provider been notified: No DS: Diagnosis Discharge Diagnosis (1) Unresponsive episode: Status: Acute (2) Aortic stenosis: Status: Acute DS: Summary Hospital Course Hospital Course: History of presenting illness: Date of Service: 08/29/23 Attending physician on admission: [facility] Chief Complaint: Fall, unresponsiveness Pt is an 82-year-old male with a PMH significant for?CAD s/p CABG, severe aortic stenosis, PAD, HTN, and HLD who presents to the ED for evaluation of a mechanical fall with head strike with subsequent episode of unresponsiveness several hours later. Patient states that earlier today was walking up his outside steps to enter his house when he ?was not pain paying attention? and missed the top step, falling backwards onto the sidewalk. Patient hit the back of his head, his lower back, and his elbow on the concrete denies LOC. Did experience slight headache and a ?bump? on the back of his head and his back which he said soon went away. Had some lower back pain and left elbow pain. Denies lightheadedness or dizziness preceding fall. Pt did not seek medical evaluation and reports the next few hours were uneventful. At 14:00 patient and visited his granddaughter who is a nurse at [employer]. She bandaged and wrapped his left elbow and took his vitals. She reports BP was initially elevated but subsequently came back to baseline the patient sat and talked. Patient's daughter also stopped by to visit, and patient's family reports he was communicative and seemed at his baseline for 1 hour until around 15:00 when he suddenly became unresponsive, not talking or responding to questions. He could not hold up his head or handle his secretions appear. Family reports he could track them with his eyes but did not blink. They also report a few seconds of twitching/minor convulsions, but no tonic-clonic type activity. Episode lasted approximately 10 minutes and then patient slowly came to and returned to baseline within a few minutes and he was able to walk himself without assistance to the ambulance. Patient states the only prodrome was that his vision became quite ?foggy?. Patient does not have any sense of lost time. Denies numbness or tingling in extremities. No extremity weakness. Denies chest pain/pressure, palpitations. Shortness of breath. Denies fever, chills, nausea, vomiting, abdominal pain. No loss of bladder or bowel function. Patient denies any recent history of illness/infection. In the ED patient was afebrile but slightly hypertensive up to 141/79. Labs were significant for stable H&H of 11.8/33.4, sodium 131, otherwise unremarkable. CXR showed left base atelectasis. CT?of head showed no evidence of recent intracranial hemorrhage or acute infarct. Did show nonspecific unchanged white matter disease. EKG demonstrated normal sinus rhythm with nonspecific ST and T-wave abnormalities, similar to previous. Pt will be admitted to the hospital under observation on telemetry for monitoring and further management of possible seizure in the setting of mechanical fall with head strike. Hospital course: 82-year-old male with a PMH significant for?CAD s/p CABG, severe aortic stenosis, PAD, HTN, and HLD who presents to the ED for evaluation of a mechanical fall with head strike with subsequent episode of unresponsiveness several hours later, patient admitted to hospital with diagnosis of syncope, possible related to seizure in the setting of mechanical fall with head strike, CT head negative for acute intracranial pathology common showed possible scalp hematoma EKG showed no acute abnormality patient had normal blood sugars, stable chest x-ray patient seen by double cutter Dr. Crouch since event happened while sitting it was felt this episode was not related to aortic stenosis, patient had an EEG that this Mildly abnormal suggestive of underlying tendency for partial seizure, patient seen by Dr. Gonzalez he recommended Keppra 250 mg b.i.d., carotid ultrasound unchanged from prior study, patient noted to have soft blood pressures therefore lisinopril discontinued patient treated with 500 mL of IV fluid blood pressure now is stable patient is be a lighting with no lightheadedness or dizziness therefore being discharged home with recommendations to avoid driving, operating machinery or taking tub bath he is recommended to follow up with Cardiology for his severe aortic stenosis, as well as with Neurology for new diagnosis of seizure. In regard to hyperlipidemia, coronary artery disease s/p CABG recommend to continue statin, aspirin and Zetia. Aortic stenosis Seen by Cardiology has scheduled Outpatient follow-up to schedule TAVR. HTN soft blood pressure continue metoprolol, lisinopril discontinued. GERD Continue famotidine Time Spent with Patient Time attestation: Total time managing care of this patient today ____ minutes. Discharge coordination time: Greater than 30 minutes Quality: Safe Use of Opioids Does Pt have an Active Cancer Diagnosis on the Problem List?: No Quality: Stroke Does the patient have a stroke diagnosis?: No Physical Exam Vital Signs: Vital Signs: Last Vital Signs Temp 97.5 F 08/31/23 10:59 Pulse 105 H 08/31/23 14:47 Resp 20 08/31/23 10:59 BP 126/68 08/31/23 14:47 Pulse Ox 95 08/31/23 14:47 O2 Del Method Room Air 08/31/23 14:47 BMI result Body Mass Index 27.9 Const: Other: General awake alert x3, sitting comfortably, in no acute distress. Neck no JVD. CVS regular rate rhythm, Respiratory lungs clear to auscultation, no respiratory distress, no wheeze, no rhonchi. Gastrointestinal abdomen soft, non tender, bowel sounds audible Extremities no edema. Neuro nonfocal ,moving all 4 extremity speech clear. Skin ecchymosis right upper extremity, no scalp hematoma noted. Left elbow dressing in place no drainage noted Discharge Plan Discharge Anticipated Discharge Date/Time: 08/31/23 14:06 Patient Disposition: Home, Self-Care Discharge Diagnosis: Syncope Seizure Referrals: Physician,Unknown J [Primary Care Provider] - 1 Week Discharge Medications: New levetiracetam 250 mg Tablet 250 mg PO BID Qty: 60 0RF Continued ezetimibe 10 mg tablet 10 mg PO DAILY Qty: 90 3RF ascorbate calcium (vitamin C) 500 mg tablet 500 mg PO DAILY aspirin [Adult Low Dose Aspirin] 81 mg tablet,delayed release (DR/EC) 81 mg PO WESA@0900 ibuprofen 800 mg tablet 800 mg PO BID PRN (Reason: Pain) atorvastatin 80 mg tablet 80 mg PO DAILY famotidine 20 mg tablet 20 mg PO BID@0900,1400 metoprolol tartrate 50 mg tablet 50 mg PO BID@0900,1400 cilostazol 100 mg tablet 100 mg PO BID@0900,1400 Discontinued lisinopril 20 mg tablet 20 mg PO DAILY Discharge Orders: Discharge Order (Routine); Ordered 08/31/23 Ordered By: Ganesh Nagy Diet: Advance to usual diet Activity on Discharge: As tolerated Stand Alone Forms: Patient Portal Discharge page Care Plan Goals: Syncope likely due to seizure take Keppra 250 mg 1 tablet twice daily do not drive car, or operate machinery, no tub bath Eeg showed underlying tendency for partial seizure disorder Low blood pressures discontinue lisinopril Continue all other medications as before Health Concerns: Aortic stenosis follow-up with Cardiac surgery as outpatient Plan of Treatment: Follow-up with primary care physician and Neurology Dr. Gonzalez call for appointment 4-6 weeks Assessment: As above
--- NOTE | 2023-08-31 15:01 | MHC.CM.PN ---
DP: PT HAS BEEN MEDICALLY CLEARED FOR DC HOME ,NO SERVICES. DAUGHTER WILL TRANSPORT HOME.
== END 2023-08-31 16:07 | disposition home or self-care (01) ==
LOC: HO.ED 18:24 → HO.EDOVER 19:37 → HO.IMC 20:01
PROVIDERS: Admitting Provider Student in an Organized Health Care Education/Training Program; Emergency Provider Emergency Medicine; Visit Provider Hospitalist
DX: R55 Syncope and collapse (principal); I35.0 Nonrheumatic aortic (valve) stenosis; R51.9 Headache, unspecified; S09.90XA Unspecified injury of head, initial encounter; W19.XXXA Unspecified fall, initial encounter; Y92.009 Unspecified place in unspecified non-institutional (private) residence as the place of occurrence of the external cause; J98.11 Atelectasis; I25.10 Atherosclerotic heart disease of native coronary artery without angina pectoris; I10 Essential (primary) hypertension; E78.5 Hyperlipidemia, unspecified; K21.9 Gastro-esophageal reflux disease without esophagitis; Z11.52 Encounter for screening for COVID-19
CPT/HCPCS: 36415; 70450; 71045; 80048; 80076; 83690; 83880; 84484; 85025; 85027; 85610; 85730; 87635; 93005; 93880; 95816; 96360; 96361; 96372; 97161; 99222; 99285; J1650

== ENCOUNTER → 2023-08-29 19:10 | Outpatient (BNV) | payer MEDICARE, SELFPAY | PROVIDERS: Admitting Provider Student in an Organized Health Care Education/Training Program; Emergency Provider Emergency Medicine; Visit Provider Internal Medicine | DX: R40.4 Transient alteration of awareness (principal); I35.0 Nonrheumatic aortic (valve) stenosis | CPT/HCPCS: 99223; 99233 ==

== ENCOUNTER → 2023-08-29 19:10 | Outpatient (BNV) | payer MEDICARE, SELFPAY | PROVIDERS: Admitting Provider Student in an Organized Health Care Education/Training Program; Emergency Provider Emergency Medicine; Visit Provider Hospitalist | DX: I35.0 Nonrheumatic aortic (valve) stenosis (principal); R40.4 Transient alteration of awareness | CPT/HCPCS: 99222; 99233; 99239 ==

== ENCOUNTER 2023-10-07 09:28 | Outpatient (REF) | payer MEDICARE, SELFPAY ==
[2023-10-07 10:07] LABS: Anion Gap 12 (12-20); Blood Urea Nitrogen 16 mg/dL (9-16); Calcium 9.8 mg/dL (8.4-10.2); Carbon Dioxide 29 mmol/L (22-29); Chloride 98 mmol/L (96-108); Estimated Glomerular Filt Rate > 60; Glucose Random 101 mg/dL (60-115); Potassium 4.1 mmol/L (3.3-5.1); Sodium 135 mmol/L (135-145)
[2023-10-07 10:14] LABS: Hematocrit 38.1 % (42.0-52.0); Hemoglobin 12.7 g/dl (14.0-18.0); Mean Corpuscular HGB Conc 33.3 g/dl (31.0-36.0); Mean Corpuscular Hemoglobin 31.2 pg (27.0-33.0); Mean Corpuscular Volume 93.6 fL (80.0-98.0); Mean Platelet Volume 9.5 fL (9.4-12.4); Platelet Count 150 X10*3/uL (160-400); Red Blood Count 4.07 X10*6/uL (4.60-5.80); Red Cell Distribution Width 13.1 % (11.0-16.0); White Blood Count 8.7 X10*3/uL (4.8-10.8)
[2023-10-07 10:40] LABS: INTERNATIONAL NORM RATIO 0.9 (0.9-1.1)
== END 2023-10-07 09:29 | disposition home or self-care (01) ==
LOC: HO.LAB 09:28
PROVIDERS: PCP Internal Medicine; Visit Provider Internal Medicine Cardiovascular Disease
DX: I35.0 Nonrheumatic aortic (valve) stenosis (principal)
CPT/HCPCS: 36415; 80048; 85027; 85610

== ENCOUNTER → 2023-10-24 23:59 | Outpatient (BNV) | payer MEDICARE, SELFPAY | PROVIDERS: PCP Internal Medicine; Visit Provider Internal Medicine Cardiovascular Disease | DX: R93.1 Abnormal findings on diagnostic imaging of heart and coronary circulation (principal); I35.9 Nonrheumatic aortic valve disorder, unspecified | CPT/HCPCS: 93457; 99152 ==

== ENCOUNTER 2023-11-09 08:34 | Outpatient (AMB) | payer MEDICARE, SELFPAY ==
[2023-11-09 08:40] VITALS: BP 136/70; PULSE 78; BMI 27.1
--- NOTE | 2023-11-09 08:40 | A.OFFVIS_ITS ---
Intake Vital Signs 11/09/23 08:40 Height 5 ft 7 in Weight 172 lb 13.478 oz BMI 27.1 BP 136/70 Blood Pressure Location Lt brachial Position Sitting Pulse 78 Pulse Source Pulse Oximeter Intake Visit Reasons: 6 mth f/up- Post cardiac cath Intake Note: 6 mnth f/up pt it fine no symptoms Lemon Grower Required: No Accompanied by: Self / Same As Patient Allergies pollen extracts [POLLEN] Allergy (Mild, Verified 08/29/23 16:30) RUNNY NOSE Medication List - Last Reconciled 11/09/23 by Silas Campos MD ascorbate calcium (vitamin C) 500 mg PO DAILY aspirin (Adult Low Dose Aspirin) 81 mg PO WESA@0900 atorvastatin 80 mg PO DAILY cilostazol 100 mg PO BID@0900,1400 ezetimibe 10 mg PO DAILY famotidine 20 mg PO BID@0900,1400 ibuprofen 800 mg PO BID PRN levetiracetam 250 mg PO BID metoprolol tartrate 50 mg PO BID@0900,1400 HPI HPI Comments History of Present Illness Details Javier comes for follow-up. He is undergoing TAVR evaluation. They should currently is access site. He has significant peripheral vascular disease and poor femoral access. Evaluation for transcarotid approach. He has upcoming appointment. He is somewhat frustrated with the whole process as he has to undergo through a lot of testing. He does have shortness of breath when he over exerts but does not get shortness of breath with routine activity. Denies any exertional chest pain or lightheadedness. No syncopal episodes. No recurrent seizure episodes. No orthopnea, PND, leg edema. Takes all his medications. [facility] Medical History Carotid stenosis, bilateral Aortic stenosis CAD (coronary artery disease) Hyperlipidemia HTN (hypertension) Aortic stenosis Peripheral vascular disease Bilateral carotid artery disease Postoperative atrial fibrillation Surgical History Hx of coronary artery bypass graft Family History Father CVD (cardiovascular disease) Mother No problems noted. Social History Household Members: None Housing: Condominium Do you presently have visiting nurse or other home services: No Patient Tobacco Use Status: Never used Tobacco service: No Review of Systems Const Reports chills, Reports fatigue, Reports fever(s), Reports frequent falls, Reports weakness, Reports weight gain and Reports weight loss ENT Reports dizziness Card Reports chest pain, Reports leg edema, Reports lightheadedness, Reports palpitations, Reports dyspnea and Reports dyspnea on exertion Resp Reports cough, Reports dyspnea and Reports dyspnea on exertion GI Reports hematochezia Musc Reports abnormal gait, Reports muscle weakness, Reports numbness, Reports radiating pain into limb and Reports tingling Neuro Reports abnormal gait, Reports dizziness, Reports frequent falls, Reports nu mbness, Reports tingling and Reports weakness Endo Reports fatigue and Reports palpitations Physical Exam Vital Signs: Last Vital Signs Pulse 78 11/09/23 08:40 BP 136/70 11/09/23 08:40 BMI result Body Mass Index 27.1 Const General: cooperative, comfortable, no acute distress, alert and awake Nutritional Appearance: average body habitus Orientation/consciousness: patient oriented x3 Limitations: no limitations Neck Neck: Yes trachea midline, Yes supple and Yes no JVD Resp Effort & Inspection: normal respiratory effort Auscultation: clear to auscultation bilaterally and diminished lung sounds Cardio Jugular venous distension: no JVD Palpation: normal PMI Rate: regular rate Rhythm: regular rhythm Heart sounds: S1 normal heart sound present, Murmur heart sound present systolic late, decrescendo and crescendo and Other heart sounds present (Soft S2) GI Auscultation: normal bowel sounds Skin General skin exam: no rashes or lesions noted and ecchymosis Neuro General: patient oriented x3 and no focal motor deficits Extrem General: Yes no clubbing, cyanosis or edema Psych Appearance: grossly normal Assessment & Plan Assessment & Plan (1) Aortic stenosis: Code(s): I35.0 - Nonrheumatic aortic (valve) stenosis Plan: Aortic stenosis which is severe by both clinical exam by echocardiogram with symptoms of shortness of breath when he pushes himself. He is being evaluated by transcatheter valve [facility] at [facility]. Access is an issue. Considering transcarotid access for him. He is undergoing the process for evaluation. He is somewhat frustrated with it. Although I discussed with him that this procedure is necessary to improve his quality of life and reduce long-term cardiovascular event rate and improve his longevity. This was discussed with him. Meanwhile continue aggressive medical therapy. Advised to call me with worsening symptoms. Will follow-up after transcatheter valve replacement after echocardiogram. (2) CAD (coronary artery disease): Code(s): I25.10 - Atherosclerotic heart disease of [place] coronary artery without angina pectoris Plan: CAD with prior coronary artery bypass grafting in diffuse vascular disease including bilateral peripheral vascular disease as well as carotid disease. Patient is currently on low-dose aspirin therapy as well as high-intensity statin therapy. Target goal LDL less than 60 mg/dL. Blood pressure is currently well optimized on current therapy. Continue ezetimibe therapy as well. He had recent cardiac catheterization which showed patent grafts with moderate disease in the RCA. No symptoms of angina at current time. No other interventions required. Will follow up in the clinic in 2-3 months time, sooner p.r.n.. Thank you for allowing me to partake in his care Coding Level of Care Code Est Pt Level 4 (70532) Diagnoses Aortic stenosis I35.0 CAD (coronary artery disease) I25.10
== END 2023-11-09 09:01 | disposition home or self-care (01) ==
PROVIDERS: PCP Internal Medicine; Visit Provider Internal Medicine Cardiovascular Disease
DX: I35.0 Nonrheumatic aortic (valve) stenosis (principal); I25.10 Atherosclerotic heart disease of native coronary artery without angina pectoris
CPT/HCPCS: 99214

== ENCOUNTER → 2023-11-09 08:34 | Outpatient (BNVA) | payer MEDICARE, SELFPAY | PROVIDERS: PCP Internal Medicine; Visit Provider Internal Medicine Cardiovascular Disease | DX: I35.0 Nonrheumatic aortic (valve) stenosis (principal); I25.10 Atherosclerotic heart disease of native coronary artery without angina pectoris | CPT/HCPCS: 99212 ==

== ENCOUNTER 2023-11-16 23:59 | Outpatient (BNV) | payer MEDICARE, SELFPAY | END 2023-11-17 23:59 | PROVIDERS: PCP Internal Medicine; Visit Provider Internal Medicine | DX: R77.8 Other specified abnormalities of plasma proteins (principal); I35.0 Nonrheumatic aortic (valve) stenosis; Z95.1 Presence of aortocoronary bypass graft; I10 Essential (primary) hypertension | CPT/HCPCS: 99223 ==

== ENCOUNTER 2023-12-19 09:32 | Outpatient (AMB) | payer MEDICARE, SELFPAY ==
--- NOTE | 2023-12-19 09:59 | A.OFFVIS_ITS ---
Intake Vital Signs 12/19/23 10:00 Height 5 ft 7 in Weight 169 lb 5.04 oz BMI 26.5 BP 130/72 Blood Pressure Location Rt brachial Position Sitting Pulse 80 Pulse Source Pulse Oximeter Intake Visit Reasons: [facility] discharge f/u [employer] Required: No Allergies pollen extracts [POLLEN] Allergy (Mild, Verified 12/19/23 10:02) RUNNY NOSE Medication List - Last Reconciled 12/19/23 by CARI Kendall ascorbate calcium (vitamin C) 500 mg PO DAILY aspirin (Adult Low Dose Aspirin) 81 mg PO WESA@0900 atorvastatin 80 mg PO DAILY cilostazol 100 mg PO BID@0900,1400 ezetimibe 10 mg PO DAILY famotidine 20 mg PO BID@0900,1400 ibuprofen 800 mg PO BID PRN levetiracetam 250 mg PO BID lisinopril 10 mg PO DAILY metoprolol tartrate 50 mg PO BID@0900,1400 HPI [facility] discharge f/u HPI Details Javier is an 83-year-old male with past medical history of hyperlipidemia, peripheral vascular disease, CAD, Coronary artery bypass grafting x2, aortic stenosis, abdominal aortic aneurysm status post recent abdominal aortic aneurism endovascular repair who presents for follow-up. Today he reports that he underwent his aneurysm repair at [facility] with Dr. Dominguez. He reports feeling recovered from that procedure. His groin sites were checked at his last visit with Dr. Dominguez. He has not having any abdominal discomfort. He has known severe aortic stenosis and is waiting for TAVR procedure. He does have shortness of breath with exertional activities. He denies any symptoms with normal ADLs. No chest discomfort at rest or with activity. No lightheadedness, presyncope, syncope, falls. No shortness of breath at rest, palpitations, PND, orthopnea or edema. He is taking all meds as directed. [facility] Medical History (Updated 12/19/23 @ 11:47 by CARI Kendall) Carotid stenosis, bilateral Aortic stenosis CAD (coronary artery disease) Hyperlipidemia HTN (hypertension) Aortic stenosis Peripheral vascular disease Bilateral carotid artery disease Postoperative atrial fibrillation Surgical History (Updated 12/19/23 @ 14:18 by MEETA KendallC) Hx of coronary artery bypass graft Family History Father CVD (cardiovascular disease) Mother No problems noted. Social History Household Members: None Housing: Condominium Do you presently have visiting nurse or other home services: No Patient Tobacco Use Status: Never used Tobacco service: No Review of Systems Const All systems reviewed & are unremarkable except as noted in HPI and below ENT Denies dizziness Card Denies chest pain, Denies chest pain at rest, Denies chest pain with activity, Denies rapid heart rate, Denies pedal edema, Denies edema, Denies leg edema, Denies lightheadedness, Denies palpitations, Denies dyspnea, Reports dyspnea on exertion and Denies orthopnea Resp Denies cough, Denies dyspnea and Reports dyspnea on exertion GI Denies hematochezia and Denies change in stool character Musc Denies abnormal gait, Denies limited range of motion, Denies muscle cramps, Denies muscle weakness, Denies numbness, Denies radiating pain into limb, Denies stiffness and Denies tingling Neuro Denies abnormal gait, Denies dizziness, Denies numbness and Denies tingling Endo Denies palpitations Physical Exam Vital Signs: Last Vital Signs Pulse 80 12/19/23 10:00 BP 130/72 12/19/23 10:00 BMI result Body Mass Index 26.5 Const General: cooperative, healthy appearing, comfortable and no acute distress Orientation/consciousness: patient oriented x3 Neck Neck: Yes normal visual inspection Resp Effort & Inspection: normal respiratory effort Auscultation: clear to auscultation bilaterally, no crackles, no rales, no rhonchi and no wheezes Cardio Jugular venous distension: no JVD Rate: regular rate Rhythm: regular rhythm Heart sounds: S1 normal heart sound present, S2 normal heart sound present, no murmurs and no rubs Neuro General: patient oriented x3 Extrem General: Yes normal to inspection and No no pedal edema Psych Appearance: grossly normal Mental Status: mental status grossly normal Speech and movement: Normal speech and movement present Assessment & Plan Assessment & Plan (1) Abdominal aortic aneurysm: Code(s): I71.40 - Abdominal aortic aneurysm, without rupture, unspecified Plan: Patient has known severe aortic stenosis. While undergoing TAVR workup he was found to have a large abdominal aortic aneurysm. He underwent endovascular repair on 11/16/[address] Dominguez. He has done well since that time. He reports full recovery. He denies having symptoms of abdominal discomfort prior to finding the aneurysm. Continue aspirin, Plavix, atorvastatin. He will continue to follow with Dr. Dominguez. (2) H/O aortic aneurysm repair: Comment: Abdominal aortic aneurysm repair 11/16/2023 Code(s): Z98.890 - Other specified postprocedural states; Z86.79 - Personal history of other diseases of the circulatory system (3) Aortic stenosis: Code(s): I35.0 - Nonrheumatic aortic (valve) stenosis Plan: Known severe aortic stenosis. Symptom of shortness of breath with exertion activity. Cardiac catheterization 10/24/2023 showed patent grafts, proximal RCA 50% stenosis. He was referred to Dr. Griggs for TAVR. Testing done as part of TAVR workup identified the large abdominal aortic aneurysm has been surgically repaired as above. He now is awaiting a date for his TAVR procedure. No new or concerning symptoms. He has been doing only light physical activity. Blood pressure is well controlled. Reviewed cardinal signs of severe . Emergency care if needed for symptoms. Cardiology follow-up in 3 months which showed be post TAVR. (4) CAD (coronary artery disease): Code(s): I25.10 - Atherosclerotic heart disease of [place] coronary artery without angina pectoris Plan: History of CAD with prior 2 vessel Coronary artery bypass grafting. Recent catheterization showing patent grafts, 50% RCA stenosis. No reports of anginal sounding symptoms. Continue aspirin indefinitely. Continue high-dose atorvastatin, Zetia, continue metoprolol, lisinopril. Bernice LDL goal less than 70. Last cholesterol in our system 11/04/2021 had shown LDL 70. Will enter orders for updated lipid profile and remind patient. Signs and symptoms of angina reviewed. (5) Hx of coronary artery bypass graft: Comment: CABG times 3. RODRIGUEZ to LAD and SVG graft to D1 and OM, January 2012 Code(s): Z95.1 - Presence of aortocoronary bypass graft Plan: As above (6) S/P cardiac catheterization: Comment: 10/24/2023 severe distal left main stenosis, patent RODRIGUEZ to the LAD and vein graft to the diagonal, left circumflex occluded ostial with patent vein graft to OM, proximal RCA 50% stenosis Code(s): Z98.890 - Other specified postprocedural states Plan: As above Plan Time spent on chart review, documentation, interview assess Orders: Orders Lipid Panel Today I25.10 - Atherosclerotic heart disease of [place] coronary artery without angina pectoris Coding Level of Care Code Est Pt Level 4 (85601) Diagnoses Abdominal aortic aneurysm I71.40 H/O aortic aneurysm repair Z98.890; Z86.79 Aortic stenosis I35.0 CAD (coronary artery disease) I25.10 Hx of coronary artery bypass graft Z95.1 S/P cardiac catheterization Z98.890 Time Spent (min) 28
[2023-12-19 10:00] VITALS: BP 130/72; PULSE 80; BMI 26.5
== END 2023-12-19 10:34 | disposition home or self-care (01) ==
PROVIDERS: PCP Internal Medicine; Visit Provider Nurse Practitioner Family
DX: I71.40 Abdominal aortic aneurysm, without rupture, unspecified (principal); Z98.890 Other specified postprocedural states; Z86.79 Personal history of other diseases of the circulatory system; I35.0 Nonrheumatic aortic (valve) stenosis; I25.10 Atherosclerotic heart disease of native coronary artery without angina pectoris; Z95.1 Presence of aortocoronary bypass graft
CPT/HCPCS: 99214

== ENCOUNTER → 2023-12-19 09:32 | Outpatient (BNVA) | payer MEDICARE, SELFPAY | PROVIDERS: PCP Internal Medicine; Visit Provider Nurse Practitioner Family | DX: I71.40 Abdominal aortic aneurysm, without rupture, unspecified (principal); I35.0 Nonrheumatic aortic (valve) stenosis; I25.10 Atherosclerotic heart disease of native coronary artery without angina pectoris; Z86.79 Personal history of other diseases of the circulatory system; Z79.01 Long term (current) use of anticoagulants; Z79.02 Long term (current) use of antithrombotics/antiplatelets; Z79.899 Other long term (current) drug therapy; Z95.1 Presence of aortocoronary bypass graft; Z98.890 Other specified postprocedural states | CPT/HCPCS: 99212 ==

== ENCOUNTER 2023-12-20 06:39 | Outpatient (REF) | payer MEDICARE, SELFPAY ==
[2023-12-20 08:33] LABS: Cholesterol 137 mg/dL (<200); HDL Cholesterol 50 mg/dL (>40); LDL Cholesterol Calculated 66 mg/dL (<100); Triglycerides 109 mg/dL (<150)
== END 2023-12-20 06:40 | disposition home or self-care (01) ==
LOC: HO.LAB 06:39
PROVIDERS: PCP Internal Medicine; Visit Provider Nurse Practitioner Family
DX: I25.10 Atherosclerotic heart disease of native coronary artery without angina pectoris (principal)
CPT/HCPCS: 36415; 80061

== ENCOUNTER 2024-02-26 09:18 | Emergency (ER) | payer MEDICARE, SELFPAY ==
[2024-02-26 09:26] VITALS: BP 147/80; PULSE 76; RESP 20; TEMP 36.4; O2SAT 100; BMI 26.6
--- NOTE | 2024-02-26 09:37 | ED.GENADULT ---
HPI - General Adult General Chief complaint: Skin/Abscess/Foreign Body Stated complaint: R arm wound Time Seen by Provider: 02/26/24 09:37 Source: patient Mode of arrival: ambulatory Limitations: no limitations History of Present Illness HPI narrative: Patient is an 83 year old assigned male at with a history of CAD presenting to the emergency department today with a right upper arm skin tear. Patient states that on 02/19/2024 his right arm got caught in an elevator and caused a skin tear. Patient states that he is not sure if he is up to date on his tetanus shots or not. Patient denies any dizziness, lightheadedness, abdominal pain, nausea, vomiting, fever, chills, blurry vision, double vision, loss of vision, chest pain, difficulty breathing, shortness of breath, back pain, night sweats, pain with urination, increased urinary frequency, increased urinary urgency, blood in his urine or stool, syncope or a near syncopal episode, bowel incontinence, bladder incontinence, bowel retention, bladder retention, or any other complaints at this time. Onset (ago): week(s) (1) Location: right and upper extremity Radiation: non-radiation Severity: mild Relieving factors: none Exacerbating factors: none Associated symptoms: denies other symptoms Treatments prior to arrival: none Related Data Home Medications Medication Instructions Recorded Confirmed atorvastatin 80 mg tablet 80 mg PO DAILY 11/05/20 12/19/23 cilostazol 100 mg tablet 100 mg PO BID@0900,1400 11/05/20 12/19/23 famotidine 20 mg tablet 20 mg PO BID@0900,1400 gi upset 11/05/20 12/19/23 ibuprofen 800 mg tablet 800 mg PO BID PRN Pain 11/05/20 12/19/23 metoprolol tartrate 50 mg tablet 50 mg PO BID@0900,1400 11/05/20 12/19/23 ascorbate calcium (vitamin C) 500 500 mg PO DAILY 05/10/21 12/19/23 mg tablet aspirin 81 mg tablet,delayed 81 mg PO WESA@0900 11/03/21 12/19/23 release (Adult Low Dose Aspirin) lisinopril 20 mg tablet 10 mg PO DAILY 12/19/23 12/19/23 Previous Rx's Medication Instructions Recorded levetiracetam 250 mg tablet 250 mg PO BID #60 tabs 08/31/23 ezetimibe 10 mg tablet 10 mg PO DAILY #90 tabs 10/17/23 cefuroxime axetil 250 mg tablet 500 mg (2 x 250 mg) PO BID 7 days 02/26/24 #28 tabs Allergies Allergy/AdvReac Type Severity Reaction Status Date / Time pollen extracts [POLLEN] Allergy Mild RUNNY NOSE Verified 12/19/23 10:02 Review of Systems Constitutional: Constitutional: Reports no additional constitutional complaints, Denies chills, Denies fever(s) and Denies night sweats Eyes: Eyes: Reports no additional eye complaints, Denies blurry vision, Denies change in vision, Denies diplopia, Denies eye discharge, Denies loss of vision and Denies eye pain ENT: Denies dizziness Cardiovascular: Cardiovascular: Reports no additional cardiovascular complaints, Denies chest pain, Denies lightheadedness, Denies Loss of Consciousness and Denies dyspnea Respiratory: Respiratory: Reports no additional respiratory complaints and Denies dyspnea Gastrointestinal: Gastrointestinal: Reports no additional gastrointestinal complaints, Denies abdominal pain, Denies melena, Denies hematochezia, Denies change in bowel habits and Denies change in stool character Genitourinary: Genitourinary: Reports no additional male genitourinary complaints, Denies hematuria, Denies oliguria, Denies difficulty urinating, Denies dysuria, Denies urinary frequency, Denies urinary hesitancy, Denies urinary incontinence and Denies urinary urgency Musculoskeletal: Musculoskeletal: Reports no additional musculoskeletal complaints, Denies numbness and Denies tingling Comments: right arm skin tear Neurologic: Denies dizziness, Denies loss of vision, Denies numbness and Denies tingling Psychiatric: Psychiatric: Reports no additional psychiatric complaints Endocrine: Endocrine: Reports no additional endocrine complaints Hematologic/Lymphatic: Hematologic/Lymphatic: Reports no additional hematologic/lymphatic complaints Allergic/Immunologic: Allergic/Immunologic: Reports no additional allergic/immunologic complaints PMFSH Past Medical History Attestation statement: The following information was validated with the patient. Source: old records reviewed and nursing notes reviewed Medical History Carotid stenosis, bilateral Aortic stenosis CAD (coronary artery disease) Hyperlipidemia HTN (hypertension) Aortic stenosis Peripheral vascular disease Bilateral carotid artery disease Postoperative atrial fibrillation Surgical History Hx of coronary artery bypass graft Family History Family History Father CVD (cardiovascular disease) Mother No problems noted. Social History Social History Household Members: None Housing: Condominium Do you presently have visiting nurse or other home services: No Patient Tobacco Use Status: Never used Tobacco service: No Physical Exam ED Vital Signs: Vital Signs - 24 hr 02/26/24 09:26 02/26/24 10:21 Temperature 97.6 F 97.6 F Pulse Rate 76 76 Respiratory Rate 20 20 Blood Pressure 147/80 H 147/80 H Pulse Oximetry 100 100 Oxygen Delivery Method Room Air Room Air BMI result Body Mass Index 26.6 Const General: cooperative, no acute distress, alert and awake Nutritional Appearance: well nourished Orientation/consciousness: patient oriented x3 Limitations: no limitations HENMT Head: Yes normal to inspection and Yes atraumatic Ears: hearing grossly normal bilaterally and external ears normal General nose exam: Normal external nose present, no nasal discharge noted and no epistaxis Face and sinus: Yes normal facial exam, No abrasion and No laceration Mouth: Normal oral and palatal mucosa present, no drooling and no muffled voice Eyes General: appearance normal, both eyes and all related structures Periorbital: periorbital findings normal Eyelids: Yes eyelids normal Conjunctivae: conjunctivae normal Pupils: Equal, round and reactive pupils present EOM: EOMs intact bilaterally Neck Neck: Yes normal visual inspection, Yes full ROM and Yes no lymphadenopathy Chest Chest palpation & inspection: normal inspection of the chest Resp Effort & Inspection: normal respiratory effort and able to speak in complete sentences GI Inspection: Yes normal to inspection Neuro General: patient oriented x3 and moves all extremities Cranial nerves: Yes Equal, round and reactive pupils present Cognition (Neuro): normal cognition Motor exam (neuro): 5/5 motor strength present throughout Sensory Exam: Normal double simultaneous stimulation for sensation Coordination: [id number] test normal Extrem General: Yes full ROM and Yes capillary refill normal Elbow/forearm/wrist images: 1. skin tear - no active bleeding, dark colored skin folded on top of itself Psych Appearance: grossly normal Mental Status: mental status grossly normal Affect: normal affect Attitude: cooperative Thought process: Normal thought process present Thought content: Normal thought content present Insight: Good insight present (Psych) Medications Administered Discontinued Medications Generic Name Dose Route Start Last Admin Trade Name Yoly PRN Reason Stop Dose Admin Diphtheria/Tetanus/Acell Pertussis 0.5 ml 02/26/24 09:48 02/26/24 10:15 Diphth,Pertus(Acell),Tet Adult 0.5 Ml Syringe IM 02/26/24 09:49 0.5 ml .ONCE ONE Administration Procedures Laceration Laceration 1: Site: upper extremity Side (If applicable): right Description: flap Depth: simple, single layer Pre-repair: wound explored, irrigated extensively, deep structures intact and extensive debridement Medical Decision Making Medical Decision Making MDM Narrative: Patient is an 83 year old assigned male at with a history of CAD presenting to the emergency department today with a right arm skin tear. Patient's physical exam was as noted in the physical exam portion of this note. I called and spoke with a wound center provider who recommended removing the tissue, dressing it with Xeroform, and having him follow up with their office. I explained my physical exam findings as well as all test results to the patient. I answered all questions asked by the patient. I debrided the wound and dressed it with xeroform. Procedure went without incident. Patient's PMS was intact prior to and after procedure. Patient brought up to date on tetanus status. Given time, nature of injury, and the minimal erythema around the wound - will cover with ABX. I stressed the importance of the patient taking his medication as prescribed. I stressed the importance of the patient following up with his primary care provider and the wound center. I stressed the importance of the patient returning to the emergency department immediately if his symptoms were to worsen or if he were to develop any dizziness, shortness of breath, difficulty breathing, chest pain, blurry vision, loss of vision, nausea, vomiting, abdominal pain, fever, chills, back pain, or any other complaints. Patient verbalized agreement and understanding with this treatment plan and discharge. Differential Diagnosis Differential Diagnoses: The differential diagnosis associated with the presentation includes Skin tear Cellulitis Admission/Observation Consideration of admission/observation: Escalation of care including admission/observation considered Patient would have been admitted to the hospital had his clinical presentation warranted hospital admission. Consult Healthcare Provider Management of the patient was discussed with: [employer] (spoke with wound center as noted in the MDM Rationale portion of this note.) Prescription Management I considered prescription management with: Antibiotic (patient prescribed ABX as noted in the MDM Rationale portion of this note) Discharge Plan Discharge Clinical Impression: Skin tear of right upper extremity, Cellulitis Patient Disposition: Home, Self-Care Instructions: Cellulitis (DC) Additional Instructions: Take your antibiotic as prescribed. Do NOT soak the affected area. Perform daily dressing changes and wound checks. Follow up with your primary care provider and the wound center. Return to the emergency department immediately if your symptoms worsen or if you develop any dizziness, shortness of breath, difficulty breathing, chest pain, blurry vision, loss of vision, nausea, vomiting, abdominal pain, fever, chills, back pain, or any other complaints. Prescriptions: New cefuroxime axetil 250 mg tablet 500 mg PO BID 7 Days Qty: 28 0RF No Action ezetimibe 10 mg tablet 10 mg PO DAILY Qty: 90 3RF levetiracetam 250 mg Tablet 250 mg PO BID Qty: 60 0RF ascorbate calcium (vitamin C) 500 mg tablet 500 mg PO DAILY aspirin [Adult Low Dose Aspirin] 81 mg tablet,delayed release (DR/EC) 81 mg PO WESA@0900 ibuprofen 800 mg tablet 800 mg PO BID PRN (Reason: Pain) atorvastatin 80 mg tablet 80 mg PO DAILY famotidine 20 mg tablet 20 mg PO BID@0900,1400 metoprolol tartrate 50 mg tablet 50 mg PO BID@0900,1400 cilostazol 100 mg tablet 100 mg PO BID@0900,1400 lisinopril 20 mg tablet 10 mg PO DAILY Referrals: [facility] [place], [place] Wound Care Management [Provider Group] (Call to establish and follow up with the wound center.) Oleg Latham MD [Primary Care Provider] - Interventions: ED Discharge Assessment Last Done: 02/26/24 10:21 Discharge Date/Time: 02/26/24 10:24 Print Language: Indonesian
--- NOTE | 2024-02-26 09:45 | PC.NURSE ---
PT REPORTS THAT HIS R ARM GOT STUCK IN AN ELEVATOR ABOUT 1 WK AGO. HE DENIES PAIN AT THIS TIME. PT REPORTS THAT HE TAKES A BABY ASPRIN DAILY. SKIN ROLLED AND WOUND EXPOSED. WOUND CLEANED AND DRESSED W STERILE DSG. PA AT BEDSIDE.
[2024-02-26] MEDS: Diphth,Pertus(ACell),Tet Adult 0.5 ML SYRINGE IM (10:15)
[2024-02-26 10:21] VITALS: BP 147/80; PULSE 76; RESP 20; TEMP 36.4; O2SAT 100
--- NOTE | 2024-02-26 10:22 | PC.NURSE ---
TDAP vaccine administered, CDC guideline VIS given to patient, diischarge instructions given to patient, patient going to wound clinic now, prescriptions sent to patient's preferred pharmacy, patient left ambulatory.
== END 2024-02-26 10:24 | disposition home or self-care (01) ==
PROVIDERS: Emergency Provider Emergency Medicine; PCP Internal Medicine
DX: S41.112A Laceration without foreign body of left upper arm, initial encounter (principal); S40.811A Abrasion of right upper arm, initial encounter; W26.9XXA Contact with unspecified sharp object(s), initial encounter; Y93.9 Activity, unspecified; Y92.9 Unspecified place or not applicable; Y99.8 Other external cause status; Z23 Encounter for immunization
CPT/HCPCS: 12031; 90471; 90715; 99282; 99284

== ENCOUNTER 2024-03-05 08:47 | Outpatient (RCR) | payer MEDICARE, SELFPAY | END 2024-04-05 09:00 | disposition home or self-care (01) | LOC: HO.WCC 08:47 | PROVIDERS: PCP Internal Medicine; Visit Provider Surgery | DX: S51.811D Laceration without foreign body of right forearm, subsequent encounter (principal); S51.812D Laceration without foreign body of left forearm, subsequent encounter; I10 Essential (primary) hypertension; I25.10 Atherosclerotic heart disease of native coronary artery without angina pectoris; Z95.1 Presence of aortocoronary bypass graft; Z95.2 Presence of prosthetic heart valve; Z87.891 Personal history of nicotine dependence | CPT/HCPCS: 11042; 11045; 99212 ==

== ENCOUNTER 2024-03-27 10:18 | Outpatient (AMB) | payer MEDICARE, SELFPAY ==
--- NOTE | 2024-03-27 10:21 | MHC.OFFVIS ---
Vital Signs 03/27/24 10:22 Height 5 ft 7 in Weight 167 lb 8.821 oz BMI 26.2 BP 120/70 Blood Pressure Location Lt brachial Position Sitting Pulse 80 Intake Visit Reasons: 3 mth s/p TAVR Intake Note: follow-up post TAVR 03/11 feeling good Pricing Intern Required: No Allergies pollen extracts [POLLEN] Allergy (Mild, Verified 12/19/23 10:02) RUNNY NOSE Medication List - Last Reconciled 03/27/24 by Silas Campos MD ascorbate calcium (vitamin C) 500 mg PO DAILY atorvastatin 80 mg PO DAILY cilostazol 100 mg PO BID@0900,1400 clopidogrel 75 mg PO DAILY ezetimibe 10 mg PO DAILY famotidine 20 mg PO BID@0900,1400 ibuprofen 800 mg PO BID PRN levetiracetam 250 mg PO BID lisinopril 10 mg PO DAILY metoprolol tartrate 50 mg PO BID@0900,1400 HPI Comments Details: Javier comes for follow-up after recent transcatheter aortic valve replacement, had to use left carotid approach requiring left carotid cut down due to significant peripheral vascular disease. Did well. Has black and blue related to the IVs and arterial line. Otherwise he says that his energy level slightly improved. His shortness of breath has improved. He denies any palpitations. No orthopnea, PND, leg edema. No lightheadedness, syncope. [facility] Medical History Carotid stenosis, bilateral Aortic stenosis CAD (coronary artery disease) Hyperlipidemia HTN (hypertension) Aortic stenosis Peripheral vascular disease Bilateral carotid artery disease Postoperative atrial fibrillation Surgical History (Updated 03/27/24 @ 10:44 by Silas Campos MD) Status post transcatheter aortic valve replacement (TAVR) using bioprosthesis Hx of coronary artery bypass graft Family History Father CVD (cardiovascular disease) Mother No problems noted. Social History Household Members: None Housing: Condominium Do you presently have visiting nurse or other home services: No Patient Tobacco Use Status: Never used Tobacco service: No Review of Systems Const Denies chills, Denies fatigue, Denies fever(s), Denies frequent falls, Denies weakness, Denies weight gain and Denies weight loss ENT Denies dizziness Card Denies chest pain, Denies leg edema, Denies lightheadedness, Denies palpitations, Denies dyspnea, Denies dyspnea on exertion, Denies orthopnea and Denies other (loss of consciousness) Resp Denies cough, Denies dyspnea and Denies dyspnea on exertion GI Denies hematochezia and Denies change in stool character Musc Denies abnormal gait, Denies muscle weakness, Denies numbness, Denies radiating pain into limb and Denies tingling Neuro Denies abnormal gait, Denies dizziness, Denies frequent falls, Denies numbness, Denies tingling and Denies weakness Endo Denies fatigue and Denies palpitations Physical Exam Vital Signs: Last Vital Signs Pulse 80 03/27/24 10:22 BP 120/70 03/27/24 10:22 BMI result Body Mass Index 26.2 Const General: cooperative, healthy appearing, comfortable and no acute distress Orientation/consciousness: patient oriented x3 Neck Neck: Yes normal visual inspection Resp Effort & Inspection: normal respiratory effort Auscultation: clear to auscultation bilaterally, no crackles, no rales, no rhonchi and no wheezes Cardio Jugular venous distension: no JVD Rate: regular rate Rhythm: regular rhythm Heart sounds: S1 normal heart sound present, S2 normal heart sound present, no click, no gallops, no murmurs and no rubs Neuro General: patient oriented x3 Extrem General: Yes normal to inspection and No no pedal edema Psych Appearance: grossly normal Mental Status: mental status grossly normal Speech and movement: Normal speech and movement present Assessment & Plan Assessment & Plan (1) Status post transcatheter aortic valve replacement (TAVR) using bioprosthesis: Comment: 26 mm bioprosthetic aortic valve, left carotid approach, March 11 2024 Code(s): Z95.3 - Presence of xenogenic heart valve Category: Surgical Plan: Status post transcatheter aortic valve replacement for severe aortic stenosis with difficult vascular approach requiring left carotid cut down. Patient did well. Schedule for echocardiogram next week as a baseline post valve replacement. Recommend phase 2 cardiac rehabilitation although he said he will like to walk outside on his own. He developed left bundle-branch block, had a event monitor performed by [facility]. Will follow-up on the results. Advised to call me with any syncopal episodes. Dual antiplatelet therapy to continue given his diffuse vascular disease for long-term. Advise aggressive risk factor modification. SBE prophylaxis as per ACC/aha guidelines. (2) CAD (coronary artery disease): Code(s): I25.10 - Atherosclerotic heart disease of [place] coronary artery without angina pectoris Category: Medical Plan: CAD with remote coronary artery bypass grafting. Currently having no symptoms. Continue aggressive risk factor modification. Blood pressure is currently well optimized advised to monitor blood pressure at home maintain a log. Goal blood pressure less than 130/84. Is diffuse and significant peripheral vascular disease including infrarenal abdominal aortic aneurysm being followed by vascular surgery at [facility]. Continue aggressive lipid modification goal LDL less than 60 mg/dL advised to continue atorvastatin as well as ezetimibe. Lipid panel in the near future. Continue maintain activity level as tolerated. Continue dual antiplatelet therapy. Follow up in the clinic in 6 months time, sooner p.r.n.. Thank you for allowing me to partake in his care Medications: Changed From levetiracetam 250 mg PO BID 60 tabs 0RF To levetiracetam 250 mg PO BID Coding Level of Care Code Est Pt Level 4 (32567) Diagnoses Status post transcatheter aortic valve replacement (TAVR) using bioprosthesis Z95.3 CAD (coronary artery disease) I25.10
[2024-03-27 10:22] VITALS: BP 120/70; PULSE 80; BMI 26.2
== END 2024-03-27 10:38 | disposition home or self-care (01) ==
PROVIDERS: PCP Internal Medicine; Visit Provider Internal Medicine Cardiovascular Disease
DX: Z95.3 Presence of xenogenic heart valve (principal); I25.10 Atherosclerotic heart disease of native coronary artery without angina pectoris
CPT/HCPCS: 99214

== ENCOUNTER → 2024-03-27 10:18 | Outpatient (BNVA) | payer MEDICARE, SELFPAY | PROVIDERS: PCP Internal Medicine; Visit Provider Internal Medicine Cardiovascular Disease | DX: I25.10 Atherosclerotic heart disease of native coronary artery without angina pectoris (principal); Z95.3 Presence of xenogenic heart valve | CPT/HCPCS: 99212 ==

== ENCOUNTER → 2024-04-04 09:46 | Outpatient (REF) | payer MEDICARE, SELFPAY ==
--- NOTE | 2024-04-04 09:53 | CA_ITS ---
Transthoracic Echocardiogram Patient (Last, First, Middle): Jaiver Salguero P Gender: Male Date of : 1940 Age: 83 Procedure Date: 04/04/2024 Procedure Type: Transthoracic Echocardiogram Location: OP Height: 170.18 cm Weight: 75.75 kg BSA: 1.87 m2 Heart Rate: bpm BP: 128 / 60 mmHg Momd Teacher: TO Referring MD: Braulio Griggs MD Research Laboratory Manager: Silas Campos MD Symptoms: S/P TAVR Study Quality: Fair ECG Rhythm: Sinus Conclusions: - 1. Normal LV ejection fraction of 55-60% with moderate asymmetric septal hypertrophy with impaired relaxation filling pattern 2. Moderately dilated left atrium 3. Normally functioning bioprosthetic aortic valve with mean gradient of 7 mm Hg 4. Mild mitral regurgitation with moderate mitral annular calcification 5. Mildly dilated ascending aorta at 4 cm 6. Normal RV systolic pressure 7. No pericardial effusion Findings Procedure Information The study quality is limited by the patients inability to tolerate the test. Left Ventricle Normal left ventricular size, thickness, and systolic function. The visually estimated ejection fraction is between 55-60%. Spectral Doppler is indicative of an impaired relaxation filling pattern. E/E prime ratio is between 8 and 15 consistent with indeterminate filling pressures. There is moderate septal asymmetric hypertrophy. Right Ventricle Mildly increased right ventricular cavity size. There is mild to moderately decreased right ventricular systolic function. Atria The left atrium is moderately dilated. There is lipomatous hypertrophy of the interatrial septum. There is no evidence of interatrial shunt. The right atrium is mildly dilated. Aortic Valve A bioprosthetic aortic valve is present. The prosthetic aortic valve appears to be functioning normally. The mean gradient is 7 mmHg. There is no aortic valve regurgitation. The bioprosthetic valve is well seated without any abnormal rocking motion Mitral Valve There is moderate anterior and posterior mitral leaflet thickening. There is moderate mitral annular calcification. There is mild mitral valve regurgitation. There is no mitral valve stenosis. Pulmonic Valve The pulmonic valve is likely normal. There is trace pulmonic valve regurgitation. Tricuspid Valve Normal tricuspid valve structure. There is mild tricuspid valve regurgitation. The right ventricular systolic pressure is normal. The right ventricular systolic pressure is 28 mmHg. Normal right atrial pressure. There is no evidence of pulmonary hypertension. Great Vessels The pulmonary artery was not well visualized. There is mild dilatation of the ascending aorta measuring 4.00 cm. Venous The inferior vena cava is normal in size and collapses greater than 50% with inspiration. Pericardium/Pleural There is no evidence of pericardial effusion. Prior Study Comparison Changes noted compared to prior study dated: 04/28/2023. Normally functioning bioprosthetic aortic valve is now present in place of severe [place] aortic stenosis Measurements 2D Linear Measurements IVSd: 1.76 0.6-0.9/0.6-1.0 cm LVIDd: 3.57 3.9-5.3/4.2-5.9 cm LVIDd Index: 1.91 2.4-3.2/2.2-3.1 cm/m2 LVIDs: 2.55 2.0-3.6 cm LVPWd: 1.06 0.7-1.1 cm LA Diam: 4.50 2.7-3.8/3.0-4.0 cm LAIDs Index: 2.41 1.5-2.3 cm/m2 LV Mass: 224.03 67-162/88-224 g LV Mass Index: 119.80 43-95/49-115 g/m2 LVOT Diam: 2.30 3.0+(-)1.3 cm 2D Systolic Function EF 4C: 56.60 >55% EF 2C: 56.20 >55% EF BiP: 56.00 >55% Mitral Valve MV VTI: 0.35 MV Pk Oscar: 1.42 MV Mn Oscar: 0.77 MV Pk Grad: 8.00 MV Mn Grad: 3.00 MV Pk E: 0.89 MV PK A: 1.24 MV Decel Time: 213.00 E/A: 0.70 E'Lateral: 5.00 E'Medial: 4.35 E/E' Med: 20.40 E/E' Lat: 17.80 PHT: 62.00 MVA PHT: 3.55 MVA Continuity: 2.59 Decel Carson: 4.17 Aortic Valve AoV Pk Oscar: 1.81 AoV Mn Oscar: 1.27 AoV VTI: 0.36 AoV Pk Grad: 13.00 Aov Mn Grad: 7.00 IZZY Cont.VTI: 2.51 LVOT LVOT Pk Oscar: 1.04 LVOT Mn Oscar: 0.74 LVOT VTI: 0.22 LVOT Pk Grad: 4.00 LVOT Mn Grad: 3.00 LVOT Diam: 2.30 LVOT Area: 4.15 Diastolic Function MV Pk E: 0.89 MV Pk A: 1.24 E/A: 0.70 E'Medial: 4.35 E/E' Med: 20.40 E' Laterial: 5.00 E/E' Lat: 17.80 Right Ventricle TAPSE (mm): 14.80 TVS' Oscar: 9.25 Tricuspid Valve TR Pk Oscar: 2.51 TR Pk Grad: 25.00 RA Press: 3.00 RVSP: 28.00 Great Vessels Aorta Sinus of Valsalva: 3.71 2.0-3.5 cm Ao Asc: 4.00 2.1-3.4 cm Updated in Other Vendor System with Status of Final Silas Campos MD electronically signed on 04/04/2024 1:27:31 PM with status of Final
== END ==
LOC: HO.CARD 09:46
PROVIDERS: PCP Internal Medicine; Visit Provider Internal Medicine Cardiovascular Disease
DX: Z95.4 Presence of other heart-valve replacement (principal)
CPT/HCPCS: 93306

== ENCOUNTER → 2024-04-04 09:53 | Outpatient (BNV) | payer MEDICARE, SELFPAY | PROVIDERS: PCP Internal Medicine; Visit Provider Internal Medicine Cardiovascular Disease | DX: I34.0 Nonrheumatic mitral (valve) insufficiency (principal); Z95.3 Presence of xenogenic heart valve | CPT/HCPCS: 93306 ==

== ENCOUNTER 2024-11-13 10:35 | Emergency (ER) | payer MEDICARE, SELFPAY ==
--- NOTE | ~2024-11-13 | XR_ITS ---
EXAMINATION: XR LEFT FOOT XR LEFT HAND XR LEFT ELBOW XR RIGHT ELBOW CLINICAL INFORMATION: Pain, injury bilateral elbows, left hand, left foot. COMPARISON: Left humerus of 05/18/2020. TECHNIQUE: 3 views left foot, left hand, left elbow, right elbow. FINDINGS: LEFT FOOT: Diffuse demineralization. Vascular calcifications. Mild degenerative changes in the tarsometatarsal and interphalangeal joints. Mild metatarsus adductus, hallux valgus. LEFT HAND: Diffuse demineralization. Moderate degenerative changes in the first carpometacarpal joint with joint space narrowing and hypertrophic change. Minimal degenerative changes in interphalangeal joints, most notable in the first IP joint. Moderate degenerative changes in the first metacarpophalangeal joint. LEFT ELBOW: Diffuse demineralization. Dense 5 mm calcification with tiny adjacent calcifications in the soft tissues anterior to the proximal forearm. Alignment maintained. Joint effusion. Advanced degenerative changes in the joints of the elbow with subchondral sclerosis, narrowing and hypertrophic change. RIGHT ELBOW: Diffuse demineralization. Sclerotic focus overlying the left ulna, possibly representing a bone island. Alignment maintained. Joint spaces preserved. XR/XR elbow RT min 3V IMPRESSION: 1. Advanced degenerative changes left elbow. 2. Moderate degenerative changes left first carpometacarpal joint. 3. Mild degenerative changes left foot. 4. Diffuse demineralization. 5. Calcifications in the soft tissues adjacent to the bilateral elbows, as detailed above. This study was presented today November 13, 2024 for interpretation. Stat results provided at this time as requested by referring provider. Electronically signed by: Jacqueline Christiansen MD 11/13/2024 12:04 PM [facility]
--- NOTE | ~2024-11-13 | CT_ITS ---
EXAMINATION: CT HEAD WITHOUT CONTRAST CLINICAL INFORMATION: Fall. Pain . The patient is on anticoagulation COMPARISON: None available. TECHNIQUE: Contiguous axial imaging was performed from the skull base to vertex without intravenous administration of contrast. This CT examination was performed using dose optimization techniques as appropriate, variously including the following: *Automated exposure control *Adjustment of mA and/or kV according to patient size (this includes techniques or standardized protocols for targeted exams where dose is matched to indication/reason for exam; i.e. extremities or head) *Use of iterative reconstruction technique DLP: 659 mGy-cm FINDINGS: There is prominence to the sulci and ventricles with extensive deep white matter gliosis all compatible with involutional change. No intra or extra-axial fluid collection, hemorrhage, mass, or mass effect. Vascular calcifications are seen in the vicinity of the carotid siphons. There is mucoperiosteal thickening in the maxillary sinuses. Calvarium intact. CT/CT head/brain wo IV con IMPRESSION: Chronic changes noted. No acute intracranial abnormality. Electronically signed by: Jerry Pena MD 11/13/2024 04:47 PM [facility]
--- NOTE | ~2024-11-13 | XR_ITS ---
EXAMINATION: XR LEFT FOOT XR LEFT HAND XR LEFT ELBOW XR RIGHT ELBOW CLINICAL INFORMATION: Pain, injury bilateral elbows, left hand, left foot. COMPARISON: Left humerus of 05/18/2020. TECHNIQUE: 3 views left foot, left hand, left elbow, right elbow. FINDINGS: LEFT FOOT: Diffuse demineralization. Vascular calcifications. Mild degenerative changes in the tarsometatarsal and interphalangeal joints. Mild metatarsus adductus, hallux valgus. LEFT HAND: Diffuse demineralization. Moderate degenerative changes in the first carpometacarpal joint with joint space narrowing and hypertrophic change. Minimal degenerative changes in interphalangeal joints, most notable in the first IP joint. Moderate degenerative changes in the first metacarpophalangeal joint. LEFT ELBOW: Diffuse demineralization. Dense 5 mm calcification with tiny adjacent calcifications in the soft tissues anterior to the proximal forearm. Alignment maintained. Joint effusion. Advanced degenerative changes in the joints of the elbow with subchondral sclerosis, narrowing and hypertrophic change. RIGHT ELBOW: Diffuse demineralization. Sclerotic focus overlying the left ulna, possibly representing a bone island. Alignment maintained. Joint spaces preserved. XR/XR foot LT min 3V IMPRESSION: 1. Advanced degenerative changes left elbow. 2. Moderate degenerative changes left first carpometacarpal joint. 3. Mild degenerative changes left foot. 4. Diffuse demineralization. 5. Calcifications in the soft tissues adjacent to the bilateral elbows, as detailed above. This study was presented today November 13, 2024 for interpretation. Stat results provided at this time as requested by referring provider. Electronically signed by: Jacqueline Christiansen MD 11/13/2024 12:04 PM [facility]
--- NOTE | ~2024-11-13 | XR_ITS ---
EXAMINATION: XR LEFT FOOT XR LEFT HAND XR LEFT ELBOW XR RIGHT ELBOW CLINICAL INFORMATION: Pain, injury bilateral elbows, left hand, left foot. COMPARISON: Left humerus of 05/18/2020. TECHNIQUE: 3 views left foot, left hand, left elbow, right elbow. FINDINGS: LEFT FOOT: Diffuse demineralization. Vascular calcifications. Mild degenerative changes in the tarsometatarsal and interphalangeal joints. Mild metatarsus adductus, hallux valgus. LEFT HAND: Diffuse demineralization. Moderate degenerative changes in the first carpometacarpal joint with joint space narrowing and hypertrophic change. Minimal degenerative changes in interphalangeal joints, most notable in the first IP joint. Moderate degenerative changes in the first metacarpophalangeal joint. LEFT ELBOW: Diffuse demineralization. Dense 5 mm calcification with tiny adjacent calcifications in the soft tissues anterior to the proximal forearm. Alignment maintained. Joint effusion. Advanced degenerative changes in the joints of the elbow with subchondral sclerosis, narrowing and hypertrophic change. RIGHT ELBOW: Diffuse demineralization. Sclerotic focus overlying the left ulna, possibly representing a bone island. Alignment maintained. Joint spaces preserved. XR/XR hand LT min 3V IMPRESSION: 1. Advanced degenerative changes left elbow. 2. Moderate degenerative changes left first carpometacarpal joint. 3. Mild degenerative changes left foot. 4. Diffuse demineralization. 5. Calcifications in the soft tissues adjacent to the bilateral elbows, as detailed above. This study was presented today November 13, 2024 for interpretation. Stat results provided at this time as requested by referring provider. Electronically signed by: Jacqueline Christiansen MD 11/13/2024 12:04 PM [facility]
--- NOTE | ~2024-11-13 | CT_ITS ---
EXAMINATION: CT MAXILLOFACIAL WITHOUT CONTRAST CLINICAL INFORMATION: Pain. Injury. Patient on anticoagulation. COMPARISON: CT head from 11/13/2024. TECHNIQUE: Multidetector helical imaging was performed in the axial plane with generation of coronal and sagittal reformatted images. This CT examination was performed using dose optimization techniques as appropriate, variously including the following: *Automated exposure control *Adjustment of mA and/or kV according to patient size (this includes techniques or standardized protocols for targeted exams where dose is matched to indication/reason for exam; i.e. extremities or head) *Use of iterative reconstruction technique DLP: 1255 mGy-cm FINDINGS: FRONTAL SINUSES AND DRAINAGE PATHWAYS: Minimal mucosal thickening of the frontal sinuses. The frontoethmoidal recesses are patent. MAXILLARY SINUSES AND DRAINAGE PATHWAYS: Moderate mucosal thickening of the right maxillary sinus. Mild mucosal thickening of the left maxillary sinus. The maxillary ostia and infundibula are patent. ETHMOID SINUSES: Mild mucosal thickening of the ethmoid air cells. The ethmoid roofs appear symmetric and intact. SPHENOID SINUS AND DRAINAGE PATHWAYS: Minimal mucosal thickening of the sphenoid sinus. The sphenoethmoidal recesses are patent. The carotid canals are normally covered by bone. NASAL PASSAGE: The nasal passages are clear. The osseous nasal septum remains midline. ORBITS: Normal appearance of the osseous orbits. The lamina papyracea are intact. No significant preseptal or retrobulbar edema. Bilateral lens extractions. Otherwise, normal appearance of the globes. Normal symmetric appearance of the extraocular musculature. No abnormalities of the intraconal or extraconal adipose tissue. Normal appearance of the optic nerve sheaths. Normal appearance of the lacrimal glands. No orbital fluid collections. No abnormalities of the orbital apices. TEMPOROMANDIBULAR JOINTS: The temporomandibular joints remain well aligned. Normal appearance of the temporomandibular joints. ADDITIONAL RELEVANT FINDINGS: No evidence of maxillofacial bone fractures. The zygomatic arches remain intact. No nasal bone fracture. No evidence of mandibular or maxillary fracture. No significant maxillary/mandibular periapical disease. The visualized mastoid air cells and middle ear cavities remain well aerated. Limited evaluation of the intracranial structures without significant abnormalities. Calcific atherosclerotic disease of the intracranial internal carotid and vertebral arteries. No hyperdense vessel sign. The premaxillary, retromaxillary, pterygopalatine fossa, temporal fossa, and parapharyngeal adipose tissue is maintained. No demonstrated soft tissue abnormalities within the intrinsic tissues of the tongue. Multifocal odontogenic enamel erosions and periapical lucencies. CT/CT facial bones wo IV con IMPRESSION: 1. No evidence of acute fracture of the maxillofacial bones. 2. 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 3. Multifocal odontogenic disease. Electronically signed by: Mike Morejon DO 11/13/2024 05:29 PM EST
--- NOTE | ~2024-11-13 | XR_ITS ---
EXAMINATION: XR LEFT FOOT XR LEFT HAND XR LEFT ELBOW XR RIGHT ELBOW CLINICAL INFORMATION: Pain, injury bilateral elbows, left hand, left foot. COMPARISON: Left humerus of 05/18/2020. TECHNIQUE: 3 views left foot, left hand, left elbow, right elbow. FINDINGS: LEFT FOOT: Diffuse demineralization. Vascular calcifications. Mild degenerative changes in the tarsometatarsal and interphalangeal joints. Mild metatarsus adductus, hallux valgus. LEFT HAND: Diffuse demineralization. Moderate degenerative changes in the first carpometacarpal joint with joint space narrowing and hypertrophic change. Minimal degenerative changes in interphalangeal joints, most notable in the first IP joint. Moderate degenerative changes in the first metacarpophalangeal joint. LEFT ELBOW: Diffuse demineralization. Dense 5 mm calcification with tiny adjacent calcifications in the soft tissues anterior to the proximal forearm. Alignment maintained. Joint effusion. Advanced degenerative changes in the joints of the elbow with subchondral sclerosis, narrowing and hypertrophic change. RIGHT ELBOW: Diffuse demineralization. Sclerotic focus overlying the left ulna, possibly representing a bone island. Alignment maintained. Joint spaces preserved. XR/XR elbow LT min 3V IMPRESSION: 1. Advanced degenerative changes left elbow. 2. Moderate degenerative changes left first carpometacarpal joint. 3. Mild degenerative changes left foot. 4. Diffuse demineralization. 5. Calcifications in the soft tissues adjacent to the bilateral elbows, as detailed above. This study was presented today November 13, 2024 for interpretation. Stat results provided at this time as requested by referring provider. Electronically signed by: Jacqueline Christiansen MD 11/13/2024 12:04 PM [facility]
--- NOTE | ~2024-11-13 | CT_ITS ---
EXAMINATION: CT CERVICAL SPINE WITHOUT CONTRAST CLINICAL INFORMATION: Pain after falling. The patient is on anticoagulation COMPARISON: None available. TECHNIQUE: Thin section axial imaging with sagittal and coronal reformats This CT examination was performed using dose optimization techniques as appropriate, variously including the following: *Automated exposure control *Adjustment of mA and/or kV according to patient size (this includes techniques or standardized protocols for targeted exams where dose is matched to indication/reason for exam; i.e. extremities or head) *Use of iterative reconstruction technique DLP: 337 mGy-cm FINDINGS: Multilevel degenerative change seen throughout the C-spine with disc space narrowing and marginal spurring but no fracture or destructive process or encroachment on the spinal canal. The prevertebral soft tissues are normal. Extensive atherosclerotic calcification is seen in the superior mediastinum and in the right and left common carotid bulbs. CT/CT cervical spine wo IV con IMPRESSION: Multilevel degenerative change. No fracture. Fleischner guidelines were followed. Electronically signed by: Jerry Pena MD 11/13/2024 12:26 PM [facility]
[2024-11-13 10:50] VITALS: BP 173/79; PULSE 71; RESP 15; TEMP 36.6; O2SAT 99
[2024-11-13 10:52] VITALS: BP 122/84; PULSE 78; O2SAT 96
[2024-11-13 11:06] VITALS: BP 173/79; PULSE 73; RESP 16; TEMP 37; O2SAT 98; BMI 27.5
--- NOTE | 2024-11-13 11:08 | ED_ITS ---
HPI - General Adult General Chief complaint: Fall Stated complaint: FALL,FACE PAIN,LUE/L FOOT LAC PER EMS Time Seen by Provider: 11/13/24 11:08 Source: patient and EMS Mode of arrival: EMS Limitations: no limitations History of Present Illness ED Provider: Maria Teresa Wheatley PA-C HPI narrative: Patient is an 84 year old assigned male at with a history of CAD, AAA, aortic stenosis, seizures, PVD, and s/p TAVR on anticoags presenting to the emergency department today with a left heel laceration, left hand skin tear, and left forearm skin tear, right elbow swelling, and a nose bleed after a fall. Patient states that his left heel got caught in a screen door and caused him to fall forward. Patient denies hitting his head or any loss of consciousness. Patient denies any dizziness, lightheadedness, abdominal pain, nausea, vomiting, fever, chills, blurry vision, double vision, loss of vision, chest pain, difficulty breathing, shortness of breath, back pain, night sweats, pain with urination, increased urinary frequency, increased urinary urgency, blood in his urine or stool, syncope or a near syncopal episode, bowel incontinence, bladder incontinence, or any other complaints at this time. Onset (ago): hour(s) Relieving factors: none Exacerbating factors: none Associated symptoms: denies other symptoms Treatments prior to arrival: none Related Data Home Medications ?Medication ?Instructions ?Recorded ?Confirmed atorvastatin 80 mg tablet 80 mg PO DAILY 11/05/20 03/27/24 cilostazol 100 mg tablet 100 mg PO BID@0900,1400 11/05/20 03/27/24 famotidine 20 mg tablet 20 mg PO BID@0900,1400 gi upset 11/05/20 03/27/24 ibuprofen 800 mg tablet 800 mg PO BID PRN Pain 11/05/20 03/27/24 metoprolol tartrate 50 mg tablet 50 mg PO BID@0900,1400 11/05/20 03/27/24 ascorbate calcium (vitamin C) 500 500 mg PO DAILY 05/10/21 03/27/24 mg tablet lisinopril 20 mg tablet 10 mg PO DAILY 12/19/23 03/27/24 clopidogrel 75 mg tablet 75 mg PO DAILY 03/27/24 03/27/24 levetiracetam 250 mg tablet 250 mg PO BID 03/27/24 03/27/24 Previous Rx's ?Medication ?Instructions ?Recorded ezetimibe 10 mg tablet 10 mg PO DAILY #90 tabs 10/16/24 amoxicillin 875 mg-potassium 1 tab PO BID 10 days #20 tabs 11/13/24 clavulanate 125 mg tablet Allergies Allergy/AdvReac Type Severity Reaction Status Date / Time pollen extracts [POLLEN] Allergy Mild RUNNY NOSE Verified 11/13/24 11:08 Review of Systems Constitutional: Constitutional: Reports no additional constitutional complaints, Denies chills, Denies fever(s) and Denies night sweats Eyes: Eyes: Reports no additional eye complaints, Denies blurry vision, Denies change in vision, Denies diplopia, Denies eye discharge, Denies loss of vision and Denies eye pain ENT: Denies dizziness and Reports epistaxis (now resolved) Cardiovascular: Cardiovascular: Reports no additional cardiovascular complaints, Denies chest pain, Denies lightheadedness, Denies Loss of Consciousness and Denies dyspnea Respiratory: Respiratory: Reports no additional respiratory complaints and Denies dyspnea Gastrointestinal: Gastrointestinal: Reports no additional gastrointestinal complaints, Denies abdominal pain, Denies melena, Denies hematochezia, Denies ch clementine in bowel habits and Denies change in stool character Genitourinary: Genitourinary: Reports no additional male genitourinary complaints, Denies hematuria, Denies oliguria, Denies difficulty urinating, Denies dysuria, Denies urinary frequency, Denies urinary hesitancy, Denies urinary incontinence and Denies urinary urgency Musculoskeletal: Musculoskeletal: Reports no additional musculoskeletal complaints, Denies numbness and Denies tingling Comments: left heel laceration left forearm skin tear left hand skin tear right elbow bruising Neurologic: Denies dizziness, Denies loss of vision, Denies numbness and Denies tingling Psychiatric: Psychiatric: Reports no additional psychiatric complaints Endocrine: Endocrine: Reports no additional endocrine complaints Hematologic/Lymphatic: Hematologic/Lymphatic: Reports no additional hematolog ic/lymphatic complaints Allergic/Immunologic: Allergic/Immunologic: Reports no additional allergic/immunologic complaints PMFSH Past Medical History Attestation statement: The following information was validated with the patient. 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 Social History Social History Household Members: None Housing: Condominium Do you presently have visiting nurse or other home services: No Patient Tobacco Use Status: Never used Tobacco Advance Directives: No Advance Directives Information Provided: Yes service: No Physical Exam ED Vital Signs: Vital Signs - 24 hr 11/13/24 10:50 11/13/24 11:06 Temperature 97.9 F 98.6 F Pulse Rate 71 73 Respiratory Rate 15 16 Blood Pressure 173/79 H 173/79 H Pulse Oximetry 99 98 Oxygen Delivery Method Room Air Room Air BMI result Body Mass Index 27.5 Const General: cooperative, no acute distress, alert and awake Nutritional Appearance: well nourished Orientation/consciousness: patient oriented x3 Limitations: no limitations HENMT Head: Yes normal to inspection and Yes atraumatic Ears: hearing grossly normal bilaterally and external ears normal General nose exam: no nasal discharge noted and Other nasal findings present (dried blood present to the outer right nostril - no active bleeding) Face and sinus: Yes normal facial exam, No abrasion and No laceration Mouth: Normal oral and palatal mucosa present, no drooling and no muffled voice Eyes General: appearance normal, both eyes and all related structures Periorbital: periorbital findings normal Eyelids: Yes eyelids normal Conjunctivae: conjunctivae normal Pupils: Equal, round and reactive pupils present EOM: EOMs intact bilaterally Neck Neck: Yes normal visual inspection, Yes full ROM and Yes no lymphadenopathy Chest Chest palpation & inspection: normal inspection of the chest Resp Effort & Inspection: normal respiratory effort and able to speak in complete sentences GI Inspection: Yes normal to inspection Neuro General: patient oriented x3 and moves all extremities Cranial nerves: Yes Equal, round and reactive pupils present Cognition (Neuro): normal cognition Extrem Other: right elbow hematoma - no active bleeding left dorsal hand skin tear left volar forearm skin tear left posterior heel laceration General: Yes full ROM and Yes capillary refill normal Psych Appearance: grossly normal Mental Status: mental status grossly normal Affect: normal affect Attitude: cooperative Thought process: Normal thought process present Thought content: Normal thought content present Insight: Good insight present (Psych) Procedures Laceration left heel: Side (If applicable): left (heel) Size (cm): 4 Description: flap Depth: simple, single layer Local Anesthetic: lidocaine 1% Amount of anesthesia used (mL): 5 Pre-repair: wound explored, irrigated extensively and deep structures intact Skin layer closed with: other (prolene) Size (cm): 5-0 Number of sutures: 4 Technique: simple, interrupted Orthopedic Splinting/Casting Injury #1: Side: left Lower Extremity Injury Location: ankle and foot Lower Extremity Immobilizer: post-op shoe Medical Decision Making Medical Decision Making MDM Narrative: Patient is an 84 year old assigned male at with a history of CAD, AAA, aortic stenosis, seizures, PVD, and s/p TAVR on anticoags presenting to the emergency department today with a left heel laceration, left hand skin tear, and left forearm skin tear, right elbow swelling, and a nose bleed after a fall. Patient's physical exam was as noted in the physical exam portion of this note. Patient's left hand and forearm skin tears are missing the associated skin and are unable to be repaired. Patient's left heel laceration was repaired, per procedure note, without incident. Patient's left foot was placed in a post op shoe to protect the left heel wound and promote healing. The flap of skin was tacked down with 4 sutures / loosely approximated given it is a high tension area. Patient had a mild pressure dressing applied to the right elbow hematoma, left forearm skin tear, left hand skin tear, and left heel wound. Patient's left elbow, right elbow, left foot, and left hand x-rays showed no acute process. Patient's CT c-spine showed no acute process. Patient's head and facial bones CTs are pending. I explained my physical exam findings as well as all test results to the patient. I answered all questions asked by the patient. Patient signed out to the evening PA pending CT reads. Differential Diagnosis Differential Diagnoses: The differential diagnosis associated with the p resentation includes Left heel laceration Left forearm skin tear Left hand skin tear Right elbow hematoma Left elbow pain Fall Left heel laceration Admission/Observation Consideration of admission/observation: Escalation of care including admission/observation considered Patient's disposition will be determined after CT of the facial bones and head is read. Independent Interpretation I performed an independent interpretation of an: Plain X-Ray and CT Scan Interpretation: My interpretation is in agreement with the radiologist's impression of these imaging studies. EXAMINATION: CT CERVICAL SPINE WITHOUT CONTRAST CLINICAL INFORMATION: Pain after falling. The patient is on anticoagulation COMPARISON: None available. TECHNIQUE: Thin section axial imaging with sagittal and coronal reformats This CT examination was performed using dose optimization techniques as appropriate, variously including the following: *Automated exposure control *Adjustment of mA and/or kV according to patient size (this includes techniques or standardized protocols for targeted exams where dose is matched to indication/reason for exam; i.e. extremities or head) *Use of iterative reconstruction technique DLP: 337 mGy-cm FINDINGS: Multilevel degenerative change seen throughout the C-spine with disc space narrowing and marginal spurring but no fracture or destructive process or encroachment on the spinal canal. The prevertebral soft tissues are normal. Extensive atherosclerotic calcification is seen in the superior mediastinum and in the right and left common carotid bulbs. CT/CT cervical spine wo IV con IMPRESSION: Multilevel degenerative change. No fracture. Fleischner guidelines were followed. Electronically signed by: Jerry Pena MD 11/13/2024 12:26 PM [facility] Dictated By: Jerry Pena MD Signed By: Electronically signed by Jerry Pena MD 11/13/24 1226 EXAMINATION: XR LEFT FOOT XR LEFT HAND XR LEFT ELBOW XR RIGHT ELBOW CLINICAL INFORMATION: Pain, injury bilateral elbows, left hand, left foot. COMPARISON: Left humerus of 05/18/2020. TECHNIQUE: 3 views left foot, left hand, left elbow, right elbow. FINDINGS: LEFT FOOT: Diffuse demineralization. Vascular calcifications. Mild degenerative changes in the tarsometatarsal and interphalangeal joints. Mild metatarsus adductus, hallux valgus. LEFT HAND: Diffuse demineralization. Moderate degenerative changes in the first carpometacarpal joint with joint space narrowing and hypertrophic change. Minimal degenerative changes in interphalangeal joints, most notable in the first IP joint. Moderate degenerative changes in the first metacarpophalangeal joint. LEFT ELBOW: Diffuse demineralization. Dense 5 mm calcification with tiny adjacent calcifications in the soft tissues anterior to the proximal forearm. Alignment maintained.Joint effusion. Advanced degenerative changes in the joints of the elbow with subchondral sclerosis, narrowing and hypertrophic change. RIGHT ELBOW: Diffuse demineralization. Sclerotic focus overlying the left ulna, possibly representing a bone island. Alignment maintained. Joint spaces preserved. XR/XR elbow LT min 3V IMPRESSION: 1. Advanced degenerative changes left elbow. 2. Moderate degenerative changes left first carpometacarpal joint. 3. Mild degenerative changes left foot. 4. Diffuse demineralization. 5. Calcifications in the soft tissues adjacent to the bilateral elbows, as detailed above. This study was presented today November 13, 2024 for interpretation. Stat results provided at this time as requested by referring provider. Electronically signed by: Jacqueline Christiansen MD 11/13/2024 12:04 PM [facility] Dictated By: Jacqueline Christiansen MD Signed By: Electronically signed by Jacqueline Christiansen MD 11/13/24 1203 Radiology Impression Discussion of test interpretation with radiology: I have reviewed the radiologist's reading. Independent Historian Clinical information obtained from an independent historian. History obtained from or confirmed by: EMS (EMS provided additional history and confirmed the history provided by the patient.) Prescription Management I considered prescription management with: Antibiotic (patient prescribed an antibiotic given the mechanism of injury.) Discharge Plan Discharge Clinical Impression: Laceration of heel, Skin tear of left hand without complication, Skin tear of forearm without complication, Hematoma of right elbow Patient Disposition: Still a Patient Instructions: Care For Your Stitches (DC), Laceration (DC), Contusion in Adults (ED), Laceration Without Closure (ED) Additional Instructions: Have your sutures (4) removed from your left heel in 7-10 days. Do NOT soak the affected area. Perform daily wound checks and dressing changes. Take your medication as prescribed. Follow up with your primary care provider and the wound center. Return to the emergency department immediately if your symptoms worsen or if you develop any dizziness, shortness of breath, difficulty breathing, chest pain, blurry vision, loss of vision, nausea, vomiting, abdominal pain, fever, chills, back pain, or any other complaints. Prescriptions: New amoxicillin-pot clavulanate 875-125 mg tablet 1 tab PO BID 10 Days Qty: 20 0RF No Action ezetimibe 10 mg tablet 10 mg PO DAILY Qty: 90 3RF ascorbate calcium (vitamin C) 500 mg tablet 500 mg PO DAILY ibuprofen 800 mg tablet 800 mg PO BID PRN (Reason: Pain) atorvastatin 80 mg tablet 80 mg PO DAILY famotidine 20 mg tablet 20 mg PO BID@0900,1400 metoprolol tartrate 50 mg tablet 50 mg PO BID@0900,1400 cilostazol 100 mg tablet 100 mg PO BID@0900,1400 lisinopril 20 mg tablet 10 mg PO DAILY levetiracetam 250 mg tablet 250 mg PO BID clopidogrel 75 mg tablet 75 mg PO DAILY Referrals: Oleg Latham [Other] [facility] [place] [facility] [Provider Group] (Call to establish and follow up with the wound center (to ensure your wounds are healing well). ) Print Language: Croatian
--- OUTSIDE RECORDS SUMMARY | 2024-11-13 11:39 | XMS_ITS | Continuity of Care Document ---
Author Organization [facility] Address [address] [place] [id number] Care Team Providers Care Pillow Agent Name Role Phone Oleg Latham MD Primary Care Physician [phone] Encounter [facility] [id number] Date(s): 10/30/24 - 11/06/24 [facility] [address] [place] [id number] Encounter Diagnosis H/O endovascular stent graft for abdominal aortic aneurysm(Discharge Diagnosis) - 10/30/24 Follow-up exam(Discharge Diagnosis) - 10/30/24 Attending Physician: Champ Dominguez MD Admitting Physician: Champ Dominguez MD Encounter Type: Office Visit Allergies, Adverse Reactions, Alerts No Known Allergies Immunizations Given and Recorded Vaccine Date Status Refusal Reason SARS-CoV-2 (COVID-19) mRNA BNT-162b2 vac 01/21/21 Given Medications atorvastatin 80 mg oral tablet 1 tablet = 80 mg, By Mouth, Daily, # 30 tablet, 5 Refills, Maintenance, 09/22/23 9:03:00 AM EDT, Tablet, Partial fill upon patient request if the prescription is for a schedule II opioid drug. Start Date: 09/22/23 Status: Ordered Quantity: 30.0 Unit: tablet Repeat number: 1 cefuroxime 250 mg oral tablet 2 tablet = 500 mg, By Mouth, Every 12 hours, started 02/27/24 finishing 03/07/24, 0 Refills, Maintenance, 03/06/24 11:05:00 AM EDT, Partial fill upon patient request if the prescription is for a scheduleII opioid drug. Start Date: 03/06/24 Status: Ordered Repeat number: 1 cetirizine 10 mg oral tablet See Instructions, 1 tablet of Cetirizine 10mg by Mouth [address] and 1 tablet of Cetirizine 10mg by mouth [address] # 2 tablet, 0 Refills, Maintenance, 10/30/24 10:15:00 AM EST, [facility] #[id number], Partial fill upon patient request if the prescription is for a schedule II opioid drug., 170.18, cm, 10/30/24 9:10:00 EST, Height, 76.36, kg, 03/25/24 9:27:00 EDT, Dry Weight Start Date: 10/30/24 Status: Ordered Quantity: 2.0 Unit: tablet Repeat number: 1 cilostazol 100 mg oral tablet 1 tablet = 100 mg, By Mouth, 2 times a day, 0 Refills, Maintenance, 09/22/23 9:03:00 AM EDT, Partial fill upon patient request if the prescription is for a schedule II opioid drug. Start Date: 09/22/23 Status: Ordered Repeat number: 1 clopidogrel 75 mg oral tablet 75 mg, By Mouth, Daily, # 30 tablet, Refills 0, Tot. Refills 0, Maintenance, 03/13/24 10:05:00 AM EDT, Route to Pharmacy Electronically, [facility], Partial fill upon patient request if the prescription is for a schedule II opioid drug., 170.18, cm, 03/13/24 7:47:00 EDT, Height, 75.9, kg, 03/11/24 12:32:00 EDT, Dry Weight Start Date: 03/13/24 Status: Ordered Quantity: 30.0 Unit: tablet Repeat number: 1 ezetimibe 10 mg oral tablet 1 tablet = 10 mg, By Mouth, Daily, # 30 tablet, 0 Refills, Maintenance, 09/22/23 9:03:00 AM EDT, Tablet, Partial fill upon patient request if the prescription is for a schedule II opioid drug. Start Date: 09/22/23 Status: Ordered Quantity: 30.0 Unit: tablet Repeat number: 1 levETIRAcetam 250 mg oral tablet 1 tablet = 250 mg, By Mouth, 2 times a day, 0 Refills, Maintenance, 09/22/23 9:03:00 AM EDT, Partial fill upon patient request if the prescription is for a schedule II opioid drug. Start Date: 09/22/23 Status: Ordered Repeat number: 1 lisinopril 20 mg oral tablet 0.5 tablet = 10 mg, By Mouth, Daily, 0 Refills, Maintenance, 01/27/12 11:41:35 AM EST Start Date: 01/27/12 Status: Ordered Repeat number: 1 Medrol 32 mg oral tablet See Instructions, 1 tablet of Medrol 32mg by Mouth [address] and 1 tablet of Medrol 32mg by mouth [address] # 2 tablet, 0 Refills, Maintenance, 10/30/24 10:20:00 AM EST, [id number], Partial fill upon patient request if the prescription is for a schedule II opioid drug., 170.18, cm, 10/30/24 9:10:00 EST, Height, 76.36, kg, 03/25/24 9:27:00 EDT, Dry Weight Start Date: 10/30/24 Status: Ordered Quantity: 2.0 Unit: tablet Repeat number: 1 metoprolol 50 mg oral tablet 1 tablet = 50 mg, By Mouth, 2 times a day, # 60 tablet, 2 Refills, Maintenance, 02/05/12 9:24:33 AM EDT, Tablet Start Date: 02/05/12 Status: Ordered Quantity: 60.0 Unit: tablet Repeat number: 3 omeprazole 20 mg oral enteric coated capsule 1 capsule = 20 mg, By Mouth, Daily, 0 Refills, Maintenance, 01/27/12 11:41:12 AM EST Start Date: 01/27/12 Status: Ordered Repeat number: 1 Vitamin C 0 Refills, Maintenance, 01/27/12 11:42:41 AM EST Start Date: 01/27/12 Status: Ordered Repeat number: 1 Problem List Condition Confirmation Course Effective Dates Status H ealth Status Informant AAA (abdominal aortic aneurysm) Confirmed Active 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 Active S/P TAVR (transcatheter aortic valve replacement) Confirmed Active S/P CABG x 2 Confirmed Active Hyperlipidemia Confirmed Active Hypertension Confirmed Active Severe aortic stenosis Confirmed Active Diagnosis Diagnosis Type Effective Dates Health Status Clinical Service Informant H/O endovascular stent graft for abdominal aortic aneurysm Discharge Diagnosis 10/30/24 Follow-up exam Discharge Diagnosis 10/30/24 Vital Signs Most recent to oldest [Reference Range]: 1 Height 170.18 cm (10/30/24 9:10 AM) Weight 77.11 kg (10/30/24 9:10 AM) Oxygen Saturation [94-100 %] 99 % (10/30/24 9:10 AM) Pulse Rate [55-90 bpm] 71 bpm (10/30/24 9:10 AM) Body Mass Index [18.5-24.99 kg/m2] 26.63 kg/m2 *H* (10/30/24 9:10 AM) Blood Pressure [90-138/55-84 mm Hg] 140/ 62mm Hg *H* (10/30/24 9:10 AM) Blood pressure sites Arm, left (10/30/24 9:10 AM) Weight Obtained Via Patient/family state d (10/30/24 9:10 AM) Social History Social History Type Response Smoking Status Former smoker, quit more than 30 days ago entered on: 09/22/23 Sex Sex Representation Male (finding) Note * Loly Butts: PERFORM Event Display: Patient Education/Instruction Authored Date: [id number] Ambulatory Adult Visit Summary [facility] [address] [facility] [address] [place] [address] Name: ADELA ALMENDAREZ : 1940?? Visit: 10/30/2024 08:38?? Ambulatory Visit Instructions ?? Your Care Team Primary Care Provider Oleg Latham MD? This Visit Provider Champ Dominguez MD Your Diagnosis H/O endovascular stent graft for abdominal aortic aneurysm Follow-up exam Vitals Signs Pulse Rate: 71 bpm Height: 170.18 cm Systolic Blood Pressure:??140 mm Hg??High Weight: 77.11 kg Diastolic Blood Pressure: 62 mm Hg Body Mass Index:??26.63 kg/m2??High Oxygen Saturation: 99 % Body surface area: 1.91 What to do next Future Orders CT Angio Abdomen and Pelvis, Routine, Reason for Exam: Aneurysm, IV Contrast Only, Once, *Est. 10/30/24 CBC - Once, *Est. 11/13/23, Future Order?? Electrolytes - Once, *Est. 11/13/23, Single or Recurring Future Order?? PTT - Once, *Est. 11/13/23, Single or Recurring Future Order?? Type and Screen - Once, *Est. 11/13/23, Single or Recurring Future Order?? BUN - Once, *Est. 11/13/23, Single or Recurring Future Order?? Creatinine - Once, *Est. 11/13/23, Future Order?? BUN - Routine, Once, 10/30/24 9:35:00 EST, Future Order, [facility], Blood?? Creatinine - Routine, Once, 10/30/24 9:35:00 EST, Future Order, [facility], Blood?? Medications The list below reflects the information in our records and provided by you today along with any changes made during this visit. Please continue your medications until treatment is completed or stopped by your provider. If this is different from the information you have or there are other questions,please contact the prescribing provider. What How Much When Instructions Unchanged Ascorbic Acid (Vitamin C) Unchanged Atorvastatin (atorvastatin 80 mg oral tablet) 1 tab(s) Oral Daily Unchanged Cefuroxime (cefuroxime 250 mg oral tablet) 2 tab(s) Oral Every 12 hours started finishing ?? Unchanged Cilostazol (cilostazol 100 mg oral tablet) 1 tab(s) Oral Twice a day Unchanged Clopidogrel (clopidogrel 75 mg oral tablet) 75 Milligram Oral Daily Unchanged Ezetimibe (ezetimibe 10 mg oral tablet) 1 tab(s) Oral Daily Unchanged levETIRAcetam (levETIRAcetam 250 mg oral tablet) 1 tab(s) Oral Twice a day Unchanged Lisinopril (lisinopril 20 mg oral tablet) 0.5 tab(s) Oral Daily Unchanged Metoprolol (metoprolol 50 mg oral tablet) 1 tab(s) Oral Twice a day Unchanged Omeprazole (omeprazole 20 mg oral enteric coated capsule) 1 capsule Oral Daily Test Performed Below is a partial list of the tests performed during your Visit. You may have had other tests and procedures not included in this list. Please discuss all test results with your provider. BUN?-- Results Pending -- Creatinine?-- Results Pending -- Medications and Immunizations Administered Medications Given During Visit No medications given during this visit.?? Allergies (NKA means No Known Allergies) NKA Common Emergency Awareness Tips IS IT A STROKE? Act FAST and Check for these signs: FACE Does the face look uneven? ARM Does one arm drift down? SPEECH Does their speech sound strange? TIME Call at any sign of stroke ?? Heart Attack Signs Chest discomfort: Most heart attacks involve discomfort in the center of the chest and lasts more than a few minutes, or goes away and comes back. It can feel like uncomfortable pressure, squeezing, fullness or pain. Discomfort in upper body: Symptoms can include pain or discomfort in one or both arms, back, neck, jaw or stomach. Shortness of breath: With or without discomfort. Other signs: Breaking out in a cold sweat, nausea, or lightheaded. Remember, MINUTES DO MATTER. If you experience any of these heart attack warning signs, call to get immediate medical attention! ?? Smoking can increase your chances of developing chronic health problems and can cause harmful effects to other family members in your house. If you smoke, you are strongly encouraged to quit. Please call [employer] [facility] at [phone] or [phone] ([phone]) or log in to [email or web address] for referrals to smoking cessation programs. ?? The National Suicide Prevention Hotline is available 19/06 if you or someone you know needs to find a reason to keep living. By calling 3-947-528-ADOR (9266) you'll be connected to a skilled, trained counselor at a crisis center in your area. [facility] [employer] Portal You can view and manage your care through the patient portal or by using a health care rhiannon of your choosing. [employer] is a website that allows you to securely view your medical information including your hospital discharge summary, office visit summaries, medications and follow-up visits. You can also request appointments, renew medications, and request access to your medical information using a health care rhiannon of your choosing, or just ask a question. You can enroll at [email or web address] or register during your next office visit. [facility], in keeping with [facility] guidance, no longer requires face masks for staff, patientsor visitors in most situations. Similiar to time spent indoors at other locations, there is the chance that you were exposed to repiratory viruses during your time with us (such as flu or COVID-19). If you develop symptoms concerning for a viral respiratory infection, please seek testing (and treatment if indicated) from your medical provider or home test kit. ?? Disclaimer: The information provided is of a general nature and is intended to be used in conjunction with the recommendations and advice of your health care practitioner. Every effort has been made to ensure that the information provided is accurate and complete at the time it is provided to you however, as your needs change, or, as new information becomes available, different or additional instructions may be required. ?? If you have questions, please consult with your primary care provider or pharmacist, as appropriate. This information is not intended to serve as substitution for assessment and evaluation by a qualified health care provider. If you do not have a primary care provider, you may find a [facility] provider by calling [facility] at [phone]. Patient Care team information Care Team Personnel Name: Leeann Stephenson RN Position: [facility] HBO Wound Member Role: Primary Care Nurse Name: Margoth Reyes RN Position: [facility] RN Member Role: Primary Care Nurse Name: Oleg Latham MD Position: [facility] Outreach Member Role: PCP Address: [address] [place] [address] [address]leg [place], [place] [address] Telecom: Name: Kobi Galarza RN Position: [facility] RN Member Role: Primary Care Nurse Name: Mai Da Silva RN Position: [facility] RN Member Role: Primary Care Nurse Care Team Related Persons Name: URI KINGSLEY Name: NAN KINGSLEY Insurance Providers Guarantor name: ADELA ALMENDAREZ Health Plan Information #: 1 Payer: MEDICARE PART B OUTPT Member Number: [id number] Policy Number: NA Group Number: NA Health Plan Information #: 2 Payer: MEDEX Member Number: [id number] Policy Number: NA Group Number: NA
[2024-11-13 16:52] VITALS: BP 139/71; PULSE 103; RESP 18; TEMP 36.4; O2SAT 98
[2024-11-13 17:05] VITALS: BP 139/71; PULSE 103; RESP 18; TEMP 36.4; O2SAT 98
== END 2024-11-13 22:46 | disposition home or self-care (01) ==
PROVIDERS: Emergency Provider Emergency Medicine; PCP Internal Medicine
DX: S91.312A Laceration without foreign body, left foot, initial encounter (principal); S61.412A Laceration without foreign body of left hand, initial encounter; S50.01XA Contusion of right elbow, initial encounter; S51.812A Laceration without foreign body of left forearm, initial encounter; R51.9 Headache, unspecified; M54.2 Cervicalgia; M79.672 Pain in left foot; M25.522 Pain in left elbow; M25.521 Pain in right elbow; I25.10 Atherosclerotic heart disease of native coronary artery without angina pectoris; W01.0XXA Fall on same level from slipping, tripping and stumbling without subsequent striking against object, initial encounter; Y93.89 Activity, other specified; Y92.89 Other specified places as the place of occurrence of the external cause; Y99.8 Other external cause status; Z79.899 Other long term (current) drug therapy
CPT/HCPCS: 12042; 28515; 29515; 70450; 70486; 72125; 73080; 73130; 73630; 99284

== ENCOUNTER 2024-12-03 08:27 | Outpatient (AMB) | payer MEDICARE, SELFPAY ==
--- OUTSIDE RECORDS SUMMARY | 2024-12-03 08:38 | XMS_ITS | Continuity of Care Document ---
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 Name Role Phone Oleg Latham MD Primary Care Physician Encounter [facility] NBR [id number] Date(s): 10/15/24 - 11/14/24 [facility] [address], [place] [address] Attending Physician: Narda Medina Admitting Physician: Narda Medina Referring Physician: Narda Medina Encounter Type: Triage Allergies, Adverse Reactions, Alerts Substance Criticality Severity Reaction Reaction Severity Status Contrast Dye Active Immunizations Given and Recorded Vaccine Date Status [...] CT., # 2 tablet, 0 Refills, Maintenance, 11/12/24 10:20:00 AM EST, [facility]/pharmacy #[id number], Partial fill upon patient request if the prescription is for a schedule II opioiddrug., 170.18, cm, 10/30/24 9:10:00 EST, Height, 76.36, kg, 03/25/24 9:27:00 EDT, Dry Weight Start Date: 11/12/24 Status: Ordered Quantity: 2.0 Unit: tablet Repeat [...] 10:05:00 AM EDT, Route to Pharmacy Electronically, [facility], Partial fill upon patient [...] CT., # 2 tablet, 0 Refills, Maintenance, 11/12/24 10:20:00 AM EST, [facility]/pharmacy #[id number], Partial fill upon patient request if the prescription is for a schedule II opioid drug., 170.18, cm, 10/30/24 9:10:00 EST, Height, 76.36, kg, 03/25/24 9:27:00 EDT, Dry Weight Start Date: 11/12/24 Status: Ordered Quantity: 2.0 Unit: tablet Repeat [...] (abdominal aortic aneurysm) Confirmed Active CAD in [place] artery Confirmed Active S/P TAVR (transcatheter aortic valve replacement) Confirmed Active S/P CABG x 2 Confirmed Active Hyperlipidemia Confirmed Active Hypertension Confirmed Active Severe aortic stenosis Confirmed Active Social History Social History Type Response Smoking Status Former smoker, quit more than 30 days ago entered on: 09/22/23 Sex Sex Representation Male (finding) Patient Care team information Care Team Personnel Name: Leeann Stephenson RN Position: [facility] Wound Member Role: Primary Care Nurse Name: Margoth Reyes RN Position: S RN Member Role: Primary Care Nurse Name: Oleg Latham MD Position: S Outreach Member Role: PCP Address: [address] [place] [address] [place] [address]- Telecom: Name: Kobi Galarza RN Position: S RN Member Role: Primary Care Nurse Name: Mai Da Silva RN Position: S RN Member Role: Primary Care Nurse Care Team Related Persons Name: URI KINGSLEY Name: NAN KINGSLEY Insurance Providers Guarantor name: ADELA ALMENDAREZ [employer] [facility] Information #: 1 Payer: MEDICARE PART B OUTPT Member Number: NA Policy Number: NA Group Number: NA Health Plan Information #: 2 Payer: MEDEX Member Number: NA Policy Number: NA Group Number: NA
--- NOTE | 2024-12-03 08:45 | A.OFFVIS_ITS ---
Vital Signs 12/03/24 08:50 Height 5 ft 7 in Weight 171 lb 15.369 oz BMI 26.9 BP 136/78 Blood Pressure Location Lt brachial Position Sitting Pulse 86 Intake Visit Reasons: 6 mth f/up Intake Note: 6 month follow-up hearts ok but tripped on 11/13 was in the ED Allergies pollen extracts [POLLEN] Allergy (Mild, Verified 11/13/24 11:08) RUNNY NOSE Medication List - Last Reconciled 12/03/24 by Silas Campos MD ascorbate calcium (vitamin C) 500 mg PO DAILY atorvastatin 80 mg PO DAILY cilostazol 100 mg PO BID@0900,1400 clopidogrel 75 mg PO DAILY ezetimibe 10 mg PO DAILY famotidine 20 mg PO BID@0900,1400 ibuprofen 800 mg PO BID PRN levetiracetam 250 mg PO BID lisinopril 10 mg PO DAILY metoprolol tartrate 50 mg PO BID@0900,1400 HPI Comments Details: Javier comes for follow-up. He is currently limited because of her recent injury and a fall which was accidental. Before that he said that he was doing extremely well. He had no cardiac symptoms. Denies any chest pain or shortness of breath. Had good functionality. No heart failure symptoms. Comes for foll ow-up of CAD and transcatheter aortic valve replacement. Takes all his medications. No major bleeding issues. No prolonged palpitation irregular heartbeat. [facility] Medical History (Updated 12/03/24 @ 09:11 by Silas Campos MD) Hypertension Hyperlipidemia CAD in the [place] artery AAA (abdominal aortic aneurysm) Severe aortic stenosis Carotid stenosis, bilateral Aortic stenosis CAD (coronary artery disease) Hyperlipidemia HTN (hypertension) Aortic stenosis Peripheral vascular disease Bilateral carotid artery disease Postoperative atrial fibrillation Surgical History (Updated 12/03/24 @ 09:11 by Silas Campos MD) S/P TAVR (transcatheter aortic valve replacement) H/O endovascular stent graft for abdominal aortic aneurysm (10/30/24) Status post transcatheter aortic valve replacement (TAVR) using bioprosthesis Hx of coronary artery bypass graft Family History Father CVD (cardiovascular disease) Mother No problems noted. Social History Household Members: None Housing: Condominium Do you presently have visiting nurse or other home services: No Patient Tobacco Use Status: Never used Tobacco service: No Review of Systems Const Denies chills, Denies fatigue, Denies fever(s), Denies frequent falls, Denies weakness, Denies weight gain and Denies weight loss ENT Denies dizziness Card Denies chest pain, Denies leg edema, Denies lightheadedness, Denies palpitations, Denies dyspnea, Denies dyspnea on exertion, Denies orthopnea and Denies other (loss of consciousness) Resp Denies cough, Denies dyspnea and Denies dyspnea on exertion GI Denies hematochezia and Denies change in stool character Musc Denies abnormal gait, Denies muscle weakness, Denies numbness, Denies radiating pain into limb and Denies tingling Neuro Denies abnormal gait, Denies dizziness, Denies frequent falls, Denies numbness, Denies tingling and Denies weakness Endo Denies fatigue and Denies palpitations Physical Exam Vital Signs: Last Vital Signs Pulse 86 12/03/24 08:50 BP 136/78 12/03/24 08:50 BMI result Body Mass Index 26.9 Const General: cooperative, healthy appearing, comfortable and no acute distress Orientation/consciousness: patient oriented x3 Neck Neck: Yes normal visual inspection Resp Effort & Inspection: normal respiratory effort Auscultation: clear to auscultation bilaterally, no crackles, no rales, no rhonchi and no wheezes Cardio Jugular venous distension: no JVD Rate: regular rate Rhythm: regular rhythm Heart sounds: S1 normal heart sound present, S2 normal heart sound present, no click, no gallops, no murmurs and no rubs Neuro General: patient oriented x3 Extrem General: Yes normal to inspection and No no pedal edema Psych Appearance: grossly normal Mental Status: mental status grossly normal Speech and movement: Normal speech and movement present Assessment & Plan Assessment & Plan (1) Status post transcatheter aortic valve replacement (TAVR) using bioprosthesis: Comment: 26 mm bioprosthetic aortic valve, left carotid approach, March 11 2024 Code(s): Z95.3 - Presence of xenogenic heart valve Category: Surgical Plan: Status post transcatheter aortic valve replacement with 26 mm bioprosthetic valve. Clinically doing extremely well. Follow-up echocardiogram in 5 months. SBE prophylaxis as per ACC/aha guidelines. Continue aggressive vascular risk factor modification, see below. Continue current dual antiplatelet therapy given his diffuse vascular disease. (2) CAD (coronary artery disease): Code(s): I25.10 - Atherosclerotic heart disease of [place] coronary artery without angina pectoris Category: Medical Plan: Perez vascular disease with significant CAD as well as bilateral carotid disease, peripheral vascular disease, abdominal aortic aneurysm repair. Currently doing well. Continue aggressive risk factor modification. Currently on dual antiplatelet therapy, consider switching aspirin to low-dose oral anticoagul ation therapy although he is also on cilostazol therapy which increase his bleeding risk. Continue aggressive lipid modification, currently on high- intensity statin as well as ezetimibe therapy. Advised lipid panel in near future. Continue aggressive blood pressure control which is currently well optimized. Encouraged to continue follow with vascular surgery. Will follow up in the clinic in 6 months time after echocardiogram. Thank you for allowing me to partake in his care Orders: Orders CA echo transthoracic complete 5 Months Z95.3 - Presence of xenogenic heart valve Coding Level of Care Code Est Pt Level 4 (69548) Complex EM visit Add On G2211 Diagnoses Status post transcatheter aortic valve replacement (TAVR) using bioprosthesis Z95.3 CAD (coronary artery disease) I25.10
[2024-12-03 08:50] VITALS: BP 136/78; PULSE 86; BMI 26.9
== END 2024-12-03 09:09 | disposition home or self-care (01) ==
PROVIDERS: PCP Internal Medicine; Visit Provider Internal Medicine Cardiovascular Disease
DX: Z95.3 Presence of xenogenic heart valve (principal); I25.10 Atherosclerotic heart disease of native coronary artery without angina pectoris
CPT/HCPCS: 99214; G2211

== ENCOUNTER → 2024-12-03 08:27 | Outpatient (BNVA) | payer MEDICARE, SELFPAY | PROVIDERS: PCP Internal Medicine; Visit Provider Internal Medicine Cardiovascular Disease | DX: I25.10 Atherosclerotic heart disease of native coronary artery without angina pectoris (principal); Z95.3 Presence of xenogenic heart valve | CPT/HCPCS: 99212 ==

== ENCOUNTER 2024-12-05 06:25 | Outpatient (REF) | payer MEDICARE, SELFPAY ==
[2024-12-05 07:06] LABS: Cholesterol 130 mg/dL (<200); HDL Cholesterol 44 mg/dL (>40); LDL Cholesterol Calculated 62 mg/dL (<100); Triglycerides 121 mg/dL (<150)
== END 2024-12-05 06:26 | disposition home or self-care (01) ==
LOC: HO.LAB 06:25
PROVIDERS: PCP Internal Medicine; Visit Provider Internal Medicine Cardiovascular Disease
DX: I25.10 Atherosclerotic heart disease of native coronary artery without angina pectoris (principal)
CPT/HCPCS: 36415; 80061

== ENCOUNTER 2025-03-31 09:00 | Outpatient (RCR) | payer MEDICARE, SELFPAY | END 2025-05-15 12:11 | disposition home or self-care (01) | LOC: HO.WCC 09:00 | PROVIDERS: PCP Internal Medicine; Visit Provider Surgery | DX: S91.312D Laceration without foreign body, left foot, subsequent encounter (principal); I87.302 Chronic venous hypertension (idiopathic) without complications of left lower extremity; X58.XXXD Exposure to other specified factors, subsequent encounter; Z87.2 Personal history of diseases of the skin and subcutaneous tissue | CPT/HCPCS: 11042; 11045; 15271; 15275; 97597; 99212; 99213; Q4187 ==

== ENCOUNTER → 2025-05-23 09:42 | Outpatient (REF) | payer MEDICARE, SELFPAY ==
--- NOTE | 2025-05-23 09:44 | CA_ITS ---
Transthoracic Echocardiogram Patient (Last, First, Middle): Javier Salguero P Gender: Male Date of : 1940 Age: 84 Procedure Date: 05/23/2025 Procedure Type: Transthoracic Echocardiogram Location: OP Height: 170.18 cm Weight: 77.11 kg BSA: 1.89 m2 Heart Rate: bpm BP: 158 / 72 mmHg Varnisher Plasticoater: TO Referring MD: Silas Campos MD Symptoms: Z95.3 - Presence of xenogenic heart valve Study Quality: Fair Conclusions: - The left ventricular systolic function is normal. The visually estimated ejection fraction is between 55-60%. - There is moderate septal asymmetric hypertrophy. - A bioprosthetic aortic valve is present. The prosthetic aortic valve appears to be functioning normally. - There is moderate mitral annular calcification. There is mild to moderate mitral valve regurgitation. - There is mild to moderate tricuspid valve regurgitation. - Mild to moderate pulmonary hypertension is present. - There is mild dilatation of the ascending aorta measuring 4.10 cm. Findings Procedure Information The study quality is limited by the patients inability to tolerate the test and an uncooperative patient. Left Ventricle Normal left ventricular cavity size. The left ventricular systolic function is normal. The visually estimated ejection fraction is between 55-60%. There is no evidence of regional wall motion abnormalities. Evidence suggests grade I (mild) diastolic dysfunction. There is moderate septal asymmetric hypertrophy. Right Ventricle Normal right ventricular cavity size. There is mildly decreased right ventricular systolic function. Atria The left atrium is severely dilated. The right atrium is normal in size. Aortic Valve A bioprosthetic aortic valve is present. The prosthetic aortic valve appears to be functioning normally. There is no aortic valve regurgitation. Mitral Valve There is moderate mitral annular calcification. There is mild to moderate mitral valve regurgitation. There is no mitral valve stenosis. Pulmonic Valve The pulmonic valve is likely normal. Tricuspid Valve There is mild to moderate tricuspid valve regurgitation. Mild to moderate pulmonary hypertension is present. Great Vessels There is mild dilatation of the ascending aorta measuring 4.10 cm. Venous The inferior vena cava is normal in size and collapses less than 50% with inspiration. Pericardium/Pleural There is no evidence of pericardial effusion. Prior Study Comparison No significant change compared to prior study dated: 04/04/2024. Measurements 2D Linear Measurements IVSd: 1.42 0.6-0.9/0.6-1.0 cm LVIDd: 4.62 3.9-5.3/4.2-5.9 cm LVIDd Index: 2.44 2.4-3.2/2.2-3.1 cm/m2 LVIDs: 3.13 2.0-3.6 cm LVPWd: 1.04 0.7-1.1 cm LA Diam: 4.30 2.7-3.8/3.0-4.0 cm LAIDs Index: 2.28 1.5-2.3 cm/m2 LV Mass: 266.54 67-162/88-224 g LV Mass Index: 141.02 43-95/49-115 g/m2 LVOT Diam: 2.20 3.0+(-)1.3 cm 2D Systolic Function EF 4C: 51.60 >55% Mitral Valve MV VTI: 0.36 MV Pk Oscar: 1.23 MV Mn Oscar: 0.73 MV Pk Grad: 6.00 MV Mn Grad: 3.00 MV Pk E: 0.85 MV PK A: 1.11 MV Decel Time: 235.00 E/A: 0.80 E'Lateral: 5.77 E'Medial: 4.46 E/E' Med: 19.10 E/E' Lat: 14.80 PHT: 69.00 MVA PHT: 3.19 Decel Wells: 3.63 Aortic Valve AoV Pk Oscar: 1.78 AoV Mn Oscar: 1.22 AoV VTI: 0.40 AoV Pk Grad: 13.00 Aov Mn Grad: 7.00 LVOT LVOT Diam: 2.20 LVOT Area: 3.80 Diastolic Function MV Pk E: 0.85 MV Pk A: 1.11 E/A: 0.80 E'Medial: 4.46 E/E' Med: 19.10 E' Laterial: 5.77 E/E' Lat: 14.80 Right Ventricle TAPSE (mm): 15.00 TVS' Oscar: 9.03 Tricuspid Valve TR Pk Oscar: 3.26 TR Pk Grad: 43.00 RA Press: 8.00 RVSP: 51.00 Great Vessels Aorta Sinus of Valsalva: 3.48 2.0-3.5 cm Ao Asc: 4.10 2.1-3.4 cm Updated in Other Vendor System with Status of Final Corby Crouch MD electronically signed on 05/24/2025 12:54:00 PM with status of Final
--- OUTSIDE RECORDS SUMMARY | 2025-05-23 10:12 | XMS_ITS | Patient Health Record ---
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 Name Role Phone Oleg Latham MD Primary Care Provider Unavaila Marlene Rodriguez Unavailable [phone] Reason For Referral No Information Medications Medication SIG (Take, Route, Frequency, Duration) Notes Start Date End Date Status Lisinopril Active Metoprolol & Diet Manage Prod Active Famotidine Active Cilostazol Active Symbicort Active Vitamin C Active Aspirin Active Atorvastatin Calcium Active Problems Problem Type SNOMED Code ICD Code Onset Dates Problem Status W/U Status Risk Notes Problem Onychomycosis (594992603) Onychomycosis (110.1) Active confirmed Problem Hammer toe (550395595) Hammer toe (735.4) Active confirmed Problem 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) Active confirmed Problem Ingrowing nail (635699234) Ingrowing Nail (703.0) Active confirmed Plan Of Treatment Pending Test Test Name Order Date [id number] NAIL, 6 OR MORE 07/21/2014 [id number] Plate 07/21/2014 Insurance Providers Payer Name Payer Address Payer Phone Subscriber Number Group Number Insured Name Patient Relationship to Insured Coverage Start Date Coverage End Date Medicare [employer] [address] [facility] [place] [address] [id number] Javier Adame Self - patient is the insured [facility] [address] [place] [address] [id number] Javier Adame Self - patient is the insured Medical (General) History Medical History History ICD Code Hyperlipidemia Hypertension Chicken pox Measles Mumps Surgical History Surgery Date(Month/Year) triple bypass 01/31/2012
== END ==
LOC: HO.CARD 09:42
PROVIDERS: PCP Internal Medicine; Visit Provider Internal Medicine Cardiovascular Disease
DX: Z95.3 Presence of xenogenic heart valve (principal)
CPT/HCPCS: 93306

== ENCOUNTER → 2025-05-23 09:44 | Outpatient (BNV) | payer MEDICARE, SELFPAY | PROVIDERS: PCP Internal Medicine; Visit Provider Internal Medicine | DX: I42.2 Other hypertrophic cardiomyopathy (principal); I34.81 Nonrheumatic mitral (valve) annulus calcification; I34.0 Nonrheumatic mitral (valve) insufficiency; I27.20 Pulmonary hypertension, unspecified | CPT/HCPCS: 93306 ==

== ENCOUNTER 2025-05-27 08:58 | Outpatient (REF) | payer MEDICARE, SELFPAY ==
[2025-05-27 13:24] LABS: MANUAL DIFF FLAG NO
[2025-05-27 13:29] LABS: Hematocrit 31.4 % (42.0-52.0); Hemoglobin 10.9 g/dl (14.0-18.0); Imm Gran Abs Auto 0.02 X10*3/uL (0.00-0.03); Imm Gran Pct Auto 0.4 % (0.0-0.4); Lymphocytes Absolute Auto 1.1 X10*3/uL (1.2-4.9); Mean Corpuscular HGB Conc 34.7 g/dl (31.0-36.0); Mean Corpuscular Hemoglobin 31.7 pg (27.0-33.0); Mean Corpuscular Volume 91.3 fL (80.0-98.0); NRBC Abs Auto 0.000 X10*3/uL (0.0-0.012); NRBC Pct Auto 0.0 /100WBC (0.0-0.2); Platelet Count 116 X10*3/uL (160-400); Red Blood Count 3.44 X10*6/uL (4.60-5.80); White Blood Count 5.0 X10*3/uL (4.8-10.8)
[2025-05-27 14:03] LABS: Alanine Aminotransferase 16 U/L (0-40); Albumin Level 3.9 g/dL (3.5-5.0); Alkaline Phosphatase 112 U/L (39-117); Anion Gap 12 (12-20); Aspartate Amino Transferase 24 U/L (5-37); Blood Urea Nitrogen 16 mg/dL (9-16); Calcium 9.1 mg/dL (8.4-10.2); Carbon Dioxide 24 mmol/L (22-29); Chloride 103 mmol/L (96-108); Estimated Glomerular Filt Rate > 60; Potassium 4.6 mmol/L (3.3-5.1); Sodium 134 mmol/L (135-145); Total Protein 6.5 g/dL (6.5-8.0)
[2025-05-28 09:48] LABS: Iron 81 mcg/dL (45-160); Percent Iron Saturation 33 % (15-50); Total Iron Binding Capacity 245 mcg/dL (228-428); Unsaturated Iron Binding 164 ug/dL
[2025-05-28 10:02] LABS: Ferritin 185 ng/mL (20-250)
== END 2025-05-27 08:59 | disposition home or self-care (01) ==
LOC: HO.10HDL 08:58
PROVIDERS: PCP Internal Medicine; Visit Provider Physician Assistant
DX: I25.10 Atherosclerotic heart disease of native coronary artery without angina pectoris (principal); E78.5 Hyperlipidemia, unspecified; D50.9 Iron deficiency anemia, unspecified; I10 Essential (primary) hypertension
CPT/HCPCS: 36415; 80048; 80076; 82728; 83540; 85025; 99202

== ENCOUNTER 2025-05-27 08:58 | Outpatient (AMB) | payer MEDICARE, SELFPAY ==
--- NOTE | 2025-05-27 09:01 | A.OFFPC_ITS ---
Vital Signs 05/27/25 09:07 Height 5 ft 7 in Weight 77.111 kg BMI 26.6 BP 172/84 H Respiration 16 Pulse 76 Pulse Source Palpation Intake Visit Reasons: Routine Sql Report Developer Required: No Accompanied by: Self / Same As Patient Allergies pollen extracts (POLLEN) Allergy (Mild, Verified 05/27/25 09:01) RUNNY NOSE HPI HPI Comments History of Present Illness Details 84-year-old male with history of coronar y artery disease, AAA, hypertension, hyperlipidemia, aortic stenosis, seizure history presents to the office today for management of chronic conditions and to establish care. AAA- following with [facility] vascular surgery. 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 Denies any abdominal pain. On cilostazol and Plavix. Repeat ultrasound to be scheduled in July CAD/HLD- s/p CAGB x2. On statin, plavix, metoprolol. Following with Dr Campos with upcoming appt next week Seizure history- last sz about 8 years ago following a mechanical fall with head strike but no LOC. Following with neurology no further seizures since [facility] initiated HTN- has history of white coat htn. Review of BPs historically have been quite variable with many BPs wnl. Last BP at [facility] was 126/68. BP on recheck today 168/88. Compliant with lisinopril 10 mg daily and metoprolol Aortic stenosis-s/p TAVR (bioprosthetic) Concerns: None Health Maintenance: No further colonoscopies or PSA ROS: General: No fevers, malaise, unintentional weight loss HEENT: No blurred vision, diplopia. No sore throat, nasal congestion, rhinorrhea, sinus pain, ear pain Cardiovascular: No chest pain, palpitations, or leg edema Respiratory: No shortness of breath, wheezing, cough GI: No abdominal pain, nausea, vomiting, diarrhea, constipation, melena, hematochezia : No dysuria, hematuria, increased urinary frequency, decreased urinary output MSK: No myalgia, back pain Neuro: No headaches, weakness, paresthesias Skin: No rashes or lesions EXAM: Constitutional - Awake and Alert, No apparent distress Eyes - PERRL Cardiovascular - S1S2, RRR, No edema Respiratory - Normal lung expansion, Normal respiratory effort, No respiratory distress, CTA bilaterally Extremities - no calf tenderness bilaterally, no swelling Skin - Warm/Dry Neurological - Alert & oriented x3 Psychological - Appropriate affect [facility] Medical History (Updated 05/28/25 @ 09:52 by JANES Adler) Hypertension Hyperlipidemia CAD in [place] artery AAA (abdominal aortic aneurysm) Severe aortic stenosis Carotid stenosis, bilateral CAD (coronary artery disease) Hyperlipidemia HTN (hypertension) Peripheral vascular disease Bilateral carotid artery disease Postoperative atrial fibrillation Surgical History (Updated 05/26/25 @ 16:14 by Ayde Limon) History of colonoscopy (~03/05/15) H/O endovascular stent graft for abdominal aortic aneurysm (10/30/24) Status post transcatheter aortic valve replacement (TAVR) using bioprosthesis Hx of coronary artery bypass graft Family History Father CVD (cardiovascular disease) Mother No problems noted. Social History Household Members: None Housing: Condominium Do you presently have visiting nurse or other home services: No Patient Tobacco Use Status: Never used Tobacco service: No Questionnaire PHQ-9 Over the last 2 weeks, how often have you been bothered by any of the following problems? 1. Little interest or pleasure in doing things: not at all 2. Feeling down, depressed, or hopeless: several days 3. Trouble falling or staying asleep, or sleeping too much: not at all 4. Feeling tired or having little energy: not at all 5. Poor appetite or overeating: not at all 6. Feeling bad about yourself - or that you are a failure or have let yourself or your family down: not at all 7. Trouble concentrating on things, such as reading the newspaper or watching television: not at all 8. Moving or speaking so slowly that other people could have noticed. Or the opposite - being so fidgety or restless that you have been moving around a lot more than usual: not at all 9. Thoughts that you would be better off or of hurting yourself in some way: not at all Total score: 1 Source: Developed by Drs. Javier Gil, Meg Colvin, Braden Fischer and colleagues, with an educational jackelin from [employer]. Thrive Questionnaire Date Thrive assessed: 05/27/25 I am a: Patient What is your living situation today?: I have a steady place to live Within the past 12 months, did the food you bought not last and you didn't have the money to get more?: Never true Within the past 12 months, did you worry whether your food would run out before you got money to buy more?: Never true Do you have trouble paying for medicines?: No Do you have trouble getting transportation to medical appointments?: No Do you have trouble paying your heating and electricity bill?: No Do you have trouble taking care of your child, family member or friend?: No Do you have trouble with day-to-day activities such as bathing, preparing meals, shopping, managing finances, etc.?: No Are you currently unemployed and looking for a job?: No Are you interested in more education?: No Please select the resources that you would like help with: None THRIVE Score: 0 HARI-7 AMB Questionnaire HARI-7 Date HARI - 7 assessed: 05/27/25 Feeling nervous, anxious, or on edge: 0 = Not at all Not being able to stop or control worryin = Not at all Worrying too much about different things: 0 = Not at all Trouble relaxin = Not at all Being so restless that it is hard to sit still: 0 = Not at all Becoming easily annoyed or irritable: 0 = Not at all Feeling afraid as if something awful might happen: 0 = Not at all Total HARI-7 score (0-4 normal; 5-9 mild; 10-14 moderate; 15-21 severe): 0 Source: Developed by Drs. Javier Gil, Meg Colvin, Braden Fischer and colleagues, with an educational jackelin from [employer]. Physical exam (Primary Care) Vital Signs: Last Vital Signs Pulse 76 05/27/25 09:07 Resp 16 05/27/25 09:07 BP 172/84 H 05/27/25 09:07 BMI result Body Mass Index 26.6 Tobacco/Smoking Status: Tobacco use Status Patient Tobacco Use Status Never used Tobacco 05/27/25 09:02 PHQ-9: PHQ-9 Score PHQ-9: Total score 1 05/27/25 11:45 Thrive Assessment: Date of Thrive Assessment Date Thrive assessed 05/27/25 05/27/25 09:12 Coding Level of Care Code New Pt Level 4 (54653) Complex EM visit Add On G2211 Diagnoses CAD (coronary artery disease) I25.10 Abdominal aortic aneurysm I71.40 Hyperlipidemia E78.5 Hypertension I10 Assessment & Plan Assessment & Plan (1) CAD (coronary artery disease): Code(s): I25.10 - Atherosclerotic heart disease of [place] coronary artery without angina pectoris Category: Medical Plan: Stable. Continue following with [facility]. Continue statin, clopidogrel, metoprolol (2) Abdominal aortic aneurysm: Code(s): I71.40 - Abdominal aortic aneurysm, without rupture, unspecified Category: Medical Plan: Stable s/p placement of pelvis stent 04/2024. Continue following with [facility] vascular surgery and continue clopidogrel and Plavix. Recommend tight blood pressure control. Patient is adamant that blood pressures are typically well controlled but uncontrolled today due to white coat hypertension. Reviewed prior blood pressures and has had multiple normal blood pressure readings and most recent blood pressure at [facility] was within normal limits (3) Hyperlipidemia: Code(s): E78.5 - Hyperlipidemia, unspecified Category: Medical Plan: Controlled. Continue atorvastatin and ezetimibe. Diet low in saturated fats and highly processed foods. (4) Hypertension: Code(s): I10 - Essential (primary) hypertension Category: Medical Plan: Patient is adamant that blood pressures are typically well controlled but uncontrolled today due to white coat hypertension. Reviewed prior blood pressures and has had multiple normal blood pressure readings and most recent blood pressure at [facility] was within normal limits. Continue lisinopril and metoprolol Plan Follow-up in 4 months. Labs to be completed following visit today. Orders: Orders Basic Metabolic Panel 05/27/25 E78.5 - Hyperlipidemia, unspecified, I10 - Essential (primary) hypertension, I25.10 - Atherosclerotic heart disease of [place] coronary artery without angina pectoris Liver Panel 05/27/25 E78.5 - Hyperlipidemia, unspecified, I10 - Essential (primary) hypertension, I25.10 - Atherosclerotic heart disease of [place] coronary artery without angina pectoris Complete Blood Count Auto Diff 05/27/25 E78.5 - Hyperlipidemia, unspecified, I10 - Essential (primary) hypertension, I25.10 - Atherosclerotic heart disease of [place] coronary artery without angina pectoris
[2025-05-27 09:07] VITALS: BP 172/84; PULSE 76; RESP 16; BMI 26.6
--- OUTSIDE RECORDS SUMMARY | 2025-05-27 09:25 | XMS_ITS | Patient Health Record ---
Author Organization [facility] Address [address] [place] [address] Care Team Providers Care Skills Trainer Name Role Phone Oleg Latham MD Primary Care Provider Michaela Adela Garcia Unavailable [phone] Reason For Referral No Information Medications Medication SIG (Take, Route, Frequency, Duration) Notes Start Date End Date Status Cilostazol 100 MG 1 tablet 30 minutes before or 2 hours after breakfast and dinner Orally Active Famotidine 20 MG 1 tablet Orally Active Metoprolol Tartrate 50 MG 1 tablet Orally Active Lisinopril 10 MG 1 tablet Orally Once a day Active Atorvastatin Calcium 80 MG 1 tablet Oral ly Once a day Active Vitamin C 1000 MG 1 tablet Orally Once a day Active Symbicort 80-4.5 MCG/ACT 2 puffs Inhalat ion Twice a day Active Colyte w Flavor Packs 240 GM as directed Orally as directed for 1 day(s) 02/09/2015 Active Aspir-81 81 MG 1 tablet Orally Once a day Active Problems Problem Type SNOMED Code ICD Code Onset Dates Problem Status W/U Status Risk Notes Problem Colon cancer screening (338659953) Colon cancer screening (V76.51) Active confirmed Problem Gastroesophageal reflux disease (708259660) GERD (gastroesophage al reflux disease) (530.81) Active confirmed Problem 04471193 Essential hypertension (401.9) Active confirmed Plan Of Treatment No Information Insurance Providers Payer Name Payer Address Payer Phone Subscriber Number Group Number Insured Name Patient Relationship to Insured Coverage Start Date Coverage End Date MEDICARE [place] [address] [place] [address] [id number] ADELA COVARRUBIAS Self - patient is the insured MEDEX ATTN CLAIMS [address] [place] [address] [id number] ADELA COVARRUBIAS Self - patient is the insured Medical (General) History Medical History History ICD Code Upper endoscopy in 08/2006 f or treatment of an esophageal obstruction in relation to food--he has used famotidine since then without any further upper GI issues--he did have a followup barium swallow with a barium tablet which was negative for any sign of obstruction--there was a small hiatal hernia noted Hypertension Hyperlipidemia Esophageal obstruction as above Denies DE,DM,CVA,renal disease Negative screening colonoscopy in 2, other than some diverticulosis COPD he described that he takes t he Cilostazol for his legs---? If he has peripheral vascular disease with claudication Hgb 13.5, MCV 88, Iron 153, Iron sat 54% --05/2014 Abdominal aortic aneurysm Surgical History Surgery Date(Month/Year) 3 V-CABG in approx. 2010 or 2011
--- OUTSIDE RECORDS SUMMARY | 2025-05-27 09:25 | XMS_ITS | Patient Health Record ---
Author Organization [facility] Address [address] [place] [address] Care Team Providers Care Medical Assisting Program Director Name Role Phone Oleg Latham MD Primary Care Provider Unavaila Marlene Rodriguez Unavailable [phone] Reason For Referral No Information Medications Medication SIG (Take, Route, Frequency, Duration) Notes Start Date End Date Status Lisinopril Active Metoprolol & Diet Manage Prod Active Famotidine Active Cilostazol Active Symbicort Active Vitamin C Active Aspirin Active Atorvastatin Calcium Active Problems Problem Type SNOMED Code ICD Code Onset Dates Problem Status W/U Status Risk Notes Problem Onychomycosis (707567617) Onychomycosis (110.1) Active confirmed Problem Hammer toe (925995360) Hammer toe (735.4) Active confirmed Problem Disorder of sebaceous gland (8608402) Xerosis (706.8) Active confirmed Problem Ingrowing nail (931272919) Ingrowing Nail (703.0) Active confirmed Plan Of Treatment Pending Test Test Name Order Date [id number] NAIL, 6 OR MORE 07/21/2014 [id number] Plate 07/21/2014 Insurance Providers Payer Name Payer Address Payer Phone Subscriber Number Group Number Insured Name Patient Relationship to Insured Coverage Start Date Coverage End Date Medicare National Govt Sv[employer] Inc [address] [facility] [place] [address] [id number] Javier Adame Self - patient is the insured [facility] [address] [place] [address] [id number] Javier Adame Self - patient is the insured Medical (General) History Medical History History ICD Code Hyperlipidemia Hypertension Chicken pox Measles Mumps Surgical History Surgery Date(Month/Year) triple bypass 01/31/2012
== END 2025-05-27 09:34 | disposition home or self-care (01) ==
LOC: HO.HMCHD 08:58
PROVIDERS: PCP Internal Medicine; Visit Provider Physician Assistant
DX: I25.10 Atherosclerotic heart disease of native coronary artery without angina pectoris (principal); I71.40 Abdominal aortic aneurysm, without rupture, unspecified; E78.5 Hyperlipidemia, unspecified; I10 Essential (primary) hypertension

== ENCOUNTER 2025-05-28 08:40 | Outpatient (REF) | payer MEDICARE, SELFPAY ==
--- OUTSIDE RECORDS SUMMARY | 2025-05-27 23:59 | XMS_ITS | Continuity of Care Document ---
Author Organization [facility] Address [address] [place] [address] Care Team Providers Care Workforce Management Coordinator Name Role Phone Oleg Latham MD Primary Care Physician [phone] Encounter [facility] NBR [id number] Date(s): 05/20/25 - 05/27/25 [facility] [address] [place] [address] Attending Physician: Oleg Latham MD Admitting Physician: Oleg Latham MD Referring Physician: Champ Dominguez MD Encounter Type: Office Visit Allergies, Adverse Reactions, Alerts Substance Criticality Severity Reaction Reaction Severity Status Contrast Dye Active Immunizations Given and Recorded Vaccine Date Status Refusal Reason SARS-CoV-2 (COVID-19) mRNA BNT-162b2 vac 01/21/21 Given Medications acetaminophen 325 mg oral tablet 975 mg, By Mouth, Every 6 hours, Refills 0, Maintenance, 05/06/25 8:27:00 AM EDT, Partial fill upon patient request if the prescription is for a schedule II opioid drug. Start Date: 05/06/25 Status: Ordered Repeat number: 1 atorvastatin 80 mg oral tablet 1 tablet [...] Date: 03/06/24 Status: Ordered Repeat number: 1 cilostazol 100 mg oral [...] 10:05:00 AM EDT, Route to Pharmacy Electronically, [facility], Partial fill upon patient request if [...] Date: 01/27/12 Status: Ordered Repeat number: 1 metoprolol 50 mg oral [...] (abdominal aortic aneurysm) Confirmed Active CAD in [place] artery Confirmed Active S/P TAVR (transcatheter aortic valve replacement) Confirmed Active S/P CABG x 2 Confirmed Active Hyperlipidemia Confirmed Active Hypertension Confirmed Active Severe aortic stenosis Confirmed Active Social History Social History Type Response Smoking Status Former smoker, quit more than 30 days ago entered on: 09/22/23 Sex Sex Representation Male (finding) Note * Vannessa Casillas: PERFORM Event Display: Patient Education/Instruction Authored Date: [id number] Ambulatory Adult Visit Summary [facility] [address] [place] [address] [address] Name: ADELA ALMENDAREZ : 1940?? Visit: 05/20/2025 14:46?? Ambulatory Visit Instructions ?? Your Care Team Primary Care Provider Oleg Latham MD? This Visit Provider Loly Fuller NP Your Diagnosis AAA (abdominal aortic aneurysm) Vitals Signs Pulse Rate:??103 bpm??High Height: 167.5 cm Systolic Blood Pressure: 126 mm Hg Weight: 77.11 kg Diastolic Blood Pressure: 68 mm Hg Body Mass Index:??27.48 kg/m2??High Oxygen Saturation: 96 % Body surface area: 1.89 What to do next Scheduled Follow-Up Appointments Monday 8:30 AM EDT ?? Where: [facility] [address] [address]- Status: Pending Future Orders BUN - Routine, Once, 10/30/24 9:35:00 EST, Future Order, [facility], Blood?? Creatinine - Routine, Once, 10/30/24 9:35:00 EST, Future Order, [facility], Blood?? INR (PT (INR)) - Routine, Once, 04/24/25 10:00:00 EDT, Within 3 Days, [facility], Blood?? Medications The list below reflects the information in our records and provided by you today along with any changes made during this visit. Please continue your medications until treatment is completed or stopped by your provider. If this is different from the information you have or there are other questions,please contact the prescribing provider. What How Much When Instructions Unchanged Acetaminophen (acetaminophen 325 mg oral tablet) 975 Milligram Oral Every 6 hours Unchanged Ascorbic Acid (Vitamin C) Unchanged Atorvastatin [...] enteric coated capsule) 1 capsule Oral Daily Medications and Immunizations Administered Medications Given During Visit No medications given during this visit.?? Allergies (NKA means No Known Allergies) Contrast Dye Common Emergency Awareness Tips IS IT A [...] are strongly encouraged to quit. Please call [facility] at [phone] or [phone] ([phone]) or log in to [email or web address] for referrals to smoking cessation programs. ?? The National Suicide Prevention Hotline is available 19/06 if you or someone you know needs to find a reason to keep living. By calling 5-192-405-ITS Compliance (8728) you'll be connected to a skilled, trained counselor at a crisis center in your area. [facility] [employer] Portal You can view and manage your care through the patient portal or by using a health care rhiannon of your choosing. [employer] is a website that allows you to securely view your medical information including your hospital discharge summary, office visit summaries, medications and follow-up visits. You can also request appointments, renew medications, and request access to your medical information using a health care rhiannon of your choosing, or just ask a question. You can enroll at [email or web address] or register during your next office visit. [facility], in keeping with [facility] guidance, no longer requires face masks for [...] primary care provider, you may find a [facility] provider by calling [facility] at [phone]. Patient Care team information Care Team Personnel Name: Leeann Stephenson RN Position: [facility] HBO Wound Member Role: Primary Care Nurse Name: Margoth Reyes RN Position: [facility] RN Member Role: Primary Care Nurse Name: Oleg Latham MD Position: [facility] Outreach Member Role: PCP Address: [address] [place] [address] Noa CHIRINOS [address] Telecom: Name: Kobi Galarza RN Position: [facility] RN Member Role: Primary Care Nurse Name: Jaja Nunez RN Position: [facility] RN Member Role: Primary Care Nurse Care Team Related Persons Name: URI KINGSLEY Name: NNA KINGSLEY Insurance Providers Guarantor name: [facility] Information #: 1 Payer: MEDICARE B Payer Identifier: Member Number: [id number] Group Number: Subscriber Identifier: [id number] Relationship to Subscriber: self Coverage Type: NA Coverage Verification Date: NA Telecom: NA Address: [facility] Plan Information #: 2 Payer: MEDEX SECONDARY ONLY Payer Identifier: Member Number: [id number] Group Number: Subscriber Identifier: [id number] Relationship to Subscriber: self Coverage Type: Medicare Other Coverage Verification Date: NA Telecom: Address:
--- OUTSIDE RECORDS SUMMARY | 2025-05-28 08:46 | XMS_ITS | Patient Health Record ---
Author Organization [facility] Address [address] [place] [address] Care Team Providers Care Motorcycle Maker Name Role Phone Oleg Latham MD Primary Care Provider Unavaila Marlene Rodriguez Unavailable [phone] Reason For Referral No Information Medications Medication SIG (Take, Route, Frequency, Duration) Notes Start Date End Date Status Lisinopril Active Metoprolol & Diet Manage Prod Active Famotidine Active Cilostazol Active Symbicort Active Vitamin C Active Aspirin Active Atorvastatin Calcium Active Problems Problem Type SNOMED Code ICD Code Onset Dates Problem Status W/U Status Risk Notes Problem Onychomycosis (780469922) Onychomycosis (110.1) Active confirmed Problem Hammer toe (279760680) Hammer toe (735.4) Active confirmed Problem Disorder of sebaceous gland (4101565) Xerosis (706.8) Active confirmed Problem Ingrowing nail (252354788) Ingrowing Nail (703.0) Active confirmed Plan Of Treatment Pending Test Test Name Order Date [id number] NAIL, 6 OR MORE 07/21/2014 [id number] Plate 07/21/2014 Insurance Providers Payer Name Payer Address Payer Phone Subscriber Number Group Number Insured Name Patient Relationship to Insured Coverage Start Date Coverage End Date Medicare National Govt Svcs Inc [address] [place] [address] [id number] Javier Adame Self - patient is the insured [facility] [address] [place] [address] [phone] [id number] Javier Adame Self - patient is the insured Medical (General) History Medical History History ICD Code Hyperlipidemia Hypertension Chicken pox Measles Mumps Surgical History Surgery Date(Month/Year) triple bypass 01/31/2012
--- OUTSIDE RECORDS SUMMARY | 2025-05-28 08:46 | XMS_ITS | Patient Health Record ---
Author Organization [facility] Address [address] [place] [address] Care Team Providers Care Director Building Name Role Phone Oleg Latham MD Primary Care Provider Michaela Adela Garcia Unavailable [phone] Reason For Referral No Information Medications Medication [...] Status Risk Notes Problem Colon cancer screening (354957612) Colon cancer screening (V76.51) Active confirmed Problem Gastroesophageal reflux disease (510237077) GERD (gastroesophage al reflux disease) (530.81) Active confirmed Problem 34096305 Essential hypertension (401.9) Active confirmed Plan Of Treatment No Information Insurance Providers Payer Name Payer Address Payer Phone Subscriber Number Group Number Insured Name Patient Relationship to Insured Coverage Start Date Coverage End Date MEDICARE OF [place] [address] [place] [address] [phone] [id number] ADELA COVARRUBIAS Self - patient is the insured MED[employer] ATTN CLAIMS [address] [place] [address] [id number] ADELA COVARRUBIAS Self - patient is the [...] Hypertension Hyperlipidemia Esophageal obstruction as above Denies AL,DM,CVA,renal disease Negative screening colonoscopy in 2, other than some diverticulosis COPD he described that he takes t he Cilostazol for his legs---? If he has peripheral vascular disease with claudication Hgb 13.5, MCV 88, Iron 153, Iron sat 54% --05/2014 Abdominal aortic aneurysm Surgical History Surgery Date(Month/Year) 3 V-CABG in approx. 2010 or 2011
== END 2025-05-28 08:41 | disposition home or self-care (01) ==
LOC: HO.LAB 08:40
PROVIDERS: Visit Provider Physician Assistant
DX: Z13.89 Encounter for screening for other disorder (principal)

== ENCOUNTER 2025-06-09 08:28 | Outpatient (AMB) | payer MEDICARE, SELFPAY ==
[2025-06-09 08:34] VITALS: BP 140/76; PULSE 70; BMI 26.9
--- NOTE | 2025-06-09 08:34 | MHC.OFFVIS ---
Vital Signs 06/09/25 08:34 Height 5 ft 7 in Weight 171 lb 15.369 oz BMI 26.9 BP 140/76 H Blood Pressure Location Lt brachial Position Sitting Pulse 70 Intake Visit Reasons: 6m follow up/echo Intake Note: 6 month follow-up after echo feeling good Allergies pollen extracts (POLLEN) Allergy (Mild, Verified 05/27/25 09:01) RUNNY NOSE Medication List - Last Reconciled 06/09/25 by Silas Campos MD ascorbate calcium (vitamin C) 500 mg PO DAILY atorvastatin 80 mg PO DAILY betamethasone dipropionate 0.05% 1 appl topical BID cilostazol 100 mg PO BID@0900,1400 clopidogrel 75 mg PO DAILY ezetimibe 10 mg PO DAILY famotidine 20 mg PO BID@0900,1400 levetiracetam 250 mg PO BID lisinopril 10 mg PO DAILY metoprolol tartrate 50 mg PO BID@0900,1400 HPI Comments Details: Javier comes for follow-up. He has been doing very well from cardiac perspective. Recently underwent what appears to be repair of his leaking abdominal aortic aneurysm graft. He has had no recent symptoms. Denies any exertional chest pain or shortness of breath. Doing well. He does get claudication when he walks 2 blocks but this is not limiting his lifestyle instead he can continue after stopping for low awhile. He denies any palpitations. No lightheadedness, syncope. Denies any orthopnea, PND, leg edema. Recent echocardiogram shows normally functioning bioprosthetic aortic valve. [facility] Medical History Hypertension Hyperlipidemia CAD in [place] artery AAA (abdominal aortic aneurysm) Severe aortic stenosis Carotid stenosis, bilateral CAD (coronary artery disease) Hyperlipidemia HTN (hypertension) Peripheral vascular disease Bilateral carotid artery disease Postoperative atrial fibrillation Surgical History History of colonoscopy (~03/05/15) H/O endovascular stent graft for abdominal aortic aneurysm (10/30/24) Status post transcatheter aortic valve replacement (TAVR) using bioprosthesis Hx of coronary artery bypass graft Family History Father CVD (cardiovascular disease) Mother No problems noted. Social History Household Members: None Housing: Condominium Do you presently have visiting nurse or other home services: No Patient Tobacco Use Status: Never used Tobacco service: No Review of Systems Const Denies chills, Denies fatigue, Denies fever(s), Denies frequent falls, Denies weakness, Denies weight gain and Denies weight loss ENT Denies dizziness Card Denies chest pain, Denies leg edema, Denies lightheadedness, Denies palpitations, Denies dyspnea, Denies dyspnea on exertion, Denies orthopnea and Denies other (loss of consciousness) Resp Denies cough, Denies dyspnea and Denies dyspnea on exertion GI Denies hematochezia and Denies change in stool character Musc Denies abnormal gait, Denies muscle weakness, Denies numbness, Denies radiating pain into limb and Denies tingling Neuro Denies abnormal gait, Denies dizziness, Denies frequent falls, Denies numbness, Denies tingling and Denies weakness Endo Denies fatigue and Denies palpitations Physical Exam Vital Signs: Last Vital Signs Pulse 70 06/09/25 08:34 BP 140/76 H 06/09/25 08:34 BMI result Body Mass Index 26.9 Const General: cooperative, healthy appearing, comfortable and no acute distress Orientation/consciousness: patient oriented x3 Neck Neck: Yes normal visual inspection Resp Effort & Inspection: normal respiratory effort Auscultation: clear to auscultation bilaterally, no crackles, no rales, no rhonchi and no wheezes Cardio Jugular venous distension: no JVD Rate: regular rate Rhythm: regular rhythm Heart sounds: S1 normal heart sound present, S2 normal heart sound present, no click, no gallops, no murmurs and no rubs Neuro General: patient oriented x3 Extrem General: Yes normal to inspection and No no pedal edema Psych Appearance: grossly normal Mental Status: mental status grossly normal Speech and movement: Normal speech and movement present Assessment & Plan Assessment & Plan (1) CAD (coronary artery disease): Code(s): I25.10 - Atherosclerotic heart disease of [place] coronary artery without angina pectoris Category: Medical Plan: CAD status post prior coronary artery bypass grafting with patent grafts by recent cardiac catheterization in 2022 done for TAVR evaluation. Doing well. He has diffuse and significant vascular disease as well. Currently on Plavix as well as cilostazol therapy. Being closely followed by vascular surgery. Continue high-intensity statin therapy along with ezetimibe therapy to target goal LDL less than 60 mg/dL. Aggressive vascular risk factor modification was pursued. Blood pressure today is optimized advised to monitor blood pressure at home and would try to target goal blood pressure less than 140 given his diffuse vascular disease to avoid orthostatic symptoms. He understands agrees. Low-salt diet was discussed. Advised to maintain adequate exercise capacity and walk regularly. (2) Status post transcatheter aortic valve replacement (TAVR) using bioprosthesis: Comment: 26 mm bioprosthetic aortic valve, left carotid approach, March 11 2024 Code(s): Z95.3 - Presence of xenogenic heart valve Category: Surgical Plan: Status post aortic valve replacement working well. Recent echocardiogram shows normal functioning of the aortic valve. Continue current antiplatelet therapy. SBE prophylaxis as per ACC/aha guidelines. Will continue monitor clinically on a yearly basis. Will follow up in the clinic in 1 year's time after an echocardiogram. Thank you for allowing me to partake in his care Coding Level of Care Code Est Pt Level 4 (29587) Complex EM visit Add On G2211 Diagnoses CAD (coronary artery disease) I25.10 Status post transcatheter aortic valve replacement (TAVR) using bioprosthesis Z95.3
--- OUTSIDE RECORDS SUMMARY | 2025-06-09 08:35 | XMS_ITS | Patient Health Record ---
[facility] Address [address] [place] [address] Care Team Providers Care Associate Professor Of Automation Name Role Phone Oleg Latham MD Primary Care Provider Unavaila Marlene Rodriguez Unavailable [phone] Reason For Referral No Information Medications Medication SIG (Take, Route, Frequency, Duration) Notes Start Date End Date Status Lisinopril Active Metoprolol & Diet Manage Prod Active Famotidine Active Cilostazol Active Symbicort Active Vitamin C Active Aspirin Active Atorvastatin Calcium Active Problems Problem Type SNOMED Code ICD Code Onset Dates Problem Status W/U Status Risk Notes Problem Onychomycosis (225940171) Onychomycosis (110.1) Active confirmed Problem Hammer toe (452711021) Hammer toe (735.4) Active confirmed Problem Disorder of sebaceous gland (3181210) Xerosis (706.8) Active confirmed Problem Ingrowing nail (819910216) Ingrowing Nail (703.0) Active confirmed Plan Of Treatment Pending Test Test Name Order Date [id number] NAIL, 6 OR MORE 07/21/2014 [id number] Plate 07/21/2014 Insurance Providers Payer Name Payer Address Payer Phone Subscriber Number Group Number Insured Name Patient Relationship to Insured Coverage Start Date Coverage End Date Medicare National [employer] [address] [place] [address] [id number] Javier Adame Self - [facility] [address] [place] [address] [id number] aJvier Adame Self - patient is the insured Medical (General) History Medical History History ICD Code Hyperlipidemia Hypertension Chicken pox Measles Mumps Surgical History Surgery Date(Month/Year) triple bypass 01/31/2012
--- OUTSIDE RECORDS SUMMARY | 2025-06-09 08:35 | XMS_ITS | Patient Health Record ---
Author Organization [facility] Address [address] [place] [address] Care Team Providers Care Client Experience Specialist Name Role Phone Oleg Latham MD Primary Care Provider Michaela Adela Garcia Unavailable [phone] Reason For Referral No Information Medications Medication [...] Status Risk Notes Problem Colon cancer screening (598858780) Colon cancer screening (V76.51) Active confirmed Problem GERD (gastroesophageal reflux disease) (530.81) Active confirmed Problem 30262011 Essential hypertension (401.9) Active confirmed Plan Of Treatment No Information Insurance Providers Payer Name Payer Address Payer Phone Subscriber Number Group Number Insured Name Patient Relationship to Insured Coverage Start Date Coverage End Date MEDICARE OF [place] [address] [place] [address] [phone] [id number] ADELA COVARRUBIAS Self - patient is the insured [employer] CLAIM[employer] [address] [place] [address] [id number] ANGELINA MILTONADELA Self - patient is the insured Medical [...] Hypertension Hyperlipidemia Esophageal obstruction as above Denies [place],DM,CVA,renal disease Negative screening colonoscopy in 2, other than some diverticulosis COPD he described that he takes t he Cilostazol for his legs---? If he has peripheral vascular disease with claudication Hgb 13.5, MCV 88, Iron 153, Iron sat 54% --05/2014 Abdominal aortic aneurysm Surgical History Surgery Date(Month/Year) 3 V-CABG in approx. 2010 or 2011
== END 2025-06-09 08:49 | disposition home or self-care (01) ==
LOC: HO.HCS 08:29
PROVIDERS: PCP Internal Medicine; Visit Provider Internal Medicine Cardiovascular Disease
DX: I25.10 Atherosclerotic heart disease of native coronary artery without angina pectoris (principal); Z95.3 Presence of xenogenic heart valve
CPT/HCPCS: 99214; G2211

== ENCOUNTER → 2025-06-09 08:28 | Outpatient (BNVA) | payer MEDICARE, SELFPAY | PROVIDERS: PCP Internal Medicine; Visit Provider Internal Medicine Cardiovascular Disease | DX: I25.10 Atherosclerotic heart disease of native coronary artery without angina pectoris (principal); Z95.3 Presence of xenogenic heart valve | CPT/HCPCS: 99212 ==

== ENCOUNTER 2025-08-11 08:29 | Outpatient (AMB) | payer MEDICARE, SELFPAY ==
--- NOTE | 2025-08-11 08:30 | A.OFFVIS_ITS ---
Intake Visit Reasons: 1yr f/u appt Allergies pollen extracts (POLLEN) Allergy (Mild, Verified 05/27/25 09:01) RUNNY NOSE HPI Comments Details: 84 years old man with seizure disorder and moderate left internal carotid artery stenosis. He had an episode of generalized convulsion in 2022, which happened few hours after he fell and hit his head. There was no significant physical injury to head or brain. He had been drinking beer. His head CT revealed mode rately severe cerebellar and cerebral atrophy, and an EEG revealed left frontocentral slowing. The patient is an 84-year-old male presenting with evaluation and management of a recent transient ischemic attack (TIA). He experienced a singular episode without recurrence. Notably, there has been a history of carotid artery intervention in the form of an endarterectomy, with no subsequent complications or changes in speech. A follow-up carotid ultrasound is scheduled to further evaluate his condition. The patient's medication regimen has been addressed, including the discontinuation of baby aspirin and a current course of liposil. A deliberate tapering plan was established for another unnamed medication, reducing its intake systematically over the next month. [facility] Medical History Hypertension Hyperlipidemia CAD in [place] artery AAA (abdominal aortic aneurysm) Severe aortic stenosis Carotid stenosis, bilateral CAD (coronary artery disease) Hyperlipidemia HTN (hypertension) Peripheral vascular disease Bilateral carotid artery disease Postoperative atrial fibrillation Surgical History History of colonoscopy (~03/05/15) H/O endovascular stent graft for abdominal aortic aneurysm (10/30/24) Status post transcatheter aortic valve replacement (TAVR) using bioprosthesis Hx of coronary artery bypass graft Family History Father CVD (cardiovascular disease) Mother No problems noted. Social History Household Members: None Housing: Condominium Do you presently have visiting nurse or other home services: No Patient Tobacco Use Status: Never used Tobacco service: No Review of Systems Const Details: - Neurological: Reports no further episodes following a transient ischemic attack. - Cardiovascular: Denies current symptoms but reports prior carotid endarterectomy. - Hematologic: Denies current use of baby aspirin. Physical Exam Neuro Other: He is alert and awake with normal spontaneity of speech fluency comprehension and affect. Gait is cautious. Face is symmetrical. Visual tejeda are full. Assessment & Plan Assessment & Plan (1) Seizure disorder: Comment: [place] [facility] [place]: L FT theta slowing CT brain WO at [facility] [place]: Mod cerebellar and mod cortical atrophy Code(s): G40.909 - Epilepsy, unspecified, not intractable, without status epilepticus Category: Medical (2) Carotid stenosis, left: Comment: NICS at [facility] [place]23: Mod L ICA stenosis. Code(s): I65.22 - Occlusion and stenosis of left carotid artery Category: Medical Plan Impression: a: One seizure in 2022 with mild EEG abnormality. It happened after he fell. b: Left carotid stenosis s/p CEA Rec: Decrease Levetiracetam to one a day for a month and then DC it. Coding Level of Care Code Est Pt Level 4 (06832) Diagnoses Seizure disorder G40.909 Carotid stenosis, left I65.22
--- OUTSIDE RECORDS SUMMARY | 2025-08-11 09:33 | XMS_ITS | Patient Health Record ---
Author Organization [facility] Address [address] [place] [address] Care Team Providers Care Time Clock Mechanic Name Role Phone Oleg Latham MD Primary Care Provider Unavaila Marlene Rodriguez Unavailable [phone] Reason For Referral No Information Medications Medication SIG (Take, Route, Frequency, Duration) Notes Start Date End Date Status Lisinopril Active Metoprolol & Diet Manage Prod Active Famotidine Active Cilostazol Active Symbicort Active Vitamin C Active Aspirin Active Atorvastatin Calcium Active Problems Problem Type SNOMED Code ICD Code Onset Dates Problem Status W/U Status Risk Notes Problem Onychomycosis (259697244) Onychomycosis (110.1) Active confirmed Problem Hammer toe (890627323) Hammer toe (735.4) Active confirmed Problem Disorder of sebaceous gland (8735007) Xerosis (706.8) Active confirmed Problem Ingrowing nail (470382444) Ingrowing Nail (703.0) Active confirmed Plan Of Treatment Pending Test Test Name Order Date [id number] NAIL, 6 OR MORE 07/21/2014 [id number] Plate 07/21/2014 Insurance Providers Payer Name Payer Address Payer Phone Subscriber Number Group Number Insured Name Patient Relationship to Insured Coverage Start Date Coverage End Date Medicare National [employer] [address] [facility] [place] [address] [id number] Javier Adame Self - [facility] [address] [place] [address] [id number] Javier Adame Self - patient is the insured Medical (General) History Medical History History ICD Code Hyperlipidemia Hypertension Chicken pox Measles Mumps Surgical History Surgery Date(Month/Year) triple bypass 01/31/2012
--- OUTSIDE RECORDS SUMMARY | 2025-08-11 09:33 | XMS_ITS | Patient Health Record ---
Author Organization [facility] Address [address] [place] [address] Care Team Providers Care Pediatric Sports Medicine Specialist Name Role Phone Noa (RETIRED) Oleg CHIRINOS Primary Care Provide r Unavailable Adela Fernandez Unavailable [phone] Reason For Referral No Information Medications Medication [...] Status Risk Notes Problem Colon cancer screening (668490053) Colon cancer screening (V76.51) Active confirmed Problem Gastroesophageal reflux disease (559926054) GERD (gastroesophage al reflux disease) (530.81) Active confirmed Problem 76034073 Essential hypertension (401.9) Active confirmed Plan Of Treatment No Information Insurance Providers Payer Name Payer Address Payer Phone Subscriber Number Group Number Insured Name Patient Relationship to Insured Coverage Start Date Coverage End Date MEDICARE OF [place] [address] [place] [address] [id number] ADELA COVARRUBIAS Self - patient is the insured MED[employer] ATT[employer] CLAIMS [address] [place] [address] [id number] ADELA COVARRUBIAS Self - patient is the [...]
== END 2025-08-11 08:41 | disposition home or self-care (01) ==
LOC: HO.HSM 08:30
PROVIDERS: PCP Internal Medicine; Visit Provider Psychiatry & Neurology Neurology
DX: G40.909 Epilepsy, unspecified, not intractable, without status epilepticus (principal); I65.22 Occlusion and stenosis of left carotid artery
CPT/HCPCS: 99214

== ENCOUNTER → 2025-08-11 08:29 | Outpatient (BNVA) | payer MEDICARE, SELFPAY | PROVIDERS: PCP Internal Medicine; Visit Provider Psychiatry & Neurology Neurology | DX: I65.22 Occlusion and stenosis of left carotid artery (principal); G40.909 Epilepsy, unspecified, not intractable, without status epilepticus | CPT/HCPCS: 99212 ==

== ENCOUNTER 2025-11-10 13:48 | Emergency (ER) | payer MEDICARE, SELFPAY ==
[2025-11-10] VITALS (7 sets, daily range): BP systolic 113–187; BP diastolic 54–92; PULSE 108–120; RESP 18–20; TEMP 36.6–36.8; O2SAT 96–99; BMI 26.6
--- NOTE | 2025-11-10 14:18 | ED.GENADULT ---
HPI - General Adult General Chief complaint: Epistaxis Stated complaint: nose bleed since this am, blood thinner Time Seen by Provider: 11/10/25 16:24 Source: patient and family (Daughter and granddaughter at bedside) Mode of arrival: ambulatory Limitations: no limitations History of Present Illness ED Provider: DAE Vivar HPI narrative: 85-year-old male with medical history of HTN, HLD, CAD, AAA, carotid stenosis, PVD on clopidogrel presents to the ED due to nosebleed that started this morning. Patient states he woke up this morning and noticed very scant light blood coming from both nostrils, that began to get heavier throughout the day. Patient states that the bleeding would stop for about 20-30 minutes at a time before starting again. Denies fevers, chills, chest pain, shortness of breath, abdominal pain, nausea, vomiting, diarrhea, urinary symptoms MD complaint: nose bleed Related Data Home Medications ?Medication ?Instructions ?Recorded ?Confirmed atorvastatin 80 mg tablet 80 mg PO DAILY 11/05/20 06/09/25 famotidine 20 mg tablet 20 mg PO BID@0900,1400 gi upset 11/05/20 06/09/25 ascorbate calcium (vitamin C) 500 500 mg PO DAILY 05/10/21 06/09/25 mg tablet lisinopril 20 mg tablet 10 mg PO DAILY 12/19/23 06/09/25 levetiracetam 250 mg tablet 250 mg PO BID 03/27/24 06/09/25 Previous Rx's ?Medication ?Instructions ?Recorded ezetimibe 10 mg tablet 10 mg PO DAILY #90 tabs 10/16/24 metoprolol tartrate 50 mg tablet 50 mg PO BID@0900,1400 #180 tabs 03/13/25 betamethasone dipropionate 0.05 % 1 appl topical BID #45 grams 08/01/25 topical cream clopidogrel 75 mg tablet 75 mg PO DAILY #90 tabs 09/24/25 cilostazol 100 mg tablet 100 mg PO BID@0900,1400 #180 tabs 10/22/25 Allergies Allergy/AdvReac Type Severity Reaction Status Date / Time pollen extracts (POLLEN) Allergy Mild RUNNY NOSE Verified 11/10/25 14:24 Review of Systems Review of Systems: Yes all other systems are reviewed and are negative PMFSH Past Medical History Attestation statement: The following information was validated with the patient. Source: old records reviewed, obtained from family (Daughter and granddaughter at bedside) and nursing notes reviewed Medical History Hypertension Hyperlipidemia CAD in [place] artery AAA (abdominal aortic aneurysm) Severe aortic stenosis Carotid stenosis, bilateral CAD (coronary artery disease) Hyperlipidemia HTN (hypertension) Peripheral vascular disease Bilateral carotid artery disease Postoperative atrial fibrillation Surgical History History of colonoscopy (~03/05/15) H/O endovascular stent graft for abdominal aortic aneurysm (10/30/24) Status post transcatheter aortic valve replacement (TAVR) using bioprosthesis Hx of coronary artery bypass graft Family History Family History Father CVD (cardiovascular disease) Mother No problems noted. Social History Social History Household Members: None Housing: Condominium Do you presently have visiting nurse or other home services: No Patient Tobacco Use Status: Never used Tobacco Advance Directives: No Advance Directives Information Provided: Yes service: No Physical Exam ED Vital Signs: Vital Signs - 24 hr 11/10/25 14:21 Temperature 98 F Pulse Rate 120 H Respiratory Rate 20 Blood Pressure 113/54 L Pulse Oximetry 99 Oxygen Delivery Method Room Air BMI result Body Mass Index 26.6 Course Course Course Narrative: Rapid medical examination performed in triage by Maria Teresa Wheatley PA-C: Patient is an 85 year old male presenting to the emergency department with a nose bleed. Patient states that he woke up with a nose bleed and it has not stopped bleeding since 0700 this morning. Patient states that he has coughed up several blood clots since it started. Patient states that he is on an anti-coag medication for his atrial fib. Detailed physical exam and review of systems are deferred to the lpn instructor. Labs ordered. Patient placed back in the waiting room pending room availability and results. Medications Administered Discontinued Medications Generic Name Dose Route Start Last Admin Trade Name Freq PRN Reason Stop Dose Admin Oxymetazoline HCl 2 spray 11/10/25 16:43 11/10/25 16:53 Oxymetazoline Hcl 0.05 % Nasal 15 Ml Raymond NOSTRIL-B 11/10/25 16:44 2 spray ONCE ONE Administration Medical Decision Making Medical Decision Making [facility] Narrative: 85-year-old male with medical history of HTN, HLD, CAD, AAA, carotid stenosis, PVD on clopidogrel presents to the ED due to nosebleed that started this morning. Patient states he woke up this morning and noticed very scant light blood coming from both nostrils, that began to get heavier throughout the day. Patient states that the bleeding would stop for about 20-30 minutes at a time before starting again. VS on initial observation-BP 113/54, pulse rate of 120, respiratory rate of 20, afebrile with oral temp of 98?, O2 saturation 99% on room air. On physical exam patient is well-appearing, HEENT exam reveals blood of the posterior oropharynx, scant blood within both nares. The L nare has an identifiable area of bleeding. Labs without leukocytosis/leukopenia, normocytic stable anemia with a hemoglobin of 11.1, hematocrit of 32.3, no electrolyte abnormalities I had patient clear clots in the posterior oropharynx by gargling warm water, I had the patient blow his nose clear nasal clots without significant bleeding. Afrin was then applied to both nares, and nose was clamped for approximately 30 minutes. I applied topical cocaine to left Cano before performing cautery with silver nitrate. Patient handled the procedure well. Bleeding has stopped. Patient with tachycardia ranging from 110's to 123. Patient did not take his daily medications today and is on metoprolol tartrate 50mg BID. Patient was given his dose of 50mg metoprolol and 20mg lisinopril before discharge. I counseled patient to follow up with his PCP, and stated he has an upcoming appointment on 12/01/25. Patient is anxious to go home. I counseled patient on strict return precautions. Patient and his family are in agreement with the plan. Differential Diagnosis Differential Diagnoses: The differential diagnosis associated with the presentation includes Posterior epistaxis Anterior epistaxis Septal irritation/ulceration Septal perforation Trauma Admission/Observation Consideration of admission/observation: Escalation of care including admission/observation considered I considered admission however labs without derangement, no evidence of critical anemia, bleeding was stopped while in the department no indication for admission Lab Data [facility] Lab Attestation statement: I reviewed the patient's lab results. 11/10/25 14:37 11/10/25 14:37 Labs: Lab Results 11/10/25 Range/Units 14:37 WBC 7.8 (4.8-10.8) X10*3/uL RBC 3.41 L (4.60-5.80) X10*6/uL Hgb 11.1 L (14.0-18.0) g/dl Hct 32.3 L (42.0-52.0) % MCV 94.7 (80.0-98.0) fL MCH 32.6 (27.0-33.0) pg MCHC 34.4 (31.0-36.0) g/dl RDW 13.3 (11.0-16.0) % Plt Count 112 L (160-400) X10*3/uL MPV 9.0 L (9.4-12.4) fL Immature Gran % (Auto) 0.4 (0.0-0.4) % Neut % (Auto) 73.0 (45-73) % Lymph % (Auto) 17.3 L (20-40) % [place] % (Auto) 7.5 (2-11) % Eos % (Auto) 1.4 (0-4) % Baso % (Auto) 0.4 (0-2) % Lymph # (Auto) 1.4 (1.2-4.9) X10*3/uL [place] # (Auto) 0.6 (0.1-1.2) X10*3/uL Eos # (Auto) 0.1 (0.0-0.4) X10*3/uL Baso # (Auto) 0.0 (0.0-0.2) X10*3/uL Abs Immat Gran (auto) 0.03 (0.00-0.03) X10*3/uL Absolute Neuts (auto) 5.7 (2.0-8.3) x10*3/uL Absolute Nucleated RBC 0.000 (0.0-0.012) X10*3/uL Nucleated RBC % (auto) 0.0 (0.0-0.2) /100WBC PT 12.5 (11.2-13.5) SEC INR 1.0 (0.9-1.1) Sodium 136 (135-145) mmol/L Potassium 4.2 (3.3-5.1) mmol/L Chloride 105 (96-108) mmol/L Carbon Dioxide 22 (22-29) mmol/L Anion Gap 13 (12-20) BUN 38 H (9-16) mg/dL Creatinine 1.22 (0.5-1.4) mg/dL Estim Creat Clear Calc 40.6 Estimated GFR 56 Random Glucose 107 (60-115) mg/dL Calcium 9.2 (8.4-10.2) mg/dL Total Bilirubin 0.6 (0.0-1.0) mg/dL AST 27 (5-37) U/L ALT 22 (0-40) U/L Alkaline Phosphatase 105 (39-117) U/L Total Protein 6.7 (6.5-8.0) g/dL Albumin 4.0 (3.5-5.0) g/dL Independent Historian Clinical information obtained from an independent historian. History obtained from or confirmed by: Other External Record Review External record reviewed: Inpatient record, Office record and Outpatient record Chronic Conditions Patient?s care impacted by: Hypertension and Other (HLD, CAD, AAA, carotid stenosis, PVD on clopidogrel) Discharge Plan Discharge Clinical Impression: Anterior epistaxis Patient Disposition: Home, Self-Care Instructions: Nosebleed (ED) Additional Instructions: You were evaluated in the emergency department due to nosebleed. Your labs were reassuring as there was no severe anemia, your hemoglobin was 11.1, your hematocrit was 32.3. You had no increased white blood cell count indicative of infection. You had no electrolyte abnormalities. Your nose was clamped, Afrin was applied, liquid cocaine was applied and cautery was performed using silver nitrate over the area of the left Cano that I believe was causing the bleeding. You were given your dose of lisinopril, and metoprolol for high blood pressure and heart rate control before discharge. Please follow up with your primary care doctor to ensure resolution of your symptoms. Please return to the emergency department if the no starts bleeding again, chest pain, shortness of breath, fevers over 100.4?, or any new/worsening/concerning symptoms. Prescriptions: No Action ezetimibe 10 mg tablet 10 mg PO DAILY Qty: 90 3RF metoprolol tartrate 50 mg tablet 50 mg PO BID@0900,1400 Qty: 180 3RF betamethasone dipropionate 0.05 % cream 1 appl topical BID Qty: 45 0RF Rx Instructions: APPLY to affected area twice a day as directed clopidogrel 75 mg tablet 75 mg PO DAILY Qty: 90 1RF cilostazol 100 mg tablet 100 mg PO BID@0900,1400 Qty: 180 1RF ascorbate calcium (vitamin C) 500 mg tablet 500 mg PO DAILY atorvastatin 80 mg tablet 80 mg PO DAILY famotidine 20 mg tablet 20 mg PO BID@0900,1400 lisinopril 20 mg tablet 10 mg PO DAILY levetiracetam 250 mg tablet 250 mg PO BID Print Language: Armenian
[2025-11-10 14:48] LABS: MANUAL DIFF FLAG NO
[2025-11-10 14:53] LABS: Hematocrit 32.3 % (42.0-52.0); Hemoglobin 11.1 g/dl (14.0-18.0); Imm Gran Abs Auto 0.03 X10*3/uL (0.00-0.03); Imm Gran Pct Auto 0.4 % (0.0-0.4); Lymphocytes Absolute Auto 1.4 X10*3/uL (1.2-4.9); Mean Corpuscular HGB Conc 34.4 g/dl (31.0-36.0); Mean Corpuscular Hemoglobin 32.6 pg (27.0-33.0); Mean Corpuscular Volume 94.7 fL (80.0-98.0); NRBC Abs Auto 0.000 X10*3/uL (0.0-0.012); NRBC Pct Auto 0.0 /100WBC (0.0-0.2); Platelet Count 112 X10*3/uL (160-400); Red Blood Count 3.41 X10*6/uL (4.60-5.80); White Blood Count 7.8 X10*3/uL (4.8-10.8)
[2025-11-10 14:57] LABS: INTERNATIONAL NORM RATIO 1.0 (0.9-1.1); Prothrombin Time 12.5 SEC (11.2-13.5)
[2025-11-10 15:07] LABS: Alanine Aminotransferase 22 U/L (0-40); Albumin Level 4.0 g/dL (3.5-5.0); Alkaline Phosphatase 105 U/L (39-117); Anion Gap 13 (12-20); Aspartate Amino Transferase 27 U/L (5-37); Blood Urea Nitrogen 38 mg/dL (9-16); Calcium 9.2 mg/dL (8.4-10.2); Carbon Dioxide 22 mmol/L (22-29); Chloride 105 mmol/L (96-108); Creatinine Clr Calc Pharmacy 40.6; Estimated Glomerular Filt Rate 56; Potassium 4.2 mmol/L (3.3-5.1); Sodium 136 mmol/L (135-145); Total Protein 6.7 g/dL (6.5-8.0)
--- NOTE | 2025-11-10 15:37 | PC.NURSE ---
Patient moved from waiting room to ED 18. Epistaxis clip remains in place. Patient refused to change into hospital gown. Patient is alert/oriented, calm/cooperative. Visitor present. Awaiting ED provider for evaluation. Patient takes anticoagulants. Nosebleed began around 7am today, with clots & coughing. Airway patent at this time.
[2025-11-10] MEDS: Oxymetazoline HCl 0.05 % Nasal 15 ML SPRAY 2 SPRAY NOSTRIL-B (16:53)
[2025-11-10] MEDS: Silver Nitrate Applicator STICK..EA. 1 APPL TOPICAL (18:27)
[2025-11-10] MEDS: Cocaine HCl 4 % 4 ML SOLUTION TOPICAL (18:27)
--- OUTSIDE RECORDS SUMMARY | 2025-11-10 22:31 | XMS_ITS | Patient Health Record ---
Author Organization [facility] Address [address] [place] [address] Care Team Providers Care Api Architect Name Role Phone Noa (RETIRED) Oleg CHIRINOS Primary Care Provide r Adela James Unavailable [phone] Reason For Referral No Information Medications Medication SIG (Take, Route, Frequency, Duration) Notes Start Date End Date Status Cilostazol 100 MG Tablet 1 tablet 30 min utes before or 2 hours after breakfast and dinner Orally Active Famotidine 20 MG Tablet 1 tablet Orally Active Metoprolol Tartrate 50 MG Tablet 1 tablet Orally Active Lisinopril 10 MG Tablet 1 tablet Orally Once a day Active Atorvastatin Calcium 80 MG Tablet 1 tablet Orally Once a day Active Vitamin C 1000 MG Tablet 1 tablet Orally Once a day Active Symbicort 80-4.5 MCG/ACT Aerosol 2 puffs Inhalation Twice a day Active Colyte w Flavor Packs 240 GM Solution Reconstituted as directed Orally as directed; Duration: 1 day(s) 02/09/2015 Active Aspir-81 81 MG Tablet Delayed Release 1 tablet Orally Once a day Active Social History Social History Additional Details Category Social Info Options Details Miscellaneous: Marital status: Occupation: retired Section Notes: Nonsmoker > 20 yrs; occ. alc ohol Problems Problem Type SNOMED Code ICD Code Onset Dates Problem Status W/U Status Risk Notes Problem Colon cancer screening (919921105) Colon cancer screening (V76.51) Active confirmed Problem Gastroesophageal reflux disease (001621690) GERD (gastroesophage al reflux disease) (530.81) Active confirmed Problem Essential hypertension (19213607) Essential hypertension (401.9) Active confirmed Plan Of Treatment No Information Insurance Providers Payer Name Payer Address Payer Phone Subscriber Number Group Number Insured Name Patient Relationship to Insured Coverage Start Date Coverage End Date MEDICARE OF [place] [address] [place] [address] [id number] ADELA COVARRUBIAS Self - patient is the insured [employer] ATTN CLAIMS [address] [place] [address] [id number] ANGELINA MILTONADELA Self - patient is the [...] Hypertension Hyperlipidemia Esophageal obstruction as above Denies IA,DM,CVA,renal disease Negative screening colonoscopy in 2, other than some diverticulosis COPD he described that he takes t he Cilostazol for his legs---? If he has peripheral vascular disease with claudication Hgb 13.5, MCV 88, Iron 153, Iron sat 54% --05/2014 Abdominal aortic aneurysm Surgical History Surgery Date(Month/Year) 3 V-CABG in approx. 2010 or 2011
--- OUTSIDE RECORDS SUMMARY | 2025-11-10 22:31 | XMS_ITS | Patient Health Record ---
Author Organization [facility] Address [address] [address] Care Team Providers Care Optical Brightener Maker Helper Name Role Phone Oleg Latham MD Primary Care Provider Unavaila Marlene Rodriguez Unavailable [phone] Reason For Referral No Information Medications Medication SIG (Take, Route, Frequency, Duration) Notes Start Date End Date Status Lisinopril Active Metoprolol & Diet Manage Prod Active Famotidine Active Cilostazol Active Symbicort Active Vitamin C Active Aspirin Active Atorvastatin Calcium Active Problems Problem Type SNOMED Code ICD Code Onset Dates Problem Status W/U Status Risk Notes Problem Onychomycosis (553380300) Onychomycosis (110.1) Active confirmed Problem Hammer toe (920587976) Hammer toe (735.4) Active confirmed Problem 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) Active confirmed Problem Ingrowing nail (319489199) Ingrowing Nail (703.0) Active confirmed Plan Of Treatment Pending Test Test Name Order Date [id number] NAIL, 6 OR MORE 07/21/2014 [id number] Plate 07/21/2014 Insurance Providers Payer Name Payer Address Payer Phone Subscriber Number Group Number Insured Name Patient Relationship to Insured Coverage Start Date Coverage End Date Medicare [employer] [address] [place] [address] [id number] Javier Adame Self - patient is the insured [facility] [address] [place] [address] [id number] Javier Adame Self - patient is the insured Medical (General) History Medical History History ICD Code Hyperlipidemia Hypertension Chicken pox Measles Mumps Surgical History Surgery Date(Month/Year) triple bypass 01/31/2012
== END 2025-11-10 18:40 | disposition home or self-care (01) ==
PROVIDERS: Physician Assistant Medical; Emergency Provider Emergency Medicine; PCP Internal Medicine
DX: R04.0 Epistaxis (principal); I10 Essential (primary) hypertension; E78.5 Hyperlipidemia, unspecified; I48.91 Unspecified atrial fibrillation; Z79.02 Long term (current) use of antithrombotics/antiplatelets; Z79.899 Other long term (current) drug therapy; Z79.01 Long term (current) use of anticoagulants
CPT/HCPCS: 30901; 36415; 80053; 85025; 85610; 99283; 99284; C9143